=== PATIENT | female | born 1935 | race Asian ===

== ENCOUNTER 2017-02-23 11:24 | Emergency (ER) | payer OTHER ==
[2017-02-23 11:30] VITALS: BMI 27.1
--- NOTE | 2017-02-23 11:46 | PDOC ---
History of Present Illness - History of Present Illness Initial Comments: 02/23/17 12:09 The patient is a 81 year old female, with a significant past medical history of COPD/Asthma, Afib (on Xarelto), CHF, hypertension, and hypothyroidism, who presents to the emergency department with bruising to her head s/p mechanical fall yesterday. The patient states she lost her balance last night while putting on her pants and fell to the floor. She states she was able to get her knee down to the floor first, but reports hitting her head on the door. The patient presents with her daughter who states she was monitoring her mother s/p fall for any nausea, vomiting, mental status changes, which the patient currently denies. The patient reports posterior neck pain and frontal headache and dizziness this morning so was brought to the ED for evaluation. She denies chest pain and shortness of breath. She denies fever, chills, nausea , vomit, diarrhea and constipation. She denies dysuria, frequency, urgency and hematuria. Allergies: NKDA Past surgical history: appendectomy <Melissa Mo - Last Filed: 02/23/17 13:47> - General History Source: Patient Exam Limitations: No Limitations - History of Present Illness Initial Comments: 02/23/17 11:49 <Kevin Brady - Last Filed: 02/23/17 15:13> - General Chief Complaint: Injury Stated Complaint: FALL/ BRUISING TO HEAD Time Seen by Provider: 02/23/17 11:35 Past History <Melissa Mo - Last Filed: 02/23/17 13:47> - Past Medical History Anemia: No Asthma: Yes Cancer: No Cardiac Disorders: Yes (A.FIB) CVA: No COPD: Yes CHF: Yes Dementia: No Diabetes: No GI Disorders: No Disorders: No HTN: Yes Hypercholesterolemia: No Liver Disease: No Seizures: No Thyroid Disease: Yes (HYPO) Other medical history: HARD OF HEARING. - Surgical History Abdominal Surgery: Yes Appendectomy: Yes Cardiac Surgery: No Cholecystectomy: No Lung Surgery: No Neurologic Surgery: No Orthopedic Surgery: Yes (R ARTHROSCOPY) - Psycho/Social/Smoking Cessation Hx Anxiety: No Suicidal Ideation: No Smoking Status: No Smoking History: Never smoked Have you smoked in the past 12 months: No Number of Cigarettes Smoked Daily: 0 Hx Alcohol Use: No Drug/Substance Use Hx: No Substance Use Type: None Hx Substance Use Treatment: No <Kevin Brady - Last Filed: 02/23/17 15:13> - Past Medical History Allergies/Adverse Reactions: Allergies Allergy/AdvReac Type Severity Reaction Status Date / Time budesonide [From Symbicort] Allergy Severe Verified 02/23/17 11:27 formoterol fumarate Allergy Severe Verified 02/23/17 11:27 [From Symbicort] moxifloxacin HCl Allergy Intermediate Verified 02/23/17 11:27 [From Avelox] Penicillins Allergy Mild Hives Verified 02/23/17 11:27 Home Medications: Ambulatory Orders Acetaminophen [Tylenol] 650 mg PO PRN PRN 01/07/16 Atorvastatin Ca [Lipitor] 10 mg PO HS 01/07/16 Calcium 250Mg/Vit-D 125 Units [Oscal 250 mg+D -] 1 combo PO DAILY 01/07/16 Diltiazem Cd [Cardizem Cd -] 180 mg PO DAILY 01/07/16 Fluticasone/Salmeterol [Advair 250-50 Diskus] 2 each IH BID 01/07/16 Levothyroxine [Synthroid -] 25 mcg PO DAILY 01/07/16 Montelukast Na [Singulair -] 10 mg PO HS 01/07/16 Polyvinyl Alcohol [Liquitears] 15 ml OP DAILY 01/07/16 Rivaroxaban [Xarelto] 1 each PO HS 01/07/16 Travoprost (Benzalkonium) [Travatan 0.004% Eye Drop] 5 ml OP HS 01/07/16 Colchicine 0.6 mg PO PRN 07/11/16 Nitrofurantoin Monohyd/M-Cryst [Macrobid -] 100 mg PO BID #10 capsule 02/23/17 Review of Systems - Review of Systems Able to Perform ROS?: Yes Comments:: 02/23/17 12:09 CONSTITUTIONAL: No reported: Fever, Chills, Diaphoresis, Generalized Weakness, Malaise, Loss of Appetite HEENT: (+) Hematoma over left forehead and eye. No reported: Rhinorrhea, Nasal Congestion, Throat Pain, Throat Swelling, Difficulty Swallowing, Mouth Swelling, Ear Pain, Visual Changes CARDIOVASCULAR: No reported: Chest Pain, Syncope, Palpitations, Irregular Heart Rate, Lightheadedness, Peripheral Edema RESPIRATORY: No reported: Cough, Shortness of Breath, SOB with Exertion, Orthopnea, Wheezing , Stridor, Hemoptysis GASTROINTESTINAL: No reported: Abdominal pain, Abdominal Distension, Nausea, Vomiting, Diarrhea, Constipation, Melena, Hematochezia GENITOURINARY: No reported: Dysuria, Frequency, Urgency, Hesitancy, Flank Pain, Genital Pain MUSCULOSKELETAL: No reported: Myalgia, Arthralgia, Joint Swelling, Back pain, Neck Pain SKIN: No reported: Rash, Itching, Pallor HEMEATOLOGIC/IMMUNOLOGIC: No reported: Easy Bleeding, Easy Bruising, Lymphadenopathy, Frequent infections ENDOCRINE: No reported: Unexplained Weight Gain, Unexplained Weight Loss, Heat Intolerance , Cold Intolerance NEUROLOGIC: (+) Headache, Dizziness No reported: Focal Weakness, Paresthesias, Lightheadedness, Unsteady Gait, Seizure, Mental Status Changes, Incontinence PSYCHIATRIC: No reported: Anxiety, Depression <Melissa Mo - Last Filed: 02/23/17 13:47> *Physical Exam - Vital Signs Last Vital Signs Temp Pulse Resp BP Pulse Ox 98.2 F 85 18 147/65 98 02/23/17 11:26 02/23/17 11:26 02/23/17 11:26 02/23/17 11:26 02/23/17 11:26 - Physical Exam Comments: 02/23/17 12:10 GENERAL: The patient is awake, alert, and fully oriented, Nontoxic - in no acute distress. HEAD: (+) large hematoma L foreheadthat is mildly tender, no crepitus or stepffs mildly tender to palpation on L periorbital rim, ecchymosis on b/l forehead and under her L eye. EYES: pupils 3mm symmetrically reactive to light, extraocular movements intact, sclera anicteric, conjunctiva clear. ENT: Normal voice, Moist mucous membranes. NECK: Normal range of motion, +prrapsinal tenderness on L paracervical region no midline tenderness BACK: No bony midline tenderness in the cerivcal/throacic/lumbar region. LUNGS: Breath sounds equal, clear to auscultation bilaterally. No wheezes, no rhonchi, no rales. HEART: Regular rate and rhythm, without murmur, rub or gallop. ABDOMEN: Soft, nontender, normoactive bowel sounds. No guarding, no rebound.No CVA tenderness EXTREMITIES: Normal range of motion, no edema. No clubbing or cyanosis. No cords, erythema, or tenderness. NEUROLOGICAL: No facial assymetry, Normal speech, moving all 4 extremities spontaneously and symmetrically, sensation intact throughout, normal finger to nose and rapid alternating movements. PSYCH: Normal mood, normal affect. SKIN: Warm, Dry, normal turgor <Melissa Mo - Last Filed: 02/23/17 13:47> - Vital Signs Last Vital Signs Temp Pulse Resp BP Pulse Ox 98.2 F 85 18 147/65 98 02/23/17 11:26 02/23/17 11:26 02/23/17 11:26 02/23/17 11:26 02/23/17 11:26 <Kevin Brady - Last Filed: 02/23/17 15:13> Heart Score/ECG Review - ECG Impressions Comment:: 02/23/17 14:03 Twelve-lead EKG was performed and reviewed by me. Irregularly irregular rate of [address] changes suggestive of acute ischemia <Kevin Brady - Last Filed: 02/23/17 15:13> ED Treatment Course - LABORATORY CBC & Chemistry Diagram: 02/23/17 11:52 02/23/17 11:52 - RADIOLOGY Radiograph Interpretation: 02/23/17 13:[address] was read by Dr. Diaz at 13:20 Impression: No CT evidence of acute intracranial pathology Cervical spine CT was read by Dr. Diaz at 13:32 Impression: No fractures identified Facial Bones CT was read by Dr. Diaz at 13:32 Impression: No fractures identified <Melissa Mo - Last Filed: 02/23/17 13:47> - LABORATORY CBC & Chemistry Diagram: 02/23/17 11:52 02/23/17 11:52 <Kevin Brady - Last Filed: 02/23/17 15:13> Medical Decision Making - Medical Decision Making 02/23/17 11:54 81y F hx of copd/asthma, afib on xerolto, chf, htn, hypothyroidism presenst s/p fall - the pt was at home and changing her pants yetserday when she lost her balance and fell landing on knee and striking her head, pt complaining of headache with some dizziness and mild posterior neck pain (paraspinal tenderness ), no focal neuro logic exams non no cerebellar findings. will obtain ct head, facial bones, ct cervical spine will give pt some tylenol for headache A portion of this note was documented by scribe services under my direction. I have reviewed the details of the note, within reason, and agree with the documentation with the following case summary and management plan written by me 02/23/17 15:09 labs reivewed noted for mild leukocytosis UA c/w uti, urine culture sent will treate with macrobid cts and xrays are negative will dc with pmd fu return precautions were discussed I discussed the physical exam findings, ancillary test results and final diagnoses with the patient. I answered all of the patient's questions. The patient was satisfied with the care received and felt comfortable with the discharge plan and treatment plan. The patient will call their primary care physician within 24 hours to arrange follow-up and will return to the Emergency Department with any new, persistent or worsening symptoms. <Kevin Brady - Last Filed: 02/23/17 15:13> *DC/Admit/Observation/Transfer - Attestations Scribe Attestion: 02/23/17 12:10 Documentation prepared by Melissa Mo, acting as coroner/medical examiner for Kevin Brady MD, MD <Melissa Mo - Last Filed: 02/23/17 13:47> - Discharge Dispostion Admit: No <Kevin Brady - Last Filed: 02/23/17 15:13> Diagnosis at time of Disposition: Mechanical Fall UTI (urinary tract infection) Qualifiers: Urinary tract infection type: site unspecified Hematuria presence: with hematuria Qualified Code(s): N39.0 - Urinary tract infection, site not specified ; R31.9 - Hematuria, unspecified Traumatic hematoma of head Qualifiers: Encounter type: initial encounter Qualified Code(s): S00.93XA - Contusion of unspecified part of head, initial encounter Traumatic hematoma of left knee Qualifiers: Encounter type: initial encounter Qualified Code(s): S80.02XA - Contusion of left knee, initial encounter - Discharge Dispostion Disposition: HOME Condition at time of disposition: Improved - Referrals Referrals: Kleber Barragan MD [Primary Care Provider] - - Patient Instructions Printed Discharge Instructions: DI for Urinary Tract Infection (UTI), DI for Hematoma (Bruise) Additional Instructions: Return to the emergency department immediately with ANY new, persistent or worsening symptoms. Take the antibiotics as prescribed. You may take some Tylenol as needed for any pain or discomfort. If you have any fevers or chills or worsening back pain please return to the emergency department for further evaluation You MUST call and follow up with your doctor tomorrow for further evaluation of your symptoms. Results were discussed with you. Please make sure your doctor reviews the results of your emergency evaluation. Print Language: CZECH
[2017-02-23] MEDS ORDERED: ONDANSETRON 4 MG/2 ML VIAL IVPB ONE (12:02)
[2017-02-23] MEDS ORDERED: ACETAMINOPHEN 325 MG TABLET (FP) PO ONE ×2 (12:02→15:10)
[2017-02-23 12:04] LABS: BASOPHIL 0.3 % (0-2.0); EOSINOPHIL 0.9 % (0-4.5); MCH 32.9 pg (25.7-33.7); MCHC 31.9 g/dl (32.0-36.0); MEAN CELL VOLUME 103.4 fl (80-96); MEAN PLT VOLUME 7.4 fl (7.5-11.1); NEUTROPHILS 53.7 % (42.8-82.8); PLATELET COUNT 217 K/MM3 (134-434); RDW 14.7 % (11.6-15.6)
[2017-02-23] MEDS ORDERED: ONDANSETRON 4 MG/2 ML VIAL ONE (12:05)
[2017-02-23] MEDS ORDERED: ACETAMINOPHEN 325 MG TABLET (FP) ONE (12:05)
[2017-02-23 12:20] LABS: INR 1.82 (0.82-1.09); PROTHROMBIN TIME (PATIENT) 20.3 SEC (9.98-11.88)
[2017-02-23 12:29] LABS: ALBUMIN 3.7 g/dl (3.4-5.0); BILIRUBIN,TOTAL 0.5 mg/dL (0.2-1.0); CALCIUM 8.6 mg/dL (8.5-10.1); COCKROFT - GAULT 30.515; CREATININE 1.3 mg/dL (0.55-1.02); TOT PROT 7.4 g/dl (6.4-8.2)
[2017-02-23 14:07] LABS: URINE APPEARANCE CLOUDY; URINE BILIRUBIN NEGATIVE (NEGATIVE); URINE COLOR YELLOW; URINE GLUCOSE (UA) NEGATIVE (NEGATIVE); URINE KETONE NEGATIVE (NEGATIVE); URINE NITRITE POSITIVE (NEGATIVE); URINE PROTEIN NEGATIVE (NEGATIVE); URINE UROBILINOGEN NEGATIVE E.U./dl (0.2-1.0)
[2017-02-23 14:12] LABS: URINE BLOOD 2+ (NEGATIVE); URINE LEUK ESTERASE 3+ (NEGATIVE)
[2017-02-23 14:14] LABS: URINE BACTERIA MODERATE /hpf (NONE SEEN); URINE MUCUS RARE; URINE RBC 5 /hpf (0-3); URINE WBC 237 /hpf (3-5); YEAST FEW
[2017-02-23] MEDS ORDERED: NITROFURANTOIN MACROCRYSTAL 50 MG CAPSULE (FP) PO SCH (15:15)
[2017-02-23] MEDS ORDERED: NITROFURANTOIN MACROCRYSTAL 50 MG CAPSULE (FP) ONE (15:15)
[2017-02-23 15:36] VITALS: BP 122/63; PULSE 63; TEMP 98
--- NOTE | 2017-02-24 11:10 | EKG ---
Test Reason : Blood Pressure : / mmHG Vent. Rate : 089 BPM Atrial Rate : 122 BPM P-R Int : 000 ms QRS Dur : 082 ms QT Int : 376 ms P-R-T Axes : 000 055 057 degrees QTc Int : 457 ms ATRIAL FIBRILLATION WITH PREMATURE VENTRICULAR OR ABERRANTLY CONDUCTED COMPLEXES ABNORMAL ECG WHEN COMPARED WITH ECG OF 09-DEC-2015 18:37, NO SIGNIFICANT CHANGE WAS FOUND Confirmed by ANTONIO BARAHONA MD ([id number]) on 02/24/2017 11:09:52 AM Referred By: Confirmed By:ANTONIO BARAHONA MD
== END 2017-02-23 15:36 | disposition home or self-care (01) ==
LOC: SUPCPDRO 11:24 → JER 11:24
DX: S00.83XA Contusion of other part of head, initial encounter (principal); S80.02XA Contusion of left knee, initial encounter; N39.0 Urinary tract infection, site not specified; R31.9 Hematuria, unspecified; W01.198A Fall on same level from slipping, tripping and stumbling with subsequent striking against other object, initial encounter; Y93.89 Activity, other specified; Y92.018 Other place in single-family (private) house as the place of occurrence of the external cause; I48.91 Unspecified atrial fibrillation; Z79.01 Long term (current) use of anticoagulants; I50.9 Heart failure, unspecified; I10 Essential (primary) hypertension; E03.9 Hypothyroidism, unspecified; J44.9 Chronic obstructive pulmonary disease, unspecified; J45.909 Unspecified asthma, uncomplicated; B96.89 Other specified bacterial agents as the cause of diseases classified elsewhere
CPT/HCPCS: 36415; 70450-TC; 70486-TC; 72125-TC; 73560-TC-RT; 73562-TC-LT; 80053; 81003; 81015; 85025; 85610; 87086; 87186; 93005; 93010; 99284-25

== ENCOUNTER 2017-06-18 06:43 | Day surgery (SDC) | payer OTHER ==
[2017-06-17 11:54] VITALS: BMI 26.2
[2017-06-18] MEDS ORDERED: TROPICAMIDE 1% OPHTH SOLN 15 ML BOTTLE ONE (06:56)
[2017-06-18] MEDS ORDERED: PHENYLEPHRINE 2.5% OPHTH SOLN 15 ML BOTTLE ONE (06:56)
[2017-06-18] MEDS ORDERED: CYCLOPENTOLATE HCL 1% OPHTH SOLN 2 ML BOTTLE ONE (06:56)
[2017-06-18] MEDS ORDERED: CIPROFLOXACIN 0.3% EYE DROPS 5 ML BOTTLE ONE (06:56)
[2017-06-18] MEDS ORDERED: FLURBIPROFEN 0.03% OPHTH SOLN 2.5 ML BOTTLE ONE (06:56)
[2017-06-18] MEDS ORDERED: TROPICAMIDE 1% OPHTH SOLN 15 ML BOTTLE OS ONE ×3 (07:05→07:15)
[2017-06-18] MEDS ORDERED: CIPROFLOXACIN HCL 0.3% OPHTH 2.5ML BOTTLE OS ONE ×3 (07:05→07:15)
[2017-06-18] MEDS ORDERED: FLURBIPROFEN 0.03% OPHTH SOLN 2.5 ML BOTTLE OS ONE ×3 (07:05→07:15)
[2017-06-18] MEDS ORDERED: PHENYLEPHRINE 2.5% OPHTH SOLN 15 ML BOTTLE OS ONE ×3 (07:05→07:15)
[2017-06-18] MEDS ORDERED: CYCLOPENTOLATE HCL 1% OPHTH SOLN 2 ML BOTTLE OS ONE ×3 (07:05→07:15)
[2017-06-18 07:07] VITALS: TEMP 97.7
[2017-06-18] MEDS ORDERED: VANCOMYCIN 500 MG VIAL (RESTRICTED TO ID ONLY) ONE (07:28)
[2017-06-18] MEDS ORDERED: LIDOCAINE HCL/PF 2% SDV 5ML VIAL ONE ×2 (07:28→07:30)
[2017-06-18] MEDS ORDERED: LIDOCAINE HCL 2% JELLY (5 ML/TUBE) ONE (07:28)
[2017-06-18] MEDS ORDERED: LIDOCAINE HCL/PF 1% SDV 5ML VIAL ONE (07:28)
[2017-06-18] MEDS ORDERED: EPINEPHrine/PF 1 MG/1 ML (1:1,000) AMPULE ONE (07:28)
[2017-06-18] MEDS ORDERED: BSS (NA/CA/MG/K) BALANCED SALT SOLUTION OPHTH SOLN 15 ML BOTTLE ONE (07:29)
[2017-06-18] MEDS ORDERED: WATER FOR INJ,STERILE 10 ML ONE (07:29)
[2017-06-18] MEDS ORDERED: POVIDONE-IODINE 5% OPHTHALMIC PREP 30 ML SOLUTION ONE (07:29)
[2017-06-18] MEDS ORDERED: BUPIVACAINE HCL/PF 0.75% 10 ML VIAL ONE (07:29)
[2017-06-18] MEDS ORDERED: ACETAMINOPHEN 325 MG TABLET (FP) PO PRN (07:52)
[2017-06-18] MEDS ORDERED: MIDAZOLAM HCL 2 MG/2 ML SINGLE DOSE VIAL ONE (07:58)
[2017-06-18] MEDS ORDERED: PROPOFOL 20 ML ONE (07:58)
[2017-06-18] MEDS ORDERED: PHENYLEPHRINE 2.5% OPHTH SOLN 15 ML BOTTLE OP SCH (08:00)
[2017-06-18] MEDS ORDERED: TROPICAMIDE 1% OPHTH SOLN 15 ML BOTTLE OP SCH (08:00)
[2017-06-18] MEDS ORDERED: CYCLOPENTOLATE HCL 1% OPHTH SOLN 2 ML BOTTLE OP SCH (08:00)
[2017-06-18] MEDS ORDERED: CIPROFLOXACIN HCL 0.3% OPHTH 2.5ML BOTTLE OP SCH (08:00)
[2017-06-18] MEDS ORDERED: FLURBIPROFEN 0.03% OPHTH SOLN 2.5 ML BOTTLE OP SCH (08:00)
[2017-06-18] MEDS ORDERED: LIDOCAINE HCL/PF 2% SDV 5ML VIAL PNB ONE ×2 (08:18)
[2017-06-18] MEDS ORDERED: BUPIVACAINE HCL/PF 0.75% 10 ML VIAL RB ONE (08:18)
[2017-06-18] MEDS ORDERED: BUPIVACAINE HCL/PF 0.75% 10 ML VIAL PNB ONE (08:18)
[2017-06-18] MEDS ORDERED: LIDOCAINE HCL 0.5% EPINEPHRINE 1:200,000 50 ML VIAL IJ ONE ×2 (08:34→08:38)
[2017-06-18] MEDS ORDERED: LIDOCAINE HCL 1% PRESERVATIVE FREE - 30ML VIAL IO ONE (08:39)
[2017-06-18] MEDS ORDERED: TRYPAN BLUE 0.5 ML DISP.SYRIN IO ONE (08:39)
[2017-06-18] MEDS ORDERED: CHONDROITIN SU A/HYALUR SOD 1 KIT IO ONE (08:40)
--- NOTE | 2017-06-18 09:55 | OP ---
DATE OF OPERATION: DATE OF DICTATION: 06/18/2017 PREOPERATIVE DIAGNOSIS: Cataract, left eye. POSTOPERATIVE DIAGNOSIS: Cataract, left eye. PROCEDURE: Phacoemulsification of left cataract with capsular staining with trypan blue and posterior chamber intraocular lens implantation; lens used [id number], 22.0 diopter power, serial No. [id number]. ANESTHESIA: Peribulbar/modified Van Lint/MAC. COMPLICATIONS: None. PROCEDURE: The patient was brought to the operating room and correctly identified, along with the operative site and correct intraocular lens moore. She was then given a peribulbar block under sedation with 5 mL of a 1:1 mixture of 2% lidocaine and 0.75% bupivacaine. Next, 3 mL of the same mixture was given as a modified Van Lint. The eye was then prepped and draped in the usual sterile fashion, including 5% Betadine solution in the conjunctival sac and an eyelid drape. A lid speculum was then attempted to be placed in the eye and a tight eye socket was noted. There was no hemorrhage noted and time was taken to apply some pressure to the eye socket, as was done after the block. Despite this, there was still an inadequate amount of exposure. The eye was noted to be soft, however, and there was no evidence of any active orbital bleeding. The decision, at this point, was made to do a small lateral cantholysis. Lidocaine 1% with epinephrine was injected into the lateral canthus. A clamp was placed at the lateral canthus, and using Simpson scissors, a small cantholysis was performed. The eyelid speculum was then noted to be placed and adequate exposure achieved. A 5-mm pupil was noted, and given the poor exposure, the decision was made to expand the capsule with trypan blue. A paracentesis port was created, and intracameral lidocaine given, and an air bubble placed. The capsule was stained with trypan blue and removed with further preservative-free lidocaine 1%. Viscoelastic was then placed into the anterior chamber and a temporal clear corneal wound was created. A continuous circular capsulorrhexis was performed and the nucleus hydrodissected with BSS and removed with phacoemulsification via a [id number] approach. The remaining cortical material was irrigated and aspirated from the eye. Viscoelastic was injected to inflate the capsular bag. The lens was injected into the capsular bag. Viscoelastic irrigated and aspirated from the eye. The wounds were then stromal hydrated and checked. No leakage was noted and no suture was placed. Topical vancomycin given. The eye patched and shielded. The patient was discharged from the operating room in a stable condition. TIFF GIBBONS M.D. [id number]
[2017-06-18] MEDS ORDERED: TRYPAN BLUE 0.5 ML DISP.SYRIN ONE (10:12)
[2017-06-18 10:28] VITALS: BP 123/68; PULSE 67
== END 2017-06-18 10:32 | disposition home or self-care (01) ==
LOC: JASU-SURG 06:43
PROVIDERS: ATTEND Ophthalmology
PROC: 08RK3JZ Replacement of Left Lens with Synthetic Substitute, Percutaneous Approach (ICD-10-PCS; principal; 2017-06-18 08:00)
DX: H26.9 Unspecified cataract (principal)

== ENCOUNTER 2017-07-26 16:22 | Emergency (ER) | payer OTHER ==
[2017-07-26 16:39] VITALS: BMI 28.5
--- NOTE | 2017-07-26 17:36 | PDOC ---
History of Present Illness <Jerri Poole - Last Filed: 07/26/17 20:26> - General History Source: Patient, Old Records Exam Limitations: No Limitations - History of Present Illness Initial Comments: 07/26/17 18:35 The patient is an 81 year old female, accompanied by daughter, with a past medical history of hypertension, hyperlipidemia, atrial fibrillation on Xarelto, CHF, COPD, and osteoarthritis, who presents to the emergency department today s/ p fall. As per daughter the patient was found today on the floor and was unable to recall how she had fell. The patient notes that she hit her head and reports associated neck pain, but was unable to recall any other details regarding her fall. She denies fever, vomiting, and nausea. <Luis Enrique Ku - Last Filed: 07/27/17 00:34> - General Chief Complaint: Lightheaded Stated Complaint: FALL Time Seen by Provider: 07/26/17 16:52 Past History - Past Medical History Anemia: No Asthma: Yes Cancer: No Cardiac Disorders: Yes (A.FIB) CVA: Yes (no residual deficet) COPD: Yes CHF: No Dementia: No Diabetes: No GI Disorders: No Disorders: No HTN: Yes Hypercholesterolemia: Yes Liver Disease: No Seizures: No Thyroid Disease: Yes (HYPO) - Surgical History Abdominal Surgery: Yes Appendectomy: Yes Cardiac Surgery: No Cholecystectomy: No Lung Surgery: No Neurologic Surgery: Yes (right eye) Orthopedic Surgery: Yes (R ARTHROSCOPY knee) - Suicide/Smoking/Psychosocial Hx Smoking Status: No Smoking History: Never smoked Have you smoked in the past 12 months: No Number of Cigarettes Smoked Daily: 0 Hx Alcohol Use: No Drug/Substance Use Hx: No Substance Use Type: None Hx Substance Use Treatment: No <Jerri Poole - Last Filed: 07/26/17 20:26> <Luis Enrique Ku - Last Filed: 07/27/17 00:34> - Past Medical History Allergies/Adverse Reactions: Allergies Allergy/AdvReac Type Severity Reaction Status Date / Time budesonide [From Symbicort] Allergy Severe Verified 07/26/17 16:34 formoterol fumarate Allergy Severe Verified 07/26/17 16:34 [From Symbicort] moxifloxacin HCl Allergy Intermediate Verified 07/26/17 16:34 [From Avelox] Penicillins Allergy Mild Hives Verified 07/26/17 16:34 Home Medications: Ambulatory Orders Atorvastatin Ca [Lipitor] 10 mg PO HS 01/07/16 Diltiazem Cd [Cardizem Cd -] 180 mg PO DAILY 01/07/16 Montelukast Na [Singulair -] 10 mg PO HS 01/07/16 Rivaroxaban [Xarelto] 20 mg PO HS 01/07/16 Colchicine 0.6 mg PO PRN 07/11/16 Allopurinol [Zyloprim -] 100 mg PO DAILY 06/17/17 Alprazolam 0.5 mg PO PRN PRN 06/17/17 Fluticasone/Salmeterol [Advair Hfa 115-21 Mcg Inhaler] 2 inh PO DAILY 06/17/17 Levothyroxine [Synthroid -] 125 mcg PO DAILY 06/17/17 Acetaminophen [Tylenol] 650 mg PO Q4HWA PRN 07/26/17 Calcium 250Mg/Vit-D 125 Units [Oscal 250 mg+D -] 1 tab PO DAILY 07/26/17 Cephalexin Monohydrate [Keflex -] 500 mg PO BID #14 capsule 07/26/17 Dextran 70/Hypromellose/Pf [Tears Naturale Free Drops] 1 drop OD QID 07/26/17 Travoprost [Travatan Z] 1 drop OS HS 07/26/17 Review of Systems - Review of Systems Able to Perform ROS?: Yes Comments:: GENERAL/CONSTITUTIONAL: No fever or chills. No weakness. HEAD, EYES, EARS, NOSE AND THROAT: (+) Neck pain. No change in vision. No ear pain or discharge. No sore throat. GASTROINTESTINAL: No nausea, vomiting, diarrhea or constipation. GENITOURINARY: No dysuria, frequency, or change in urination. CARDIOVASCULAR: No chest pain or shortness of breath. RESPIRATORY: No cough, wheezing, or hemoptysis. MUSCULOSKELETAL: (+) Neck pain SKIN: No rash NEUROLOGIC: (+) Headache, vertigo, loss of consciousness, or change in strength/ sensation. ENDOCRINE: No increased thirst. No abnormal weight change. HEMATOLOGIC/LYMPHATIC: No anemia, easy bleeding, or history of blood clots. ALLERGIC/IMMUNOLOGIC: No hives or skin allergy. <Luis Enrique Ku - Last Filed: 07/27/17 00:34> *Physical Exam - Vital Signs Last Vital Signs Temp Pulse Resp BP Pulse Ox 98.2 F 74 19 144/92 98 07/26/17 16:35 07/26/17 16:35 07/26/17 16:35 07/26/17 16:35 07/26/17 16:35 <Jerri Poole - Last Filed: 07/26/17 20:26> - Vital Signs Last Vital Signs Temp Pulse Resp BP Pulse Ox 98.2 F 74 19 144/92 98 07/26/17 16:35 07/26/17 16:35 07/26/17 16:35 07/26/17 16:35 07/26/17 16:35 - Physical Exam Comments: 07/26/17 18:48 GENERAL: Awake, alert, and fully oriented, in no acute distress HEAD:Left occipital hematoma EYES: PERRLA, EOMI, sclera anicteric, conjunctiva clear ENT: Auricles normal inspection, hearing grossly normal, nares patent, oropharynx clear without exudates. Moist mucosa NECK/BACK: (+) Normal ROM, supple, no lymphadenopathy, JVD, or masses. C3 and C4 tenderness LUNGS: Breath sounds equal, clear to auscultation bilaterally. No wheezes, and no crackles HEART: (+) Irregularly, irregular, normal S1 and S2, no murmurs, rubs or gallops ABDOMEN: Soft, nontender, normoactive bowel sounds. No guarding, no rebound. No masses EXTREMITIES: Normal range of motion, no edema. No clubbing or cyanosis. No cords, erythema, or tenderness NEUROLOGICAL: Cranial nerves II through XII grossly intact. SKIN: Warm, Dry, normal turgor, no rashes or lesions noted. <Luis Enrique Ku - Last Filed: 07/27/17 00:34> Heart Score/ECG Review - ECG Impressions Comment:: 07/26/17 19:11 ECG. IMPRESSION: Atrial Fibrillation with occasional PVCs <Luis Enrique Ku - Last Filed: 07/27/17 00:34> ED Treatment Course - LABORATORY CBC & Chemistry Diagram: 07/26/17 17:40 07/26/17 17:40 <Jerri Poole - Last Filed: 07/26/17 20:26> - LABORATORY CBC & Chemistry Diagram: 07/26/17 17:40 07/26/17 17:40 - ADDITIONAL ORDERS Additional order review: Laboratory Results 07/26/17 07/26/17 17:40 17:40 Sodium 138 Potassium 3.1 L D Chloride 101 Carbon Dioxide 29 Anion Gap 8 BUN 28 H Creatinine 1.1 H Creat Clearance w eGFR 47.43 Random Glucose 205 H D Calcium 8.3 L Total Bilirubin 0.7 D AST 16 ALT 34 D Alkaline Phosphatase 82 D Creatine Kinase 99 Troponin I < 0.02 Total Protein 7.1 Albumin 3.3 L TSH 2.23 07/26/17 17:40 RBC 3.82 MCV 102.7 H MCHC 32.5 RDW 14.9 MPV 9.0 D Neutrophils % 60.6 Lymphocytes % 28.4 D Monocytes % 8.6 Eosinophils % 2.0 D Basophils % 0.4 - RADIOLOGY Radiograph Interpretation: 07/27/17 00:33 Exam: CT Head Impression: No acute skull fracture, intracranial hemorrhage or parenchymal edema demonstrated. There is no acute cortical infarction, intracranial mass, edema, hydrocephalus or abnormal extra axial collection. The visualized paranasal sinuses and mastoids clear. Read By: Alvina Randolph MD EXAM: CT CERVICAL SPINE DATE OF SERVICE: 2017-07-26 19:15:27 IMAGES: 226 INDICATION: Fall. COMPARISON: None FINDINGS: Mild leftward curvature of the cervical spine seen. No acute fracture or abnormal prevertebral soft tissue swelling noted. Facet joints intact and normally aligned. Spinous processes intact. Study Description: CT CERVICAL SPINE Modality: CT Location: [facility] Referring Physician: ISABELLA MOELLER Mild disc narrowing and minimal anterolisthesis noted at C4-5. No neck soft tissue hemorrhage or edema seen. No pneumothorax in the lung apices. THIS DOCUMENT HAS BEEN ELECTRONICALLY SIGNED Alvina Randolph MD 07/26/2017 20:13 EST <Luis Enrique Ku - Last Filed: 07/27/17 00:34> Medical Decision Making - Medical Decision Making 07/26/17 18:38 Will obtain CTH and CT c-spine. Will evaluate for any cardiac reasons for fall, as well as pna or UTI. <Jerri Poole - Last Filed: 07/26/17 20:26> - Medical Decision Making 07/26/17 21:30 Patient found to have UTI which is expected based on prior history Treat with Keflex Will discuss with family to administer medications at home Monitor Patient stable for discharge <Luis Enrique Ku - Last Filed: 07/27/17 00:34> *DC/Admit/Observation/Transfer - Discharge Dispostion Admit: No <Jerri Poole - Last Filed: 07/26/17 20:26> - Attestations Scribe Attestion: 07/26/17 18:49 Documentation prepared by Luis Enrique Ku, acting as curator medical museum for Jerri Poole MD. <Luis Enrique Ku - Last Filed: 07/27/17 00:34> Diagnosis at time of Disposition: UTI (urinary tract infection) Qualifiers: Urinary tract infection type: acute cystitis Hematuria presence: without hematuria Qualified Code(s): N30.00 - Acute cystitis without hematuria - Discharge Dispostion Disposition: HOME Condition at time of disposition: Stable - Prescriptions Prescriptions: Cephalexin Monohydrate [Keflex -] 500 mg PO BID #14 capsule - Referrals Referrals: Kleber Barragan MD [Primary Care Provider] - - Patient Instructions Printed Discharge Instructions: DI for Urinary Tract Infection (UTI)
[2017-07-26 17:55] LABS: BASOPHIL 0.4 % (0-2.0); MCH 33.4 pg (25.7-33.7); MCHC 32.5 g/dl (32.0-36.0); MEAN CELL VOLUME 102.7 fl (80-96); NEUTROPHILS 60.6 % (42.8-82.8); PLATELET COUNT 245 K/MM3 (134-434); RDW 14.9 % (11.6-15.6); WHITE BLOOD COUNT 13.8 K/mm3 (4.0-10.0)
[2017-07-26 18:20] LABS: ALBUMIN 3.3 g/dl (3.4-5.0); ANION GAP 8 (8-16); BILIRUBIN,TOTAL 0.7 mg/dL (0.2-1.0); CALCIUM 8.3 mg/dL (8.5-10.1); CO2 29 mmol/L (21-32); CREATININE 1.1 mg/dL (0.55-1.02); GLUCOSE,RANDOM 205 mg/dL (74-106); SGOT/AST 16 U/L (15-37); SGPT/ALT 34 U/L (12-78); TOT PROT 7.1 g/dl (6.4-8.2)
[2017-07-26 18:23] LABS: ALK PHOS 82 U/L (45-117); CPK 99 IU/L (26-192); TROPONIN I < 0.02 ng/ml (0.00-0.05)
[2017-07-26 18:33] LABS: URINE APPEARANCE SLCLOUDY; URINE BILIRUBIN NEGATIVE (NEGATIVE); URINE BLOOD 2+ (NEGATIVE); URINE COLOR YELLOW; URINE GLUCOSE (UA) NEGATIVE (NEGATIVE); URINE KETONE NEGATIVE (NEGATIVE); URINE NITRITE NEGATIVE (NEGATIVE); URINE UROBILINOGEN NEGATIVE mg/dL (0.2-1.0)
[2017-07-26] MEDS ORDERED: POTASSIUM CHLORIDE ORAL LIQUID 20 MEQ/15 ML PO ONE (18:36)
[2017-07-26] MEDS ORDERED: POTASSIUM CHLORIDE ORAL LIQUID 20 MEQ/15 ML ONE (18:39)
[2017-07-26 18:43] LABS: URINE LEUK ESTERASE 1+ (NEGATIVE); URINE PROTEIN 1+ (NEGATIVE)
[2017-07-26 18:48] LABS: CALCIUM OXALATE CRYSTALS RARE /hpf (NONE SEEN); URINE BACTERIA FEW /hpf (NONE SEEN); URINE HYALINE CAST 5 /lpf; URINE MUCUS RARE; URINE RBC 13 /hpf (0-3); URINE WBC 15 /hpf (3-5)
[2017-07-26] MEDS ORDERED: CEFTRIAXONE 1 GM in DEXTROSE 5%-WATER - 50 ML IVPB ONE (19:22)
[2017-07-26] MEDS ORDERED: PIPERACILLIN/TAZOB 3.375 GM 50 ML IVPB ONE (19:42)
[2017-07-26 20:32] VITALS: BP 162/84; PULSE 90; TEMP 98
[2017-07-26] MEDS ORDERED: CEFTRIAXONE 50 ML ONE (20:45)
--- NOTE | 2017-07-27 08:38 | EKG ---
Test Reason : Blood Pressure : / mmHG Vent. Rate : 089 BPM Atrial Rate : 093 BPM P-R Int : 000 ms QRS Dur : 094 ms QT Int : 378 ms P-R-T Axes : 000 054 040 degrees QTc Int : 459 ms ATRIAL FIBRILLATION WITH PREMATURE VENTRICULAR OR ABERRANTLY CONDUCTED COMPLEXES ABNORMAL ECG WHEN COMPARED WITH ECG OF 23-FEB-2017 11:57, NO SIGNIFICANT CHANGE WAS FOUND Confirmed by MD KENYATTA, AMITA ([id number]) on 07/27/2017 8:37:50 AM Referred By: Confirmed By:AMITA YOU MD
== END 2017-07-26 21:21 | disposition home or self-care (01) ==
LOC: JER 16:22
DX: N30.00 Acute cystitis without hematuria (principal); S09.90XA Unspecified injury of head, initial encounter; W18.39XA Other fall on same level, initial encounter; Y93.89 Activity, other specified; Y92.018 Other place in single-family (private) house as the place of occurrence of the external cause; I48.91 Unspecified atrial fibrillation; Z79.01 Long term (current) use of anticoagulants; I25.10 Atherosclerotic heart disease of native coronary artery without angina pectoris; J44.9 Chronic obstructive pulmonary disease, unspecified; E03.9 Hypothyroidism, unspecified; M19.90 Unspecified osteoarthritis, unspecified site; Z86.73 Personal history of transient ischemic attack (TIA), and cerebral infarction without residual deficits; I10 Essential (primary) hypertension
CPT/HCPCS: 36415; 70450-TC; 71010-TC; 72125-TC; 80053; 81003; 81015; 84443; 84484; 85025; 87077; 87086; 93005; 93010; 96365; 99283-25

== ENCOUNTER 2017-11-28 01:20 | Emergency (ER) | payer OTHER ==
[2017-11-28 01:56] VITALS: TEMP 97.6; BMI 27.3
--- NOTE | 2017-11-28 02:30 | PDOC ---
History of Present Illness - General History Source: Patient Exam Limitations: No Limitations - History of Present Illness Initial Comments: 11/28/17 02:58 The patient is an 82 year old female with a significant PMH of COPD, HTN, hyperlipidemia, AFIB (on Xarelto), CVA, hypothyroidism, and osteoarthritis who presents with her daughter to the emergency department with cold-like symptoms and generalized weakness beginning approximately 1 week ago. The patient reports having a productive cough with associated shortness of breath and body aches including a headache and left sided back pain for the past week. She reports receiving Promethazine from her PCP to no relief. 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 However, she reports upon waking this morning that her shortness of breath is at its worst, prompting her visit. She endorses sick contacts at home. The patient denies chest pain and dizziness. Denies fever, chills, nausea, vomit, diarrhea and constipation. Denies dysuria, frequency, urgency and hematuria. Allergies: Budesonide, Formoterol fumarate, Moxifloxacin HCl, Penicillins Past surgical history: Abdominal surgery. Appendectomy. Right eye surgery. Right knee arthroscopy. Social history: No reported cigarette, alcohol, or drug use. PCP: None reported. <Luigi Arnett - Last Filed: 11/28/17 02:58> - General History Source: Patient <Allen Guzman - Last Filed: 11/28/17 06:31> - General Chief Complaint: Weakness Stated Complaint: WEAKNESS Time Seen by Provider: 11/28/17 01:49 Past History <Luigi Arnett - Last Filed: 11/28/17 02:58> - Past Medical History Anemia: No Asthma: Yes Cancer: No Cardiac Disorders: Yes (A.FIB) CVA: Yes (no residual deficet) COPD: Yes CHF: No Dementia: No Diabetes: No GI Disorders: No Disorders: No HTN: Yes Hypercholesterolemia: Yes Liver Disease: No Seizures: No Thyroid Disease: Yes (HYPO) - Surgical History Abdominal Surgery: Yes Appendectomy: Yes Cardiac Surgery: No Cholecystectomy: No Lung Surgery: No Neurologic Surgery: Yes (right eye) Orthopedic Surgery: Yes (R ARTHROSCOPY knee) - Suicide/Smoking/Psychosocial Hx Smoking Status: No Smoking History: Never smoked Have you smoked in the past 12 months: No Number of Cigarettes Smoked Daily: 0 Information on smoking cessation initiated: No Hx Alcohol Use: No Drug/Substance Use Hx: No Substance Use Type: None Hx Substance Use Treatment: No <CarlosAllen - Last Filed: 11/28/17 06:31> - Past Medical History Allergies/Adverse Reactions: Allergies Allergy/AdvReac Type Severity Reaction Status Date / Time budesonide [From Symbicort] Allergy Severe Verified 11/28/17 01:42 formoterol fumarate Allergy Severe Verified 11/28/17 01:42 [From Symbicort] moxifloxacin HCl Allergy Intermediate Verified 11/28/17 01:42 [From Avelox] Penicillins Allergy Mild Hives Verified 11/28/17 01:42 Home Medications: Ambulatory Orders Atorvastatin Ca [Lipitor] 10 mg PO HS 01/07/16 Diltiazem Cd [Cardizem Cd -] 180 mg PO DAILY 01/07/16 Montelukast Na [Singulair -] 10 mg PO HS 01/07/16 Rivaroxaban [Xarelto] 20 mg PO HS 01/07/16 Colchicine 0.6 mg PO PRN 07/11/16 Fluticasone/Salmeterol [Advair Hfa 115-21 Mcg Inhaler] 2 inh PO DAILY 06/17/17 Levothyroxine [Synthroid -] 125 mcg PO DAILY 06/17/17 Acetaminophen [Tylenol] 650 mg PO Q4HWA PRN 07/26/17 Calcium 250Mg/Vit-D 125 Units [Oscal 250 mg+D -] 1 tab PO DAILY 07/26/17 Dextran 70/Hypromellose/Pf [Tears Naturale Free Drops] 1 drop OD QID 07/26/17 Review of Systems - Review of Systems Able to Perform ROS?: Yes Comments:: 11/28/17 02:59 CONSTITUTIONAL: (+) Generalized weakness. (+) Body aches. Absent: fever, chills, diaphoresis, malaise, loss of appetite HEENT: Absent: rhinorrhea, nasal congestion, throat pain, throat swelling, difficulty swallowing, mouth swelling, ear pain, eye pain, visual Changes CARDIOVASCULAR: Absent: chest pain, syncope, palpitations, irregular heart rate, lightheadedness , peripheral edema RESPIRATORY: (+) Shortness of breath. (+) Productive cough. Absent: cough, shortness of breath, dyspnea with exertion, orthopnea, wheezing, stridor, hemoptysis GASTROINTESTINAL: Absent: abdominal pain, abdominal distension, nausea, vomiting, diarrhea, constipation, melena, hematochezia GENITOURINARY: Absent: dysuria, frequency, urgency, hesitancy, hematuria, flank pain, genital pain MUSCULOSKELETAL: (+) Left sided back pain. Absent: arthralgia, joint swelling SKIN: Absent: rash, itching, pallor HEMATOLOGIC/IMMUNOLOGIC: Absent: easy bleeding, easy bruising, lymphadenopathy, frequent infections ENDOCRINE: Absent: unexplained weight gain, unexplained weight loss, heat intolerance, cold intolerance NEUROLOGIC: (+) Headache. Absent: focal weakness or paresthesias, dizziness, unsteady gait, seizure, mental status changes, bladder or bowel incontinence PSYCHIATRIC: Absent: anxiety, depression, suicidal or homicidal ideation, hallucinations. <Luigi Arnett - Last Filed: 11/28/17 02:58> *Physical Exam - Vital Signs Last Vital Signs Temp Pulse Resp BP Pulse Ox 97.6 F 87 20 179/109 98 11/28/17 01:42 11/28/17 01:42 11/28/17 01:42 11/28/17 01:42 11/28/17 01:42 - Physical Exam Comments: 11/28/17 02:59 GENERAL: Well developed, well nourished. Awake and alert. No acute distress. HEENT: Normocephalic, atraumatic. PERRLA, EOMI. No conjunctival pallor. Sclera are non- icteric. Moist mucous membranes. Oropharynx is clear. NECK: Supple. Full ROM. No JVD. Carotid pulses 2+ and symmetric, without bruits. No thyromegaly. No lymphadenopathy. CARDIOVASCULAR: Regular rate and rhythm. No murmurs, rubs, or gallops. Distal pulses are 2+ and symmetric. PULMONARY: No evidence of respiratory distress. Lungs clear to auscultation bilaterally. No wheezing, rales or rhonchi. ABDOMINAL: Soft. Non-tender. Non-distended. No rebound or guarding. No organomegaly. Normoactive bowel sounds. MUSCULOSKELETAL Normal range of motion at all joints. No bony deformities or tenderness. No CVA tenderness. EXTREMITIES: No cyanosis. No clubbing. No edema. No calf tenderness. SKIN: Warm and dry. Normal capillary refill. No rashes. No jaundice. NEUROLOGICAL: Alert, awake, appropriate. Cranial nerves 2-12 intact. No deficits to light touch and temperature in face, upper extremities and lower extremities. No motor deficits in the in face, upper extremities and lower extremities. Normoreflexic in the upper and lower extremities. Normal speech. Toes are downgoing bilaterally. PSYCHIATRIC: Cooperative. Good eye contact. Appropriate mood and affect. <Luigi Arnett - Last Filed: 11/28/17 02:58> - Vital Signs Last Vital Signs Temp Pulse Resp BP Pulse Ox 97.6 F 87 20 179/109 98 11/28/17 01:42 11/28/17 01:42 11/28/17 01:42 11/28/17 01:42 11/28/17 01:42 <Allen Guzman - Last Filed: 11/28/17 06:31> ED Treatment Course - LABORATORY CBC & Chemistry Diagram: 11/28/17 05:19 11/28/17 05:19 <Allen Guzman - Last Filed: 11/28/17 06:31> Medical Decision Making - Medical Decision Making 11/28/17 06:31 Dr. Guzman: The scribe's documentation has been prepared under my direction and personally reviewed by me in its entirery. I confirm that the note above accurately reflects all work, treatment, procedures, and medical decision making performed by me. <Allen Guzman - Last Filed: 11/28/17 06:31> *DC/Admit/Observation/Transfer - Attestations Scribe Attestion: 11/28/17 02:59 Documentation prepared by Luigi Arnett, acting as medical record librarian for Allen Guzman DO. <Luigi Arnett - Last Filed: 11/28/17 02:58> - Discharge Dispostion Admit: No <Allen Guzman - Last Filed: 11/28/17 06:31> Diagnosis at time of Disposition: Cough, CHF (congestive heart failure) - Discharge Dispostion Disposition: HOME Condition at time of disposition: Stable - Patient Instructions Printed Discharge Instructions: DI for Cough -- Adult, Lifestyle Habits May Lower Lifetime Risk of Heart Failure in Men Additional Instructions: Please follow up with your doctor and attend appointment for Echo later on today. Return if any problems.
[2017-11-28 03:33] LABS: URINE APPEARANCE CLEAR; URINE BILIRUBIN NEGATIVE (NEGATIVE); URINE BLOOD 1+ (NEGATIVE); URINE COLOR COLORLESS; URINE GLUCOSE (UA) NEGATIVE (NEGATIVE); URINE KETONE NEGATIVE (NEGATIVE); URINE LEUK ESTERASE NEGATIVE (NEGATIVE); URINE NITRITE NEGATIVE (NEGATIVE); URINE UROBILINOGEN NEGATIVE mg/dL (0.2-1.0)
[2017-11-28 03:41] LABS: URINE PROTEIN 1+ (NEGATIVE)
[2017-11-28 03:49] LABS: EPI CELLS RARE /HPF (FEW)
[2017-11-28 05:23] VITALS: BP 146/88; PULSE 98
[2017-11-28 05:50] LABS: HEMATOCRIT 40.7 % (32.4-45.2); HEMOGLOBIN 13.5 GM/dL (10.7-15.3); LYMPH % 29.6 % (8-40); MCH 33.9 pg (25.7-33.7); MCHC 33.1 g/dl (32.0-36.0); MEAN CELL VOLUME 102.7 fl (80-96); MEAN PLT VOLUME 8.1 fl (7.5-11.1); MONO % 1.1 % (3.8-10.2); NEUT % 69.3 % (42.8-82.8); PLATELET COUNT 242 K/MM3 (134-434); RBC 3.97 M/mm3 (3.60-5.2); RDW 13.8 % (11.6-15.6); WHITE BLOOD COUNT 9.4 K/mm3 (4.0-10.0)
[2017-11-28 06:06] LABS: INR 3.27 (0.82-1.09); PROTHROMBIN TIME (PATIENT) 36.9 SEC (9.98-11.88)
[2017-11-28 06:17] LABS: ANION GAP 13 (8-16); BILIRUBIN,TOTAL 0.5 mg/dL (0.2-1.0); BLOOD UREA NITROGEN 28 mg/dL (7-18); CALCIUM 9.1 mg/dL (8.5-10.1); CHLORIDE 103 mmol/L (98-107); CO2 23 mmol/L (21-32); CREATININE 1.1 mg/dL (0.55-1.02); GLUCOSE,RANDOM 142 mg/dL (74-106); POTASSIUM 3.6 mmol/L (3.5-5.1); SGOT/AST 15 U/L (15-37); SGPT/ALT 22 U/L (12-78); SODIUM 139 mmol/L (136-145); TOT PROT 8.1 g/dl (6.4-8.2)
[2017-11-28 06:21] LABS: ALK PHOS 86 U/L (45-117); N-TERMINAL BNP 2994.68 pg/ml (5-450)
[2017-11-28] MEDS ORDERED: FUROSEMIDE 20 MG TABLET (FP) PO ONE (06:25)
[2017-11-28] MEDS ORDERED: FUROSEMIDE 40 MG TABLET (FP) ONE (06:41)
--- NOTE | 2017-11-28 09:22 | EKG ---
Test Reason : Blood Pressure : / mmHG Vent. Rate : 087 BPM Atrial Rate : 087 BPM P-R Int : 000 ms QRS Dur : 086 ms QT Int : 346 ms P-R-T Axes : 000 074 029 degrees QTc Int : 416 ms POOR DATA QUALITY, INTERPRETATION MAY BE ADVERSELY AFFECTED ATRIAL FIBRILLATION WITH PREMATURE VENTRICULAR OR ABERRANTLY CONDUCTED COMPLEXES NONSPECIFIC ST ABNORMALITY ABNORMAL ECG WHEN COMPARED WITH ECG OF 26-JUL-2017 17:05, NO SIGNIFICANT CHANGE WAS FOUND Confirmed by BAYRON DIAZ MD ([id number]) on 11/28/2017 9:21:43 AM Referred By: Confirmed By:BAYRON DIAZ MD
== END 2017-11-28 07:13 | disposition home or self-care (01) ==
LOC: JER 01:20
DX: I50.9 Heart failure, unspecified (principal); R05 Cough; I48.91 Unspecified atrial fibrillation; Z86.73 Personal history of transient ischemic attack (TIA), and cerebral infarction without residual deficits; I10 Essential (primary) hypertension; E78.00 Pure hypercholesterolemia, unspecified; E03.9 Hypothyroidism, unspecified
CPT/HCPCS: 36415; 71045-TC; 80053; 81003; 81015; 82550; 83880; 84484; 85025; 85610; 87086; 93005; 93010; 99281-25

== ENCOUNTER 2018-02-22 14:15 | Inpatient (IN) | payer OTHER ==
--- NOTE | 2018-02-22 15:33 | EKG ---
Test Reason : Blood Pressure : / mmHG Vent. Rate : 076 BPM Atrial Rate : 092 BPM P-R Int : 000 ms QRS Dur : 082 ms QT Int : 412 ms P-R-T Axes : 000 058 055 degrees QTc Int : 463 ms ATRIAL FIBRILLATION ABNORMAL ECG WHEN COMPARED WITH ECG OF 28-NOV-2017 05:17, ST NO LONGER DEPRESSED IN LATERAL LEADS QT HAS LENGTHENED Confirmed by NADEEM RODARTE, CATHY ([id number]) on 02/22/2018 3:33:14 PM Referred By: Confirmed By:CATHY SILVER MD
[2018-02-22 15:56] LABS: BASO % 0.6 % (0-2.0); HEMATOCRIT 29.2 % (32.4-45.2); HEMOGLOBIN 9.8 GM/dL (10.7-15.3); LYMPH % 29.6 % (8-40); MCH 32.7 pg (25.7-33.7); MCHC 33.6 g/dl (32.0-36.0); MEAN CELL VOLUME 97.2 fl (80-96); MEAN PLT VOLUME 7.8 fl (7.5-11.1); MONO % 8.4 % (3.8-10.2); NEUT % 59.4 % (42.8-82.8); PLATELET COUNT 275 K/MM3 (134-434); RBC 3.01 M/mm3 (3.60-5.2); RDW 17.2 % (11.6-15.6); WHITE BLOOD COUNT 10.6 K/mm3 (4.0-10.0)
--- NOTE | 2018-02-22 16:02 | PDOC ---
History of Present Illness - General History Source: Patient, Family (Daughter ) Exam Limitations: No Limitations - History of Present Illness Initial Comments: 02/22/18 16:29 The patient is a 82 year old female with past medical history of COPD, HTN, AFIB (on Xarelto), CVA hyperlipidemia, hypothyroidism, aortic stenosis, GI bleeding (Dec 2017) and osteoarthritis presents to the emergency department accompanied by her daughter complaining of left leg/facial swelling and pain after 2 falls this past week. The daughter states that 6 days ago, the patient bent over to pick something up and fell and hit her left knee. +HS, no LOC. The daughter reports going to Dr. Lewis who reportedly did X-rays that were negative and suggested ice packs for the knee and eye. The patient sustained another fall in the shower yesterday at which point she hit her L knee again and also hit the left side of her head. No LOC. Daughter brought her in today as the swelling in her leg is worse. The daughter reports previous cases of episodes where the patient would become hypotensive and imbalanced and fall. Pt does not remember any prodrome to the falls, nor can she give a good history to how she fell both times. Denies headache, dizziness, no loss of vision, or blurred vision. Denies any cough SOB, chest pain, nausea and vomiting. Denies fever, chills, nausea, vomit, diarrhea and constipation. Denies dysuria, frequency, urgency and hematuria. Allergies: Budesonide, Formoterol fumarate, Moxifloxacin HCl, Penicillins Past surgical history: Abdominal surgery. Appendectomy. Right eye surgery. Right knee arthroscopy. Social history: No reported cigarette, alcohol, or drug use. PCP: Dr. Kleber Barragan <Allyn Barton - Last Filed: 02/22/18 16:29> <Sapna Vasquez - Last Filed: 02/22/18 18:01> <Haley Walker - Last Filed: 02/23/18 00:51> - General Chief Complaint: Edema Stated Complaint: FALL Time Seen by Provider: 02/22/18 14:49 Past History <Allyn Barton - Last Filed: 02/22/18 16:29> - Past Medical History Anemia: No Asthma: Yes Cancer: No Cardiac Disorders: Yes (A.FIB) CVA: Yes (no residual deficet) COPD: Yes CHF: No Dementia: No Diabetes: No GI Disorders: No Disorders: No HTN: Yes Hypercholesterolemia: Yes Liver Disease: No Seizures: No Thyroid Disease: Yes (HYPO) - Surgical History Abdominal Surgery: Yes Appendectomy: Yes Cardiac Surgery: No Cholecystectomy: No Lung Surgery: No Neurologic Surgery: Yes (right eye) Orthopedic Surgery: Yes (R ARTHROSCOPY knee) - Suicide/Smoking/Psychosocial Hx Smoking Status: No Smoking History: Never smoked Have you smoked in the past 12 months: No Number of Cigarettes Smoked Daily: 0 Information on smoking cessation initiated: No Hx Alcohol Use: No Drug/Substance Use Hx: No Substance Use Type: None Hx Substance Use Treatment: No <Sapna Vasquez - Last Filed: 02/22/18 18:01> <Haley Walker - Last Filed: 02/23/18 00:51> - Past Medical History Allergies/Adverse Reactions: Allergies Allergy/AdvReac Type Severity Reaction Status Date / Time budesonide [From Symbicort] Allergy Severe Verified 11/28/17 01:42 formoterol fumarate Allergy Severe Verified 11/28/17 01:42 [From Symbicort] moxifloxacin HCl Allergy Intermediate Verified 11/28/17 01:42 [From Avelox] Penicillins Allergy Mild Hives Verified 11/28/17 01:42 Home Medications: Ambulatory Orders Atorvastatin Ca [Lipitor] 10 mg PO HS 01/07/16 Diltiazem Cd [Cardizem Cd -] 180 mg PO DAILY 01/07/16 Montelukast Na [Singulair -] 10 mg PO HS 01/07/16 Rivaroxaban [Xarelto] 20 mg PO HS 01/07/16 Colchicine 0.6 mg PO PRN 07/11/16 Levothyroxine [Synthroid -] 125 mcg PO DAILY 06/17/17 Acetaminophen [Tylenol] 650 mg PO Q4HWA PRN 07/26/17 Calcium 250Mg/Vit-D 125 Units [Oscal 250 mg+D -] 1 tab PO DAILY 07/26/17 Dextran 70/Hypromellose/Pf [Tears Naturale Free Drops] 1 drop OD QID 07/26/17 Pantoprazole Sodium [Protonix] 40 mg PO DAILY 02/22/18 Review of Systems - Review of Systems Able to Perform ROS?: Yes Comments:: 02/22/18 16:29 GENERAL/CONSTITUTIONAL: No fever or chills. No weakness. HEAD, EYES, EARS, NOSE AND THROAT: (+) L Eye swelling and bruising. No change in vision. No ear pain or discharge. No sore throat. GASTROINTESTINAL: No nausea, vomiting, diarrhea or constipation. GENITOURINARY: No dysuria, frequency, or change in urination. CARDIOVASCULAR: No chest pain and shortness of breath. RESPIRATORY: No cough, wheezing, or hemoptysis. MUSCULOSKELETAL: +LLE and L facial pain. No neck or back pain. SKIN: No rash NEUROLOGIC: No headache, vertigo, loss of consciousness, or change in strength/ sensation. ENDOCRINE: No increased thirst. No abnormal weight change. HEMATOLOGIC/LYMPHATIC: No anemia, easy bleeding, or history of blood clots. ALLERGIC/IMMUNOLOGIC: No hives or skin allergy. <Allyn Barton - Last Filed: 02/22/18 16:29> *Physical Exam - Vital Signs Last Vital Signs Temp Pulse Resp BP Pulse Ox 97.7 F 68 18 157/69 99 02/22/18 14:29 02/22/18 15:59 02/22/18 15:59 02/22/18 15:59 02/22/18 15:59 - Physical Exam Comments: 02/22/18 16:30 GENERAL: Awake, alert, and fully oriented, in no acute distress HEAD: L facial edema and periorbital ecchymosis. +L zygoma ttp, no deformities EYES: PERRLA, EOMI, no proptosis or lid lag. Sclera anicteric, conjunctiva clear ENT: Auricles normal inspection, no hemotympanum, nares patent, oropharynx clear without exudates. Moist mucosa NECK: Normal ROM, supple, no lymphadenopathy, JVD, or masses LUNGS: Breath sounds equal, clear to auscultation bilaterally. No wheezes, and no crackles HEART: irregularly irregular, rate 80, 3/6 MINA loudest at R upper sternal border. ABDOMEN: Soft, nontender, normoactive bowel sounds. No guarding, no rebound. No masses EXTREMITIES: L knee edematous with large ecchymosis from distal posterior thigh tracking down to calf. Mild ttp to anterior knee. Negative lachmans tests. FROM passively and actively in LLE. 2+ DP pulse. Otherwise, normal range of motion in all extremities, no edema. No clubbing or cyanosis. No cords, erythema, or tenderness BACK: No midline spinal tenderness in cervical/thoracic/lumbar region NEUROLOGICAL: Normal speech, cranial nerves intact, negative pronator drift, 5/ 5 strength in all 4 extremities, normal sensation to light touch in all 4 extremities, normal cerebellar exam, antalgic but steady gait, normal reflexes and tone SKIN: superificial abrasion to anterior L knee. Otherwise, warm, dry, normal turgor, no rashes or lesions noted. <Allyn Barton - Last Filed: 02/22/18 16:29> - Vital Signs Last Vital Signs Temp Pulse Resp BP Pulse Ox 97.7 F 68 18 157/69 99 02/22/18 14:29 02/22/18 15:59 02/22/18 15:59 02/22/18 15:59 02/22/18 15:59 <Sapna Vasquez - Last Filed: 02/22/18 18:01> - Vital Signs Last Vital Signs Temp Pulse Resp BP Pulse Ox 97.7 F 68 18 157/69 99 02/22/18 14:29 02/22/18 15:59 02/22/18 15:59 02/22/18 15:59 02/22/18 15:59 <Haley Walker - Last Filed: 02/23/18 00:51> ED Treatment Course - LABORATORY CBC & Chemistry Diagram: 02/22/18 15:50 02/22/18 15:50 - ADDITIONAL ORDERS Additional order review: Laboratory Results 02/22/18 02/22/18 15:50 15:50 PT with INR Cancelled 13.00 H INR Cancelled 1.15 H D PTT (Actin FS) 29.4 02/22/18 15:50 RBC 3.01 L D MCV 97.2 H MCHC 33.6 RDW 17.2 H D MPV 7.8 Neutrophils % 59.4 Lymphocytes % 29.6 Monocytes % 8.4 D Eosinophils % 2.0 D Basophils % 0.6 D <Allyn Barton - Last Filed: 02/22/18 16:29> - LABORATORY CBC & Chemistry Diagram: 02/22/18 15:50 02/22/18 15:50 - ADDITIONAL ORDERS Additional order review: Laboratory Results 02/22/18 15:50 PT with INR Cancelled INR Cancelled 02/22/18 15:50 RBC 3.01 L D MCV 97.2 H MCHC 33.6 RDW 17.2 H D MPV 7.8 Neutrophils % 59.4 Lymphocytes % 29.6 Monocytes % 8.4 D Eosinophils % 2.0 D Basophils % 0.6 D - RADIOLOGY Radiology Studies Ordered: Category Date Time Status CERVICAL SPINE CT W/O CONTR [CT] Stat CT Scan 02/22/18 15:[address] W/O CONTRAST [CT] Stat CT Scan 02/22/18 15:[address] WITHOUT CONTRAST [CT] Stat CT Scan 02/22/18 15:04 Ordered CHEST X-RAY PORTABLE* [RAD] Stat Radiology 02/22/18 15:04 Ordered FEMUR-LEFT [RAD] Stat Radiology 02/22/18 15:07 Ordered KNEE 3 POS-LEFT [RAD] Stat Radiology 02/22/18 15:07 Ordered PELVIS [RAD] Stat Radiology 02/22/18 15:04 Ordered DUPLEX VASCUL US-1 LEG [US] Stat Ultrasound 02/22/18 15:05 Ordered <Sapna Vasquez - Last Filed: 02/22/18 18:01> - LABORATORY CBC & Chemistry Diagram: 02/22/18 15:50 02/22/18 15:50 - ADDITIONAL ORDERS Additional order review: Laboratory Results 02/22/18 02/22/18 02/22/18 17:52 15:50 15:50 PT with INR Cancelled INR Cancelled PTT (Actin FS) Sodium 128 L Potassium 4.9 Chloride 94 L Carbon Dioxide 23 Anion Gap 11 BUN 41 H Creatinine 1.4 H Creat Clearance w eGFR 35.82 Random Glucose 112 H Calcium 8.3 L Magnesium 1.9 Total Bilirubin 0.8 D AST 32 ALT 23 Alkaline Phosphatase 76 Troponin I B-Natriuretic Peptide Total Protein 7.3 Albumin 3.6 Urine Color Straw Urine Appearance Clear Urine pH 7.0 Ur Specific [place] 1.005 Urine Protein Negative Urine Glucose (UA) Negative Urine Ketones Negative Urine Blood Negative Urine Nitrite Negative Urine Bilirubin Negative Urine Urobilinogen Negative Ur Leukocyte Esterase 2+ H Urine WBC (Auto) 35 Urine RBC (Auto) <1 Ur Epithelial Cells Rare 02/22/18 02/22/18 15:50 15:50 PT with INR 13.00 H INR 1.15 H D PTT (Actin FS) 29.4 Sodium Potassium Chloride Carbon Dioxide Anion Gap BUN Creatinine Creat Clearance w eGFR Random Glucose Calcium Magnesium Total Bilirubin AST ALT Alkaline Phosphatase Troponin I < 0.02 B-Natriuretic Peptide 968.95 H Total Protein Albumin Urine Color Urine Appearance Urine pH Ur Specific [place] Urine Protein Urine Glucose (UA) Urine Ketones Urine Blood Urine Nitrite Urine Bilirubin Urine Urobilinogen Ur Leukocyte Esterase Urine WBC (Auto) Urine RBC (Auto) Ur Epithelial Cells 02/22/18 15:50 RBC 3.01 L D MCV 97.2 H MCHC 33.6 RDW 17.2 H D MPV 7.8 Neutrophils % 59.4 Lymphocytes % 29.6 Monocytes % 8.4 D Eosinophils % 2.0 D Basophils % 0.6 D <Haley Walker - Last Filed: 02/23/18 00:51> Medical Decision Making - Medical Decision Making 02/22/18 18:01 82yo F with MMP including AF on xarelto presents to the ED with L facial and LLE injury after 2 falls this week. Vitals unremarkable. Unclear why the patient has fallen twice in the last week but she denies LOC. She can not recall having prodromal syndrome but states she simply just "fell over" <Sapna Vasquez - Last Filed: 02/22/18 18:01> - Medical Decision Making 02/22/18 20:08 Patient Name: URBANO MÉNDEZ THIS IS A PRELIMINARY REPORT FROM [facility] DATE OF SERVICE: 2018-02-22 16:12:19 IMAGES: 20 EXAM: VENOUS DUPLEX UNILATERAL Left lower extremity venous Doppler study REASON FOR EXAM: Swelling Pain COMPARISON:None FINDINGS: Transverse and longitudinal chin scale views obtained. There is no echogenic thrombus. There is normal color flow filling the vessels with compressibility . Doppler demonstrates phasic and spontaneous flow of the common femoral, superficial femoral, popliteal and proximal calf veins. There is no suspicious solid or cystic mass. IMPRESSION: No sonographic evidence of deep vein thrombosis, left leg 02/22/18 21:56 Patient Name: URBANO MÉNDEZ THIS IS A PRELIMINARY REPORT FROM [facility] EXAM: CTA bilateral lower extremity runoff IMAGES:[id number] DATE OF EXAM: 2018-02-22 19:17:21 REASON FOR EXAM: Fall with bleeding into the lower extremity COMPARISON: None Findings: Left lower extremity: Common femoral artery, superficial femoral artery, profunda femoral artery, popliteal artery, anterior tibial artery, and coronal arteries appear patent without severe stenosis extending into the vessels of the foot. Posterior tibial artery is occluded at its mid portion. Approximately 5.5 cm x 4 cm collection at the medial aspect of the distal thigh likely representing a hematoma given the patient's history. There is adjacent generalized subcutaneous edema. There is no active contrast extravasation. Small knee effusion. Right lower extremity: Common femoral artery, profunda femoral artery, superficial femoral artery, popliteal artery, posterior tibial artery, and peroneal arteries appear patent without severe stenosis with contrast extending into the arteries of the foot. Anterior tibial artery is occluded at its proximal portion. No contrast extravasation. Small knee effusion. Degenerative changes noted. No acute fracture or dislocation. THIS DOCUMENT HAS BEEN ELECTRONICALLY SIGNED 02/23/18 00:50 Dr Gonzalez aware of the patient. Dr. Barragan also called back about the patient and he is aware of the case. Pt will be admitted to telemetry unit for further workup. <Haley Walker - Last Filed: 02/23/18 00:51> *DC/Admit/Observation/Transfer - Attestations Scribe Attestion: 02/22/18 16:31 Documentation prepared by Allyn Barton, acting as medical practice manager for Sapna Vasquez MD. <Allyn Barton - Last Filed: 02/22/18 16:29> <Sapna Vasquez - Last Filed: 02/22/18 18:01> - Discharge Dispostion Admit: Yes <Haley Walker - Last Filed: 02/23/18 00:51> Diagnosis at time of Disposition: Frequent falls, Hyponatremia, Blood thinned due to long-term anticoagulant use , Head trauma - Discharge Dispostion Condition at time of disposition: Guarded
[2018-02-22 16:09] LABS: INR 1.15 (0.82-1.09)
[2018-02-22 16:12] LABS: ACTIVATED PTT 29.4 SECONDS (26.9-34.4)
[2018-02-22 16:29] LABS: ALBUMIN 3.6 g/dl (3.4-5.0); ALK PHOS 76 U/L (45-117); ANION GAP 11 (8-16); BILIRUBIN,TOTAL 0.8 mg/dL (0.2-1.0); BLOOD UREA NITROGEN 41 mg/dL (7-18); CALCIUM 8.3 mg/dL (8.5-10.1); CHLORIDE 94 mmol/L (98-107); CO2 23 mmol/L (21-32); CREATININE 1.4 mg/dL (0.55-1.02); GLUCOSE,RANDOM 112 mg/dL (74-106); SGPT/ALT 23 U/L (12-78); SODIUM 128 mmol/L (136-145); TOT PROT 7.3 g/dl (6.4-8.2)
[2018-02-22 16:35] LABS: MAGNESIUM 1.9 mg/dL (1.8-2.4); POTASSIUM 4.9 mmol/L (3.5-5.1); SGOT/AST 32 U/L (15-37)
[2018-02-22 17:13] LABS: N-TERMINAL BNP 968.95 pg/ml (5-450)
[2018-02-22 17:59] LABS: URINE APPEARANCE CLEAR; URINE BILIRUBIN NEGATIVE (<2.0 mg/dL); URINE COLOR STRAW; URINE GLUCOSE (UA) NEGATIVE (NEGATIVE); URINE KETONE NEGATIVE (NEGATIVE); URINE NITRITE NEGATIVE (NEGATIVE); URINE PROTEIN NEGATIVE (NEGATIVE); URINE UROBILINOGEN NEGATIVE mg/dL (0.2-1.0)
[2018-02-22 18:05] LABS: URINE LEUK ESTERASE 2+ (NEGATIVE)
[2018-02-22 18:07] LABS: EPI CELLS RARE /HPF (FEW)
[2018-02-22] MEDS ORDERED: SODIUM CHLORIDE 1,000 ML IV STA (19:11)
--- NOTE | 2018-02-22 20:18 | PN ---
Teaching Attending Note Name of Resident: Piter Billingsley ATTENDING PHYSICIAN STATEMENT I saw and evaluated the patient. I reviewed the resident's note and discussed the case with the resident. I agree with the resident's findings and plan as documented. SUBJECTIVE: 80 yo F with pmhx. of HTN, COPD, Ashtma, OA, Gout, hypothyriodism, CVA (13' no residual defecits), A-Fib on Angel, MR/TR, who presents with cough and shortness of breath. States that her mucous has been green. States also she has pain in the left knee. States she fell over a week ago and saw Ortho Dr. Lewis at that time, notes knee was much better at that time. No fracture/ Injury was found at that time according too patient. No urinary urgency or frequency. States she always has urinary tract infections. OBJECTIVE: Physical: VS: Vital Signs Period Temp Pulse Resp BP Sys/Peck Pulse Ox Last 24 Hr 97.7 F 18- 18-20 122-157/67-69 98-99 GEN: NAD, Resting in bed, AA0X3 HEENT:NCAT, PERRL, L. Eye Periorbital bruise, Throat without erythema or exudates CARD: RRR S1, S2 RESP: CTAB, L. Ribs TTP ABD: BSx4, NTD to palpation EXT: Pulses intact, L. Knee warm, edematous and TTP, with surrounding erythema and echhymosis extending to L. Thigh/Groin. Thigh non- TTP. R. LE - C/C/E, Bilateral UE - C/C/E CBCD WBC 10.6 K/mm3 (4.0-10.0) H 02/22/18 15:50 RBC 3.01 M/mm3 (3.60-5.2) L D 02/22/18 15:50 Hgb 9.8 GM/dL (10.7-15.3) L D 02/22/18 15:50 Hct 29.2 % (32.4-45.2) L D 02/22/18 15:50 MCV 97.2 fl (80-96) H 02/22/18 15:50 MCHC 33.6 g/dl (32.0-36.0) 02/22/18 15:50 RDW 17.2 % (11.6-15.6) H D 02/22/18 15:50 Plt Count 275 K/MM3 (134-434) 02/22/18 15:50 MPV 7.8 fl (7.5-11.1) 02/22/18 15:50 CMP Sodium 128 mmol/L (136-145) L 02/22/18 15:50 Potassium 4.9 mmol/L (3.5-5.1) 02/22/18 15:50 Chloride 94 mmol/L (98-107) L 02/22/18 15:50 Carbon Dioxide 23 mmol/L (21-32) 02/22/18 15:50 Anion Gap 11 (8-16) 02/22/18 15:50 BUN 41 mg/dL (7-18) H 02/22/18 15:50 Creatinine 1.4 mg/dL (0.55-1.02) H 02/22/18 15:50 Creat Clearance w eGFR 35.82 (>60) 02/22/18 15:50 Random Glucose 112 mg/dL (74-106) H 02/22/18 15:50 Calcium 8.3 mg/dL (8.5-10.1) L 02/22/18 15:50 Total Bilirubin 0.8 mg/dL (0.2-1.0) D 02/22/18 15:50 AST 32 U/L (15-37) 02/22/18 15:50 ALT 23 U/L (12-78) 02/22/18 15:50 Alkaline Phosphatase 76 U/L (45-117) 02/22/18 15:50 Total Protein 7.3 g/dl (6.4-8.2) 02/22/18 15:50 Albumin 3.6 g/dl (3.4-5.0) 02/22/18 15:50 CARDIAC ENZYMES Troponin I < 0.02 ng/ml (0.00-0.05) 02/22/18 15:50 CXR: Cardiomegaly CT HEAD- Negative CT C-SPINE: Negative Femur Xray: EKG: A-Fib 76, QtC 463 ] Duplex LE: Negative Ambulatory Orders Atorvastatin Ca [Lipitor] 10 mg PO HS 01/07/16 Diltiazem Cd [Cardizem Cd -] 180 mg PO DAILY 03/06/16 Montelukast Na [Singulair -] 10 mg PO HS 01/07/16 Rivaroxaban [Xarelto] 20 mg PO HS 01/07/16 Colchicine 0.6 mg PO PRN 07/11/16 Levothyroxine [Synthroid -] 125 mcg PO DAILY 06/17/17 Acetaminophen [Tylenol] 650 mg PO Q4HWA PRN 07/26/17 Calcium 250Mg/Vit-D 125 Units [Oscal 250 mg+D -] 1 tab PO DAILY 07/26/17 Dextran 70/Hypromellose/Pf [Tears Naturale Free Drops] 1 drop OD QID 07/26/17 Pantoprazole Sodium [Protonix] 40 mg PO DAILY 02/22/18 ASSESSMENT AND PLAN: 80 yo F with pmhx. of HTN, COPD, Ashtma, OA, Gout, hypothyriodism, CVA (13' no residual defecits), A-Fib on Xarelto, MR/TR, who presents with cough, shortness of breath and knee pain, being admitted for inability to bear weight. 1.) L. Knee Pain/Cellulitis - Unbale to bear weight - FU Knee Xray - CTA with runoff- Pre-JUAREZ READ No extravasation, mild knee effusion - ESR/CRP - CBC Q 8- Transfuse <8, Type & Screen - Ortho consult - Pt. is Up to date on Tetanus - Hold Xarelto 2.) Frequent Falls/Rib Pain - Rib Series - Orthostatic VS - CT HEAD/C-Spine negative - TSH - Neuro Consult - B12/Folate - UA +., chronic and asyx. 3.) SHARON/Hyponatremia - Uosm/Sosm - Ulytes - Repeat Na, Not to increase >8 MEQ in 24 hrs - Hold HcTz ( as per pt. recently started on) 4.) COPD - Not in Exacerbation - Nebs prn - C/W Home meds 5.) Hx. Of Gout - Colchicine 0.3mg QD 6.) A-Fib - Rate Controlled - In light of possible bleed - Hold Xarelto 7.) UTI - Asymptomatic Currently - Treat only if Sx, chronic 8.) Dvt Ppx - Ambulate when Possible - No A/C due to risk of bleed Place in Med-Sx
--- NOTE | 2018-02-22 21:59 | HP ---
CHIEF COMPLAINT: Fall PCP: Dr. Kleber Barragan HISTORY OF PRESENT ILLNESS: The patient is a 82 year old f with pmh of COPD, HTN, AFIB (on Xarelto), CVA hyperlipidemia, hypothyroidism, aortic stenosis, GI bleeding (Dec 2017), OA, recurrent UTI's, presented to the ED w/ daughter because of left face and knee swelling and bruising after 2 episodes of falling this week. Patients daughter says the first fall occurred 6 days ago after patient tried bending down to pick something up. She hit her left knee which caused some swelling and bruising. She says the knee became worse after falling the second time on her knee. She noticed it became more swollen and bruised. Patient complains of pain on her left knee with pain on the left side of face. Patent denies losing consciousness both times. Patient saw Dr. Lewis after first fall and says no fracture or injury was found during that time. The daughter says she held her Xarelto yesterday after the fall. Patients daughter also states that patient has history of postural hypotension and tends to have a history of falling. She also mentions have chronic and recurrent UTI's w/ burning w/ urination. Denies headache, dizziness, vision loss, sob, chest pain, n/v, chills, fevers, and diarrhea. ER course was notable for: (1) Hyponatremia 128 Na (2) Knee/femur/hip/chest xray unemarkable for acute changes (3) LE venous duplex neg Recent Travel: n/a PAST MEDICAL HISTORY: per HPI PAST SURGICAL HISTORY: n/a Social History: Smoking: denies Alcohol: denies Drugs: denies Family History: Allergies budesonide [From Symbicort] Allergy (Severe, Verified 11/28/17 01:42) formoterol fumarate [From Symbicort] Allergy (Severe, Verified 11/28/17 01:42) moxifloxacin HCl [From Avelox] Allergy (Intermediate, Verified 11/28/17 01:42) Penicillins Allergy (Mild, Verified 11/28/17 01:42) Hives HOME MEDICATIONS: Home Medications Medication Instructions Recorded Atorvastatin Ca [Lipitor] 10 mg PO HS 01/07/16 Diltiazem Cd [Cardizem Cd -] 180 mg PO DAILY 01/07/16 Montelukast Na [Singulair -] 10 mg PO HS 01/07/16 Rivaroxaban [Xarelto] 20 mg PO HS 01/07/16 Colchicine 0.6 mg PO PRN 07/11/16 Levothyroxine [Synthroid -] 125 mcg PO DAILY 06/17/17 Acetaminophen [Tylenol] 650 mg PO Q4HWA PRN 07/26/17 Calcium 250Mg/Vit-D 125 Units 1 tab PO DAILY 07/26/17 [Oscal 250 mg+D -] Dextran 70/Hypromellose/Pf [Tears 1 drop OD QID 07/26/17 Naturale Free Drops] Pantoprazole Sodium [Protonix] 40 mg PO DAILY 02/22/18 REVIEW OF SYSTEMS CONSTITUTIONAL: Absent: fever, chills, diaphoresis, generalized weakness, malaise, loss of appetite, weight change HEENT: Absent: rhinorrhea, nasal congestion, throat pain, throat swelling, difficulty swallowing, mouth swelling, ear pain, eye pain, visual changes CARDIOVASCULAR: Absent: chest pain, syncope, palpitations, irregular heart rate, lightheadedness , peripheral edema RESPIRATORY: Absent: cough, shortness of breath, dyspnea with exertion, orthopnea, wheezing, stridor, hemoptysis GASTROINTESTINAL: Absent: abdominal pain, abdominal distension, nausea, vomiting, diarrhea, constipation, melena, hematochezia GENITOURINARY: dysuria Absent: frequency, urgency, hesitancy, hematuria, flank pain, genital pain MUSCULOSKELETAL: Absent: myalgia, arthralgia, joint swelling, back pain, neck pain SKIN: Absent: rash, itching, pallor HEMATOLOGIC/IMMUNOLOGIC: Absent: easy bleeding, easy bruising, lymphadenopathy, frequent infections NEUROLOGIC: Absent: headache, focal weakness or paresthesias, dizziness, unsteady gait, seizure, mental status changes, bladder or bowel incontinence PHYSICAL EXAMINATION Vital Signs - 24 hr 02/22/18 02/22/18 02/22/18 14:16 14:29 15:59 Temperature 97.7 F Pulse Rate 18 L Pulse Rate [ 68 Apical] Respiratory 20 18 Rate Blood Pressure 122/67 Blood Pressure 157/69 [Left Arm] O2 Sat by Pulse 98 98 99 Oximetry (%) 02/22/18 20:35 Temperature 98.0 F Pulse Rate Pulse Rate [ 71 Apical] Respiratory 18 Rate Blood Pressure Blood Pressure 137/64 [Left Arm] O2 Sat by Pulse 99 Oximetry (%) GENERAL: Awake, alert, and fully oriented, in no acute distress. HEAD: Left sided facial edema, and periorbital ecchymosis. tender to palpation around left eye. EYES: EOMI, scleral anicteric EARS, NOSE, THROAT: oropharynx clear without exudates. Moist mucous membranes. NECK: Normal range of motion, supple without lymphadenopathy, JVD, or masses. LUNGS: Breath sounds equal, clear to auscultation bilaterally. No wheezes, and no crackles. HEART: irregularly irregular, 3/6 systolic murmur MONIQUE ABDOMEN: Soft, nontender, not distended, normoactive bowel sounds, no guarding, no rebound, no masses. UPPER EXTREMITIES: 2+ pulses, warm, well-perfused. No cyanosis. No clubbing. No peripheral edema. LOWER EXTREMITIES: Ant. L Knee tender to palpation, warm, and edematous, w/ large ecchymosis ant and post thigh down to calf. 2+ pulses througout NEUROLOGICAL: Cranial nerves II-XII intact. Normal speech. PSYCHIATRIC: Cooperative. Good eye contact. Appropriate mood and affect. Laboratory Results - last 24 hr 02/22/18 02/22/18 02/22/18 15:50 15:50 15:50 WBC 10.6 H RBC 3.01 L D Hgb 9.8 L D Hct 29.2 L D MCV 97.2 H MCH 32.7 MCHC 33.6 RDW 17.2 H D Plt Count 275 MPV 7.8 Neutrophils % 59.4 Lymphocytes % 29.6 Monocytes % 8.4 D Eosinophils % 2.0 D Basophils % 0.6 D PT with INR 13.00 H INR 1.15 H D PTT (Actin FS) 29.4 Sodium Potassium Chloride Carbon Dioxide Anion Gap BUN Creatinine Creat Clearance w eGFR Random Glucose Calcium Magnesium Total Bilirubin AST ALT Alkaline Phosphatase Troponin I < 0.02 B-Natriuretic Peptide 968.95 H Total Protein Albumin Urine Color Urine Appearance Urine pH Ur Specific [place] Urine Protein Urine Glucose (UA) Urine Ketones Urine Blood Urine Nitrite Urine Bilirubin Urine Urobilinogen Ur Leukocyte Esterase Urine WBC (Auto) Urine RBC (Auto) Ur Epithelial Cells Blood Type Antibody Screen 02/22/18 02/22/18 02/22/18 15:50 15:50 17:52 WBC RBC Hgb Hct MCV MCH MCHC RDW Plt Count MPV Neutrophils % Lymphocytes % Monocytes % Eosinophils % Basophils % PT with INR Cancelled INR Cancelled PTT (Actin FS) Sodium 128 L Potassium 4.9 Chloride 94 L Carbon Dioxide 23 Anion Gap 11 BUN 41 H Creatinine 1.4 H Creat Clearance w eGFR 35.82 Random Glucose 112 H Calcium 8.3 L Magnesium 1.9 Total Bilirubin 0.8 D AST 32 ALT 23 Alkaline Phosphatase 76 Troponin I B-Natriuretic Peptide Total Protein 7.3 Albumin 3.6 Urine Color Straw Urine Appearance Clear Urine pH 7.0 Ur Specific [place] 1.005 Urine Protein Negative Urine Glucose (UA) Negative Urine Ketones Negative Urine Blood Negative Urine Nitrite Negative Urine Bilirubin Negative Urine Urobilinogen Negative Ur Leukocyte Esterase 2+ H Urine WBC (Auto) 35 Urine RBC (Auto) <1 Ur Epithelial Cells Rare Blood Type Antibody Screen 02/22/18 18:37 WBC RBC Hgb Hct MCV MCH MCHC RDW Plt Count MPV Neutrophils % Lymphocytes % Monocytes % Eosinophils % Basophils % PT with INR INR PTT (Actin FS) Sodium Potassium Chloride Carbon Dioxide Anion Gap BUN Creatinine Creat Clearance w eGFR Random Glucose Calcium Magnesium Total Bilirubin AST ALT Alkaline Phosphatase Troponin I B-Natriuretic Peptide Total Protein Albumin Urine Color Urine Appearance Urine pH Ur Specific [place] Urine Protein Urine Glucose (UA) Urine Ketones Urine Blood Urine Nitrite Urine Bilirubin Urine Urobilinogen Ur Leukocyte Esterase Urine WBC (Auto) Urine RBC (Auto) Ur Epithelial Cells Blood Type A POSITIVE Antibody Screen Negative ASSESSMENT/PLAN: The patient is a 82 year old f with pmh of COPD, HTN, AFIB (on Xarelto), CVA hyperlipidemia, hypothyroidism, aortic stenosis, GI bleeding (Dec 2017), OA, recurrent UTI's, presented with multiple falls and found to be hyponatremic w/ SHARON. #Left Knee Pain w/ poss Cellulitis -s/p falling x 2 -FU Xray's official read, prelim reading neg -LE CTA prelim reading: mild knee effusion, no extravasation. -Hgb 9.8. Monitor CBC -Hold Xarelto -Orhto consulted -Clindamycin IV abx -ID consulted #Frequent Falls -orthostatic vital signs (pt currently unable to bear weight) -CT head/C spine neg -TSH, b12, folate -hold HCTZ/Spironolactone -Positive U/A w/ 2+ LE, currently asymptomatic -FU Xray L Rib #Hyponatremia/SHARON -Urine and serum osm -FU repeat BMP -urine lytes -monitor -Do not increase Na > 6 meq in 24 hours -held HCTZ -renal consulted #UTI -currently asymptomatic #A-fib -Rate controlled w/ Cardizem -hold xarelto #Dvt Ppx -AC held at this time Med-surge Visit type - Emergency Visit Emergency Visit: Yes ED Registration Date: 02/22/18 Care time: The patient presented to the Emergency Department on the above date and was hospitalized for further evaluation of their emergent condition. - New Patient This patient is new to me today: Yes Date on this admission: 02/23/18 - Critical Care Critical Care patient: No Hospitalist Screening - Colonoscopy Questionnaire Colonoscopy Questionnaire: Colonoscopy Questionnaire - Patient: 50 - 75 years old and never had a screening colonoscopy: Unknown History of colon or rectal polyps, or CA: Unknown History of IBD, Crohn's disease or UC: Unknown History of abdominal radiation therapy as a child: Unknown - Relative: 1 with colon or rectal CA, or polyps at age 60 or younger: Unknown Colon or rectal CA diagnosed at age 45 or younger: Unknown Multiple relatives with colon or rectal CA: Unknown - Outcome: Screening Result: Negative Screen
[2018-02-22] MEDS ORDERED: PATIENT'S OWN MEDICATION (NON-FORMULARY) (Colchicine [Colchicine] 0.6 MG) PO SCH (22:45)
[2018-02-22 23:02] LABS: URINE CREATININE < 13.0 mg/dL (20-320)
[2018-02-23] MEDS: CLINDAMYCIN 300 MG PREMIX IVPB 300 MG/50 ML BAG IVPB SCH ×4 (00:57→17:11)
[2018-02-23 01:37] VITALS: BMI 26.3
[2018-02-23 02:44] LABS: ALBUMIN 3.5 g/dl (3.4-5.0); ANION GAP 12 (8-16); BILIRUBIN,TOTAL 0.8 mg/dL (0.2-1.0); BLOOD UREA NITROGEN 36 mg/dL (7-18); CALCIUM 8.3 mg/dL (8.5-10.1); CHLORIDE 99 mmol/L (98-107); CO2 20 mmol/L (21-32); CREATININE 1.4 mg/dL (0.55-1.02); GLUCOSE,RANDOM 133 mg/dL (74-106); POTASSIUM 4.5 mmol/L (3.5-5.1); SGOT/AST 20 U/L (15-37); SGPT/ALT 21 U/L (12-78); SODIUM 131 mmol/L (136-145)
[2018-02-23 02:47] LABS: ALK PHOS 75 U/L (45-117)
[2018-02-23] MEDS: LEVOTHYROXINE NA 125 MCG TABLET (FP) PO SCH (06:16)
[2018-02-23 07:26] LABS: BASO % 0.4 % (0-2.0); EOS % 2.6 % (0-4.5); HEMATOCRIT 30.4 % (32.4-45.2); HEMOGLOBIN 10.1 GM/dL (10.7-15.3); LYMPH % 29.9 % (8-40); MCH 32.5 pg (25.7-33.7); MCHC 33.1 g/dl (32.0-36.0); MEAN PLT VOLUME 7.3 fl (7.5-11.1); MONO % 9.2 % (3.8-10.2); NEUT % 57.9 % (42.8-82.8); PLATELET COUNT 289 K/MM3 (134-434); RDW 17.2 % (11.6-15.6); WHITE BLOOD COUNT 10.7 K/mm3 (4.0-10.0)
[2018-02-23 07:47] LABS: INR 1.13 (0.82-1.09); PROTHROMBIN TIME (PATIENT) 12.8 SEC (9.98-11.88)
[2018-02-23 08:01] LABS: ALBUMIN 3.7 g/dl (3.4-5.0); ANION GAP 8 (8-16); BLOOD UREA NITROGEN 32 mg/dL (7-18); CALCIUM 8.9 mg/dL (8.5-10.1); CHLORIDE 103 mmol/L (98-107); CO2 23 mmol/L (21-32); GLUCOSE,RANDOM 95 mg/dL (74-106); POTASSIUM 4.5 mmol/L (3.5-5.1); SODIUM 134 mmol/L (136-145)
[2018-02-23 08:04] LABS: ALK PHOS 83 U/L (45-117); CREATININE 1.1 mg/dL (0.55-1.02); SGOT/AST 21 U/L (15-37); SGPT/ALT 20 U/L (12-78); TOT PROT 7.3 g/dl (6.4-8.2)
[2018-02-23] MEDS ORDERED: PT OWN MED DRAWER 7, Y5N ONE ×3 (09:16→20:36)
--- NOTE | 2018-02-23 09:34 | CON.ORTH ---
Consult Reason for Consultation:: left knee pain - Past Medical History Cardio/Vascular: Yes: AFIB, HTN, Mitral Insufficiency (Mitral/Tricupsid Regurgitation), Other (Afib) Pulmonary: Yes: Asthma, COPD Musculoskeletal: Yes: Osteoarthritis Endocrine: Yes: Hypothyroidism (previously on synthroid, but this has now been stopped.). 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 [employer] History of Recent Travel: No Home Medications - Allergies Allergies/Adverse Reactions: Allergies Allergy/AdvReac Type Severity Reaction Status Date / Time budesonide [From Symbicort] Allergy Severe Verified 11/28/17 01:42 formoterol fumarate Allergy Severe Verified 11/28/17 01:42 [From Symbicort] moxifloxacin HCl Allergy Intermediate Verified 11/28/17 01:42 [From Avelox] Penicillins Allergy Mild Hives Verified 11/28/17 01:42 - Home Medications Home Medications: Ambulatory Orders Atorvastatin Ca [Lipitor] 10 mg PO HS 01/07/16 Diltiazem Cd [Cardizem Cd -] 180 mg PO DAILY 01/07/16 Montelukast Na [Singulair -] 10 mg PO HS 01/07/16 Rivaroxaban [Xarelto] 20 mg PO HS 01/07/16 Colchicine 0.6 mg PO PRN 07/11/16 Levothyroxine [Synthroid -] 125 mcg PO DAILY 06/17/17 Acetaminophen [Tylenol] 650 mg PO Q4HWA PRN 07/26/17 Calcium 250Mg/Vit-D 125 Units [Oscal 250 mg+D -] 1 tab PO DAILY 07/26/17 Dextran 70/Hypromellose/Pf [Tears Naturale Free Drops] 1 drop OD QID 07/26/17 Pantoprazole Sodium [Protonix] 40 mg PO DAILY 02/22/18 Family Disease History - Family Disease History Family Disease History: Diabetes: Brother (asthma), Heart Disease: Father ( unspecified heart disease but reportedly of a 'heart attack'), Mother ( of an NV), Respiratory: Brother, Sister (lung cancer, asthma/COPD), Other: Sister Physical Exam for Ortho Vital Signs: Vital Signs Temperature 98.3 F 02/23/18 06:00 Pulse Rate 73 02/23/18 06:00 Respiratory Rate 18 02/23/18 06:00 Blood Pressure 121/56 02/23/18 06:00 O2 Sat by Pulse Oximetry (%) 98 02/23/18 00:15 Labs: CBC, BMP 02/23/18 06:30 02/23/18 06:30 INR, PTT INR 1.13 (0.82-1.09) 02/23/18 06:30 - Lower Extremity Knee: Yes: Left, Ecchymosis, Hematoma, Pain, Swelling, Tenderness, Other (+ hematoma, + ttp, rom 0-90, calf soft, nt,nvi) Imaging - Results X-ray: Report Reviewed, Image Reviewed Assessment/Plan 82 year old f with pmh of COPD, HTN, AFIB (on Xarelto), CVA hyperlipidemia, hypothyroidism, aortic stenosis, GI bleeding (Dec 2017), OA, recurrent UTI's, presented to the ED w/ daughter because of left face and knee swelling and bruising after 2 episodes of falling this week. Patients daughter says the first fall occurred 6 days ago after patient tried bending down to pick something up. She hit her left knee which caused some swelling and bruising. She says the knee became worse after falling the second time on her knee. She noticed it became more swollen and bruised. Patient complains of pain on her left knee with pain on the left side of face. Patent denies losing consciousness both times. Patient saw Dr. Lewis after first fall and says no fracture or injury was found during that time. The daughter says she held her Xarelto yesterday after the fall. Patients daughter also states that patient has history of postural hypotension and tends to have a history of falling. a/p- left knee contusion, djd (on Xarelto) PT eval wbat ice to left knee 15 min q 2h elevation ok to d/c from ortho pov d/w Dr. Lewis
[2018-02-23] MEDS: PANTOPRAZOLE 40 MG TABLET (FP) PO SCH (09:42)
[2018-02-23] MEDS: CALCIUM 250MG/VIT-D 125 UNITS 1 COMBO TABLET PO SCH (09:42)
[2018-02-23] MEDS: ARTIFICIAL TEARS (POLYVINYL ALCOHOL 1.4%) OPTH DROPS OD SCH ×4 (12:44→21:16)
--- NOTE | 2018-02-23 13:14 | CONSULT ---
Consult Consult Specialty:: Nephrology Reason for Consultation:: hyponatremia and SHARON - History of Present Illness Chief Complaint: s/p fall History of Present Illness: Pt is an 82 year old female with pmhx of COPD, HTN, a-fib on xarelto, CVA, chol , hypothyroid and arthritis who presents to the ER after a fall. She has had 2 falls over the last week. She complains of left leg and of left facial swelling. She was found to have elevated creatinine and was found to be hyponatremic. She denies excess water intake. She denies nsaid use. She denies dysuria or hematuria. She denies history of CKD. - History Source History Provided By: Patient, Family Member - Past Medical History Cardio/Vascular: Yes: AFIB, HTN, Mitral Insufficiency (Mitral/Tricupsid Regurgitation), Other (Afib) Pulmonary: Yes: Asthma, COPD Musculoskeletal: Yes: Osteoarthritis Endocrine: Yes: Hypothyroidism (previously on synthroid, but this has now been stopped.) - Past Surgical History Past Surgical History: Yes: Appendectomy ('Many years ago') - Alcohol/Substance Use Hx Alcohol Use: No History of Substance Use: reports: None - Smoking History Smoking history: Never smoked Have you smoked in the past 12 months: No Aproximately how many cigarettes per day: 0 - Social History Usual Living Arrangement: Other (lives with sister) ADL: Independent 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 [employer] History of Recent Travel: No Home Medications - Allergies Allergies/Adverse Reactions: Allergies Allergy/AdvReac Type Severity Reaction Status Date / Time budesonide [From Symbicort] Allergy Severe Verified 11/28/17 01:42 formoterol fumarate Allergy Severe Verified 11/28/17 01:42 [From Symbicort] moxifloxacin HCl Allergy Intermediate Verified 11/28/17 01:42 [From Avelox] Penicillins Allergy Mild Hives Verified 11/28/17 01:42 - Home Medications Home Medications: Ambulatory Orders Atorvastatin Ca [Lipitor] 10 mg PO HS 01/07/16 Diltiazem Cd [Cardizem Cd -] 180 mg PO DAILY 01/07/16 Montelukast Na [Singulair -] 10 mg PO HS 01/07/16 Rivaroxaban [Xarelto] 20 mg PO HS 01/07/16 Colchicine 0.6 mg PO PRN 07/11/16 Levothyroxine [Synthroid -] 125 mcg PO DAILY 06/17/17 Acetaminophen [Tylenol] 650 mg PO Q4HWA PRN 07/26/17 Calcium 250Mg/Vit-D 125 Units [Oscal 250 mg+D -] 1 tab PO DAILY 07/26/17 Dextran 70/Hypromellose/Pf [Tears Naturale Free Drops] 1 drop OD QID 07/26/17 Pantoprazole Sodium [Protonix] 40 mg PO DAILY 02/22/18 Family Disease History - Family Disease History Family Disease History: Diabetes: Brother (asthma), Heart Disease: Father ( unspecified heart disease but reportedly of a 'heart attack'), Mother ( of an [place]), Respiratory: Brother, Sister (lung cancer, asthma/COPD), Other: Sister Review of Systems - Review of Systems Constitutional: reports: Malaise Eyes: reports: No Symptoms HENT: reports: No Symptoms Neck: reports: No Symptoms Cardiovascular: reports: No Symptoms Respiratory: reports: No Symptoms Gastrointestinal: reports: No Symptoms Genitourinary: reports: No Symptoms Musculoskeletal: reports: Joint Pain, Joint Swelling Neurological: reports: No Symptoms Hematology/Lymphatic: reports: No Symptoms Psychiatric: reports: No Symptoms Physical Exam Vital Signs: Vital Signs Temperature 98.8 F 02/23/18 10:00 Pulse Rate 88 02/23/18 10:00 Respiratory Rate 18 02/23/18 10:00 Blood Pressure 108/50 02/23/18 10:00 O2 Sat by Pulse Oximetry (%) 97 02/23/18 09:00 Constitutional: Yes: Calm Eyes: Yes: Conjunctiva Clear HENT: Yes: Other Cardiovascular: Yes: S1, S2 Respiratory: Yes: CTA Bilaterally Gastrointestinal: Yes: Soft Renal/: Yes: WNL Musculoskeletal: Yes: Other (knee pain and swelling) Edema: No Neurological: Yes: Oriented Psychiatric: Yes: Oriented Labs: CBC, BMP 02/23/18 06:30 02/23/18 06:30 Laboratory Tests 12/11/15 12/13/15 07/11/16 06:00 07:40 20:23 WBC Hgb Plt Count PT with INR INR Sodium Potassium BUN Creatinine 0.8 0.9 1.1 H D Urine Protein Urine Blood Urine Osmolality Ur Random Sodium 02/23/17 07/26/17 11/28/17 11:52 17:40 05:19 WBC Hgb Plt Count PT with INR INR Sodium Potassium BUN Creatinine 1.3 H 1.1 H 1.1 H Urine Protein Urine Blood Urine Osmolality Ur Random Sodium 02/22/18 02/22/18 02/22/18 15:50 15:50 17:52 WBC 10.6 H Hgb 9.8 L D Plt Count 275 PT with INR INR Sodium Potassium BUN Creatinine 1.4 H Urine Protein Negative Urine Blood Negative Urine Osmolality Ur Random Sodium 02/22/18 02/22/18 02/22/18 22:45 22:45 22:45 WBC Hgb Plt Count PT with INR INR Sodium 131 L Potassium BUN Creatinine 1.4 H Urine Protein Urine Blood Urine Osmolality 234 L Ur Random Sodium 58 02/23/18 02/23/18 02/23/18 06:30 06:30 06:30 WBC 10.7 H Hgb 10.1 L Plt Count 289 PT with INR 12.80 H INR 1.13 Sodium 134 L Potassium 4.5 BUN 32 H Creatinine 1.1 H Urine Protein Urine Blood Urine Osmolality Ur Random Sodium Imaging - Results Chest X-ray: Report Reviewed Problem List - Problems (1) Frequent falls Code(s): R29.6 - REPEATED FALLS (2) Hyponatremia Code(s): E87.1 - HYPO-OSMOLALITY AND HYPONATREMIA (3) SHARON (acute kidney injury) Code(s): N17.9 - ACUTE KIDNEY FAILURE, UNSPECIFIED (4) Asthma Code(s): J45.909 - UNSPECIFIED ASTHMA, UNCOMPLICATED (5) Atrial fibrillation Code(s): I48.91 - UNSPECIFIED ATRIAL FIBRILLATION (6) CHF (congestive heart failure) Code(s): I50.9 - HEART FAILURE, UNSPECIFIED (7) COPD (chronic obstructive pulmonary disease) Code(s): J44.9 - CHRONIC OBSTRUCTIVE PULMONARY DISEASE, UNSPECIFIED (8) Gout Code(s): M10.9 - GOUT, UNSPECIFIED (9) Hypothyroidism Code(s): E03.9 - HYPOTHYROIDISM, UNSPECIFIED Assessment/Plan Current Medications Generic Name Dose Route Start Last Admin Trade Name Freq PRN Reason Stop Dose Admin Artificial Tears 1 drop 02/23/18 10:00 02/23/18 12:44 Artificial Tears OD 1 drop QID JULIO CESAR Administration Atorvastatin Calcium 10 mg 02/23/18 22:00 Lipitor - PO HS JULIO CESAR Calcium/Vitamin D 1 tab 02/23/18 10:00 02/23/18 09:42 Oscal 250 Mg+D - PO 1 tab DAILY JULIO CESAR Administration Diltiazem HCl 180 mg 02/23/18 10:00 02/23/18 09:42 Cardizem Cd - PO 180 mg DAILY JULIO CESAR Administration Clindamycin Phosphate 300 mg in 50 mls @ 100 mls/hr 02/22/18 22:30 02/23/18 09:43 Cleocin 300 Mg Premix Ivpb IVPB 100 mls/hr Q8H-IV JULIO CESAR Administration Protocol Levothyroxine Sodium 125 mcg 02/23/18 07:00 02/23/18 06:16 Synthroid - PO 125 mcg 0700 JULIO CESAR Administration Pantoprazole Sodium 40 mg 02/23/18 10:00 02/23/18 09:42 Protonix - PO 40 mg DAILY JULIO CESAR Administration Laboratory Tests 02/22/18 02/22/18 22:45 22:45 Serum Osmolality 283 Urine Osmolality 234 L Impression 1. SHARON 2. hyponatremia 3. s/p fall 4. a-fib 5. hx CVA 6. HTN 7. hypothyroidism 8. asthma 9. HLD Plan - renal function is improving - repeat labs in am - plasma sodium is improving - urine osm is lower than plasma - repeat labs in am - sodium is near normal - encourage PO intake - will follow Dr Sandoval
[2018-02-23] MEDS: ACETAMINOPHEN 325 MG TABLET (FP) PO PRN ×2 (14:43→18:45)
--- NOTE | 2018-02-23 15:27 | PN ---
Progress Note (short form) - Note Progress Note: Chart reviewed case discussed with daughter who is RN Patient able to provide some hx from admission : The patient is a 82 year old female with past medical history of COPD, HTN, AFIB (on Xarelto), CVA hyperlipidemia, hypothyroidism, aortic stenosis, GI bleeding (Dec 2017) and osteoarthritis presents to the emergency department accompanied by her daughter complaining of left leg/facial swelling and pain after 2 falls this past week. The daughter states that 6 days ago, the patient bent over to pick something up and fell and hit her left knee. +HS, no LOC. The daughter reports going to Dr. Lewis who reportedly did X-rays that were negative and suggested ice packs for the knee and eye. The patient sustained another fall in the shower yesterday at which point she hit her L knee again and also hit the left side of her head. No LOC. Daughter brought her in today as the swelling in her leg is worse. The daughter reports previous cases of episodes where the patient would become hypotensive and imbalanced and fall. Pt does not remember any prodrome to the falls, nor can she give a good history to how she fell both times. Denies headache, dizziness, no loss of vision, or blurred vision. Denies any cough SOB, chest pain, nausea and vomiting. Denies fever, chills, nausea, vomit, diarrhea and constipation. Denies dysuria, frequency, urgency and hematuria. PCP: Dr. Kleber Barragan Patient seen and examined in bed large racoon left eye and swollen tender and large hematoma left knee Vital Signs Period Temp Pulse Resp BP Sys/Peck Pulse Ox Last 24 Hr 98.0 F-98.8 F 68-88 -18 108-157/50-80 97-99 neck supple heart S1/S2reg lungs clear bilat abd soft nontender ext - as above Laboratory Last Values WBC 10.7 K/mm3 (4.0-10.0) H 02/23/18 06:30 RBC 3.10 M/mm3 (3.60-5.2) L 02/23/18 06:30 Hgb 10.1 GM/dL (10.7-15.3) L 02/23/18 06:30 Hct 30.4 % (32.4-45.2) L 02/23/18 06:30 MCV 98.0 fl (80-96) H 02/23/18 06:30 MCH 32.5 pg (25.7-33.7) 02/23/18 06:30 MCHC 33.1 g/dl (32.0-36.0) 02/23/18 06:30 RDW 17.2 % (11.6-15.6) H 02/23/18 06:30 Plt Count 289 K/MM3 (134-434) 02/23/18 06:30 MPV 7.3 fl (7.5-11.1) L 02/23/18 06:30 Neutrophils % 57.9 % (42.8-82.8) 02/23/18 06:30 Lymphocytes % 29.9 % (8-40) 02/23/18 06:30 Monocytes % 9.2 % (3.8-10.2) 02/23/18 06:30 Eosinophils % 2.6 % (0-4.5) 02/23/18 06:30 Basophils % 0.4 % (0-2.0) 02/23/18 06:30 ESR 53 mm/hr (0-30) H 02/23/18 06:30 PT with INR 12.80 SEC (9.98-11.88) H 02/23/18 06:30 INR 1.13 (0.82-1.09) 02/23/18 06:30 PTT (Actin FS) 29.4 SECONDS (26.9-34.4) 02/22/18 15:50 Sodium 134 mmol/L (136-145) L 02/23/18 06:30 Potassium 4.5 mmol/L (3.5-5.1) 02/23/18 06:30 Chloride 103 mmol/L (98-107) 02/23/18 06:30 Carbon Dioxide 23 mmol/L (21-32) 02/23/18 06:30 Anion Gap 8 (8-16) 02/23/18 06:30 BUN 32 mg/dL (7-18) H 02/23/18 06:30 Creatinine 1.1 mg/dL (0.55-1.02) H 02/23/18 06:30 Creat Clearance w eGFR 47.32 (>60) 02/23/18 06:30 Random Glucose 95 mg/dL (74-106) 02/23/18 06:30 Serum Osmolality 283 mosm/kg (278-305) 02/22/18 22:45 Calcium 8.9 mg/dL (8.5-10.1) 02/23/18 06:30 Magnesium 1.9 mg/dL (1.8-2.4) 02/22/18 15:50 Total Bilirubin 1.0 mg/dL (0.2-1.0) D 02/23/18 06:30 AST 21 U/L (15-37) 02/23/18 06:30 ALT 20 U/L (12-78) 02/23/18 06:30 Alkaline Phosphatase 83 U/L (45-117) 02/23/18 06:30 Troponin I < 0.02 ng/ml (0.00-0.05) 02/22/18 22:45 C-Reactive Protein 3.6 MG/DL (0.00-0.3) H 02/23/18 06:30 B-Natriuretic Peptide 956.86 pg/ml (5-450) H 02/22/18 22:45 Total Protein 7.3 g/dl (6.4-8.2) 02/23/18 06:30 Albumin 3.7 g/dl (3.4-5.0) 02/23/18 06:30 Vitamin B12 440 pg/ml (180-914) 02/23/18 06:30 Serum Folate 24 ng/ml (3.1-17.5) H 02/23/18 06:30 TSH 2.72 uIU/ml (0.358-3.74) 02/23/18 06:30 Urine Color Straw 02/22/18 17:52 Urine Appearance Clear 02/22/18 17:52 Urine pH 7.0 (5.0-8.0) 02/22/18 17:52 Ur Specific [place] 1.005 (1.001-1.035) 02/22/18 17:52 Urine Protein Negative (NEGATIVE) 02/22/18 17:52 Urine Glucose (UA) Negative (NEGATIVE) 02/22/18 17:52 Urine Ketones Negative (NEGATIVE) 02/22/18 17:52 Urine Blood Negative (NEGATIVE) 02/22/18 17:52 Urine Nitrite Negative (NEGATIVE) 02/22/18 17:52 Urine Bilirubin Negative (<2.0 mg/dL) 02/22/18 17:52 Urine Urobilinogen Negative mg/dL (0.2-1.0) 02/22/18 17:52 Ur Leukocyte Esterase 2+ (NEGATIVE) H 02/22/18 17:52 Urine WBC (Auto) 35 /hpf (3-5) 02/22/18 17:52 Urine RBC (Auto) <1 /hpf (0-3) 02/22/18 17:52 Ur Epithelial Cells Rare /HPF (FEW) 02/22/18 17:52 Urine Osmolality 234 mosm/kg (300-900) L 02/22/18 22:45 Ur Random Sodium 58 MMOL/L 02/22/18 22:45 Ur Random Potassium 9.2 MMOL/L 02/22/18 22:45 Ur Random Chloride 50 MMOL/L 02/22/18 22:45 Urine Creatinine < 13.0 mg/dL (20-320) L 02/22/18 22:45 Blood Type A POSITIVE 02/22/18 18:37 Antibody Screen Negative 02/22/18 18:37 Active Medications Acetaminophen (Tylenol -) 650 mg PO Q4H PRN PRN Reason: PAIN LEVEL 1-5 Last Admin: 02/23/18 14:43 Dose: 650 mg Artificial Tears (Artificial Tears) 1 drop OD QID [facility] Last Admin: 02/23/18 14:07 Dose: 1 drop Atorvastatin Calcium (Lipitor -) 10 mg PO [facility] Calcium/Vitamin D (Oscal 250 Mg+D -) 1 tab PO DAILY [facility] Last Admin: 02/23/18 09:42 Dose: 1 tab Diltiazem HCl (Cardizem Cd -) 180 mg PO DAILY [facility] Last Admin: 02/23/18 09:42 Dose: 180 mg Clindamycin Phosphate (Cleocin 300 Mg Premix Ivpb) 300 mg in 50 mls @ 100 mls/ hr IVPB Q8H-IV JULIO CESAR PRN Reason: Protocol Last Admin: 02/23/18 09:43 Dose: 100 mls/hr Levothyroxine Sodium (Synthroid -) 125 mcg PO 0700 [facility] Last Admin: 02/23/18 06:16 Dose: 125 mcg Pantoprazole Sodium (Protonix -) 40 mg PO DAILY [facility] Last Admin: 02/23/18 09:42 Dose: 40 mg Assmt /plan # mechanical fall large hematoma to left periorbital and left knee ortho consult one fall unwitnessed - she is unable to provide good hx Neurology consult Pt evaluation needs evaluation for safe ambulation # hyponatremia with SHARON Na increased since admission - she denies excess water intake will trend Na and Cr. Nephrology consult # HTN meds resume # A fib on Xarelto # hx of CVA HLD COPD Hypothyroid home meds resumed / TSH cked
--- NOTE | 2018-02-23 19:37 | CON.ID ---
Consult Consult Specialty:: Infectious Disease Referred by:: Dr. Gonzalez Reason for Consultation:: UTI - History of Present Illness Chief Complaint: Fall History of Present Illness: Pt is an 82 yr old female with Hx ILD, AFib on Xarelto was brought to the ED for increasing (L) knee swelling. She had a fall about 6-7 days ago, where she hit (L) knee. She was seen by , whose w/up was negative for Fx. She had again fallen a few days ago and hit her head. Condition worsened yesterday and she was admitted. Asked to evaluate pyuria. - History Source History Provided By: Patient, Family Member Limitations to Obtaining History: No Limitations - Past Medical History Cardio/Vascular: Yes: AFIB, HTN, Mitral Insufficiency (Mitral/Tricupsid Regurgitation), Other (Afib) Pulmonary: Yes: Asthma, COPD Musculoskeletal: Yes: Osteoarthritis Endocrine: Yes: Hypothyroidism (previously on synthroid, but this has now been stopped.) - Past Surgical History Past Surgical History: Yes: Appendectomy ('Many years ago') - Alcohol/Substance Use Hx Alcohol Use: No History of Substance Use: reports: None - Smoking History Smoking history: Never smoked Have you smoked in the past 12 months: No Aproximately how many cigarettes per day: 0 - Social History Usual Living Arrangement: Other (lives with sister) ADL: Independent 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 [employer] History of Recent Travel: No Home Medications - Allergies Allergies/Adverse Reactions: Allergies Allergy/AdvReac Type Severity Reaction Status Date / Time budesonide [From Symbicort] Allergy Severe Verified 11/28/17 01:42 formoterol fumarate Allergy Severe Verified 11/28/17 01:42 [From Symbicort] moxifloxacin HCl Allergy Intermediate Verified 11/28/17 01:42 [From Avelox] Penicillins Allergy Mild Hives Verified 11/28/17 01:42 - Home Medications Home Medications: Ambulatory Orders Atorvastatin Ca [Lipitor] 10 mg PO HS 01/07/16 Diltiazem Cd [Cardizem Cd -] 180 mg PO DAILY 01/07/16 Montelukast Na [Singulair -] 10 mg PO HS 01/07/16 Rivaroxaban [Xarelto] 20 mg PO HS 01/07/16 Colchicine 0.6 mg PO PRN 07/11/16 Levothyroxine [Synthroid -] 125 mcg PO DAILY 06/17/17 Acetaminophen [Tylenol] 650 mg PO Q4HWA PRN 07/26/17 Calcium 250Mg/Vit-D 125 Units [Oscal 250 mg+D -] 1 tab PO DAILY 07/26/17 Dextran 70/Hypromellose/Pf [Tears Naturale Free Drops] 1 drop OD QID 07/26/17 Pantoprazole Sodium [Protonix] 40 mg PO DAILY 02/22/18 Family Disease History - Family Disease History Family Disease History: Diabetes: Brother (asthma), Heart Disease: Father ( unspecified heart disease but reportedly of a 'heart attack'), Mother ( of an [place]), Respiratory: Brother, Sister (lung cancer, asthma/COPD), Other: Sister Review of Systems - Review of Systems Constitutional: denies: Chills, Fever Eyes: denies: No Symptoms HENT: denies: No Symptoms Musculoskeletal: reports: Extremity Pain, Joint Pain Integumentary: reports: Other (hematoma) Physical Exam Vital Signs: Vital Signs Temperature 98.2 F 02/23/18 18:15 Pulse Rate 73 02/23/18 18:15 Respiratory Rate 18 02/23/18 18:15 Blood Pressure 118/63 02/23/18 18:15 O2 Sat by Pulse Oximetry (%) 97 02/23/18 09:00 Constitutional: Yes: No Distress, Calm Eyes: Yes: Conjunctiva Clear HENT: Yes: Other (Swollen (L) periorbital area with hematoma) Neck: Yes: Supple Cardiovascular: Yes: Regular Rate and Rhythm Respiratory: Yes: Regular Gastrointestinal: Yes: Normal Bowel Sounds, Soft ...Rectal Exam: Yes: Deferred Musculoskeletal: Yes: Joint Swelling ((+) Hematoma (L) knee extending to thigh and calf) Labs: CBC, BMP 02/23/18 06:30 02/23/18 06:30 Assessment/Plan Pt is s/p fall with (L) orbital, (L) knee hematoma UTI Can DC Abx Await c/s.
[2018-02-23] MEDS ORDERED: ATORVASTATIN CA 10 MG TABLET (FP) PO SCH (22:00)
[2018-02-24] MEDS ORDERED: PT OWN MED DRAWER 7, Y5N ONE ×2 (06:18→08:35)
[2018-02-24] MEDS: LEVOTHYROXINE NA 125 MCG TABLET (FP) PO SCH (06:19)
[2018-02-24 07:10] LABS: ANION GAP 8 (8-16); BLOOD UREA NITROGEN 43 mg/dL (7-18); CALCIUM 8.7 mg/dL (8.5-10.1); CHLORIDE 106 mmol/L (98-107); CO2 22 mmol/L (21-32); CREATININE 1.1 mg/dL (0.55-1.02); GLUCOSE,RANDOM 96 mg/dL (74-106); POTASSIUM 4.4 mmol/L (3.5-5.1); SODIUM 136 mmol/L (136-145)
[2018-02-24] MEDS: PANTOPRAZOLE 40 MG TABLET (FP) PO SCH (09:02)
[2018-02-24] MEDS: CALCIUM 250MG/VIT-D 125 UNITS 1 COMBO TABLET PO SCH (09:02)
[2018-02-24] MEDS: ACETAMINOPHEN 325 MG TABLET (FP) PO PRN (09:03)
[2018-02-24] MEDS: ARTIFICIAL TEARS (POLYVINYL ALCOHOL 1.4%) OPTH DROPS OD SCH (09:04)
--- NOTE | 2018-02-24 11:31 | DS ---
Physical Examination Vital Signs: Vital Signs Temperature 97.5 F L 02/24/18 06:00 Pulse Rate 82 02/24/18 06:00 Respiratory Rate 20 02/24/18 06:00 Blood Pressure 150/84 02/24/18 06:00 O2 Sat by Pulse Oximetry (%) 97 02/23/18 09:00 Findings/Remarks: The patient is a 82 year old f with pmh of COPD, HTN, AFIB (on Xarelto), CVA, HLD, hypothyroidism, , GI bleeding (Dec 2017), OA, recurrent UTI's, presented to the ED w/ daughter because of left face and knee swelling and bruising after 2 episodes of falling this week. Patients daughter says the first fall occurred 6 days ago after patient tried bending down to pick something up. She hit her left knee which caused some swelling and bruising. She says the knee became worse after falling the second time on her knee. She noticed it became more swollen and bruised. Patient complains of pain on her left knee with pain on the left side of face. Patent denies losing consciousness both times. Patient saw Dr. Lewis after first fall and says no fracture or injury was found during that time. The daughter says she held her Xarelto yesterday after the fall. Patients daughter also states that patient has history of postural hypotension and tends to have a history of falling. She also mentions have chronic and recurrent UTI's w/ burning w/ urination. Denies headache, dizziness , vision loss, sob, chest pain, n/v, chills, fevers, and diarrhea. ER course was notable for: (1) Hyponatremia 128 Na (2) Knee/femur/hip/chest xray unemarkable for acute changes (3) LE venous duplex neg During hospital stay assessed by Ortho - and cleared for D/C. She was evaluated by PT, she was able to stand and ambulate "a few feet" as per family. She has assistance at home / and family support. Low Na she was evaluated by Nephrology, at time of D/C Na -136 and improved renal function Cr: 1.1 Case discussed with daughter - safety issues at home, fall prevention . She will be discharged home and services re instated. Constitutional: Yes: Well Nourished, No Distress, Calm Eyes: Yes: WNL, Conjunctiva Clear, EOM Intact, Other (racoon left eye) HENT: Yes: Normocephalic. No: Atraumatic Neck: Yes: Supple Cardiovascular: Yes: Regular Rate and Rhythm Respiratory: Yes: Regular, CTA Bilaterally Gastrointestinal: Yes: Normal Bowel Sounds ...Rectal Exam: Yes: Deferred Renal/: Yes: WNL Breast(s): Yes: WNL, Other (resolving hematome on left breast) Musculoskeletal: Yes: Joint Swelling (left knee / large hematoma / skin less tense than on admission) Extremities: Yes: Other (as above) Edema: No Peripheral Pulses WNL: Yes Integumentary: Yes: Bruising (left periorbital / left knee :proximal to upper thigh -- distal to ankle) Wound/Incision: Yes: Clean/Dry Neurological: Yes: Alert, Oriented, Pre-Existing Deficit Psychiatric: Yes: Alert, Oriented Labs: CBC, BMP 02/23/18 06:30 02/24/18 05:35 Discharge Summary Reason For Visit: 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 CURRENT USE OF Current Active Problems Blood thinned due to long-term anticoagulant use (Acute) Frequent falls (Acute) Head trauma (Acute) Hyponatremia (Acute) Condition: Fair - Instructions Referrals: Kleber Barragan MD [Primary Care Provider] - Disposition: HOME - Home Medications Comprehensive Discharge Medication List: Ambulatory Orders Atorvastatin Ca [Lipitor] 10 mg PO HS 01/07/16 Diltiazem Cd [Cardizem Cd -] 180 mg PO DAILY 01/07/16 Montelukast Na [Singulair -] 10 mg PO HS 01/07/16 Rivaroxaban [Xarelto] 20 mg PO HS 01/07/16 Colchicine 0.6 mg PO PRN 07/11/16 Levothyroxine [Synthroid -] 125 mcg PO DAILY 06/17/17 Acetaminophen [Tylenol] 650 mg PO Q4HWA PRN 07/26/17 Calcium 250Mg/Vit-D 125 Units [Oscal 250 mg+D -] 1 tab PO DAILY 07/26/17 Dextran 70/Hypromellose/Pf [Tears Naturale Free Drops] 1 drop OD QID 07/26/17 Pantoprazole Sodium [Protonix] 40 mg PO DAILY 02/22/18
[2018-02-24 11:47] VITALS: BP 112/52; PULSE 72; TEMP 97.8
== END 2018-02-24 14:14 | disposition home or self-care (01) | DRG 683 ==
LOC: JER 14:15 → JERBED 20:04 → J4S 02-23 00:07
PROVIDERS: ADMIT Family Medicine; ATTEND Family Medicine
DX: N17.9 Acute kidney failure, unspecified (principal); E87.1 Hypo-osmolality and hyponatremia; L03.116 Cellulitis of left lower limb; N39.0 Urinary tract infection, site not specified; S80.02XA Contusion of left knee, initial encounter; J44.9 Chronic obstructive pulmonary disease, unspecified; I48.91 Unspecified atrial fibrillation; Z79.01 Long term (current) use of anticoagulants; E78.5 Hyperlipidemia, unspecified; E03.9 Hypothyroidism, unspecified; Z86.73 Personal history of transient ischemic attack (TIA), and cerebral infarction without residual deficits; I35.0 Nonrheumatic aortic (valve) stenosis; M19.90 Unspecified osteoarthritis, unspecified site; Z88.0 Allergy status to penicillin; M10.9 Gout, unspecified; I34.0 Nonrheumatic mitral (valve) insufficiency; I36.1 Nonrheumatic tricuspid (valve) insufficiency; R29.6 Repeated falls; R07.81 Pleurodynia; Z87.440 Personal history of urinary (tract) infections; Y99.8 Other external cause status; I11.0 Hypertensive heart disease with heart failure; I50.9 Heart failure, unspecified; W18.09XA Striking against other object with subsequent fall, initial encounter; Y93.E1 Activity, personal bathing and showering; Y92.091 Bathroom in other non-institutional residence as the place of occurrence of the external cause
CPT/HCPCS: 36415; 70450-TC; 70486-TC; 71045-TC-FY; 71101-TC-FY; 72125-TC; 72170-TC-FY; 73552-TC-LT-FY; 73562-TC-LT-FY; 73706-TC-RT; 76775-TC; 76856-TC; 80048; 80053; 81003; 81015; 82436; 82550; 82570; 82607; 82746; 83735; 83880; 83930; 83935; 84133; 84300; 84443; 84484; 85025; 85610; 85651; 85730; 86140; 86850; 86900; 86901; 87086; 87186; 93005; 93010; 93971-TC; 97116-GP; 97161-GP; 99285-25; J7030

== ENCOUNTER 2018-10-13 05:12 | Inpatient (IN) | payer OTHER ==
[2018-10-13] MEDS ORDERED: SODIUM CHLORIDE 2,177 ML IV ONE (05:23)
--- NOTE | 2018-10-13 05:23 | PDOC ---
History of Present Illness - General Chief Complaint: SIRS, Suspected/Possible Stated Complaint: FEVER Time Seen by Provider: 10/13/18 05:23 History Source: Patient, Care Provider (daughter is the historian) - History of Present Illness Initial Comments: 10/13/18 05:29 83 year old female With past medical history of hypertension, pneumonia, CHF, COPD, asthma, cataract surgery, gout, appendectomy, hypothyroidism, stroke, hyperlipidemia, arthritis, A. fib, MVR, glaucoma, GI bleed brought in by ambulance from home complaining of difficulty breathing, wheezing and low-grade temps at home times one day. Patient also has been complaining of left flank pain and suprapubic pain. Patient is noted to be tachycardic and febrile in the emergency room. Denies headache, chest pain, dizziness, diaphoresis, altered mental status. Dr. moore Past History - Past Medical History Allergies/Adverse Reactions: Allergies Allergy/AdvReac Type Severity Reaction Status Date / Time budesonide [From Symbicort] Allergy Severe Verified 10/13/18 05:16 formoterol fumarate Allergy Severe Verified 10/13/18 05:16 [From Symbicort] moxifloxacin HCl Allergy Intermediate Verified 10/13/18 05:16 [From Avelox] Penicillins Allergy Mild Hives Verified 10/13/18 05:16 Home Medications: Ambulatory Orders Atorvastatin Ca [Lipitor] 10 mg PO HS 01/07/16 Diltiazem Cd [Cardizem Cd -] 120 mg PO DAILY 01/07/16 Colchicine 0.6 mg PO PRN 07/11/16 Levothyroxine [Synthroid -] 125 mcg PO DAILY 06/17/17 Acetaminophen [Tylenol] 650 mg PO Q4HWA PRN 07/26/17 Calcium 250Mg/Vit-D 125 Units [Oscal 250 mg+D -] 1 tab PO DAILY 07/26/17 Dextran 70/Hypromellose/Pf [Tears Naturale Free Drops] 1 drop OD QID 07/26/17 Acetaminophen [Tylenol .Regular Strength -] 650 mg PO Q4H PRN tablet 02/24/18 Allopurinol [Zyloprim -] 100 mg PO DAILY 10/13/18 Apixaban [Eliquis] 2.5 mg PO BID 10/13/18 Baclofen 10 mg PO DAILY PRN 10/13/18 Calcium 250Mg/Vit-D 125 Units [Oscal 250 mg+D -] 1 tab PO DAILY 10/13/18 Colchicine 0.6 mg PO DAILY PRN 10/13/18 Fluticasone/Salmeterol [Advair Hfa 115-21 Mcg Inhaler] 2 puff IN QID PRN Meclizine HCl 12.5 mg PO DAILY PRN 10/13/18 Montelukast Sodium [Singulair] 10 mg PO DAILY 10/13/18 Spironolact/Hydrochlorothiazid [Spironolactone-Hctz 25-25 Tab] 1 each PO DAILY 10/13/18 Anemia: No Asthma: Yes Cancer: No Cardiac Disorders: Yes (A.FIB) CVA: Yes (no residual deficet) COPD: Yes CHF: No Dementia: No Diabetes: No GI Disorders: No Disorders: No HTN: Yes Hypercholesterolemia: Yes Liver Disease: No Seizures: No Thyroid Disease: Yes (HYPO) - Surgical History Abdominal Surgery: Yes Appendectomy: Yes Cardiac Surgery: No Cholecystectomy: No Lung Surgery: No Neurologic Surgery: Yes (right eye) Orthopedic Surgery: Yes (R ARTHROSCOPY knee) - Suicide/Smoking/Psychosocial Hx Smoking Status: No Smoking History: Never smoked Have you smoked in the past 12 months: No Number of Cigarettes Smoked Daily: 0 Information on smoking cessation initiated: No Hx Alcohol Use: No Drug/Substance Use Hx: No Substance Use Type: None Hx Substance Use Treatment: No Review of Systems - Review of Systems Able to Perform ROS?: Yes Is the patient limited Tajik proficient: No Constitutional: Yes: Chills, Fever Respiratory: Yes: Cough, SOB at Rest, Wheezing Cardiac (ROS): No: Symptoms Reported, See HPI, Chest Pain, Edema, Irregular Heart Rate, Lightheadedness, Palpitations, Syncope, Chest Tightness, Other ABD/GI: Yes: Abdominal cramping : Yes: Flank Pain *Physical Exam - Vital Signs Last Vital Signs Temp Pulse Resp BP Pulse Ox 102.6 F H 125 H 16 135/58 L 92 L 10/13/18 05:16 10/13/18 05:16 10/13/18 05:16 10/13/18 05:16 10/13/18 05:16 - Physical Exam General Appearance: Yes: Appropriately Dressed Respiratory/Chest: positive: Accessory Muscle Use, Rapid RR, Rales Cardiovascular: positive: Tachycardia Gastrointestinal/Abdominal: positive: Normal Bowel Sounds, Tender (suprapubic), Soft Musculoskeletal: positive: Normal Inspection Extremity: positive: Normal Capillary Refill, Normal Inspection, Normal Range of Motion Integumentary: positive: Dry, Warm Neurologic: positive: Alert Moderate Sedation - Procedure Monitoring Vital Signs: Procedure Monitoring Vital Signs Temperature 102.6 F H 10/13/18 05:16 Pulse Rate 125 H 10/13/18 05:16 Respiratory Rate 16 10/13/18 05:16 Blood Pressure 135/58 L 10/13/18 05:16 O2 Sat by Pulse Oximetry (%) 92 L 10/13/18 05:16 ED Treatment Course - LABORATORY CBC & Chemistry Diagram: 10/19/18 06:45 10/19/18 06:45 Progress Note - Progress Note Progress Note: A: sepsis workup P: labs EKG chest xray Medical Decision Making - Medical Decision Making 10/13/18 06:45 patient to be admitted. pending labs. patient signed out antonette PUENTE *DC/Admit/Observation/Transfer Diagnosis at time of Disposition: Complicated UTI (urinary tract infection), Left flank pain Sepsis Qualifiers: Sepsis type: sepsis due to unspecified organism Qualified Code(s): A41.9 - Sepsis, unspecified organism - Referrals - Patient Instructions - Post Discharge Activity
[2018-10-13] MEDS ORDERED: ACETAMINOPHEN 325 MG TABLET (FP) PO ONE (05:25)
[2018-10-13] MEDS ORDERED: ALBUTEROL SO4 2.5/IPRATROPIUM 0.5 INH SOL 3 ML VIAL.NEB. NEB ONE ×3 (05:27→10:35)
[2018-10-13] MEDS ORDERED: ACETAMINOPHEN 325 MG TABLET (FP) ONE (05:30)
[2018-10-13 06:32] LABS: VENOUS PC02 33.7 mmHg (38-52); VENOUS PH 7.41 (7.32-7.42); VENOUS PO2 41.7 mmHg (28-48)
[2018-10-13 06:33] LABS: BASO % 0.2 % (0-2.0); EOS % 0.1 % (0-4.5); HEMATOCRIT 37.1 % (32.4-45.2); HEMOGLOBIN 11.8 GM/dL (10.7-15.3); LYMPH % 6.6 % (8-40); MCH 33.8 pg (25.7-33.7); MCHC 31.8 g/dl (32.0-36.0); MEAN CELL VOLUME 106.3 fl (80-96); MEAN PLT VOLUME 7.7 fl (7.5-11.1); MONO % 4.9 % (3.8-10.2); NEUT % 88.2 % (42.8-82.8); PLATELET COUNT 204 K/MM3 (134-434); RBC 3.49 M/mm3 (3.60-5.2); RDW 14.1 % (11.6-15.6); WHITE BLOOD COUNT 16.3 K/mm3 (4.0-10.0)
[2018-10-13 06:43] LABS: INR 1.65 (0.83-1.09); PROTHROMBIN TIME (PATIENT) 19.6 SEC (9.7-13.0)
[2018-10-13 06:46] LABS: ACTIVATED PTT 32.9 SECONDS (25.2-36.5)
[2018-10-13 06:55] LABS: ALBUMIN 3.5 g/dl (3.4-5.0); ALK PHOS 82 U/L (45-117); ANION GAP 12 MMOL/L (8-16); BILIRUBIN,TOTAL 1.4 mg/dL (0.2-1); BLOOD UREA NITROGEN 32 mg/dL (7-18); CALCIUM 8.8 mg/dL (8.5-10.1); CHLORIDE 101 mmol/L (98-107); CO2 22 mmol/L (21-32); CREATININE 1.6 mg/dL (0.55-1.3); GLUCOSE,RANDOM 128 mg/dL (74-106); SGOT/AST 18 U/L (15-37); SGPT/ALT 22 U/L (13-61); SODIUM 135 mmol/L (136-145); TOT PROT 7.3 g/dl (6.4-8.2)
[2018-10-13 07:16] LABS: URINE APPEARANCE CLOUDY; URINE BILIRUBIN NEGATIVE (<2.0 mg/dL); URINE COLOR YELLOW; URINE GLUCOSE (UA) NEGATIVE (NEGATIVE); URINE KETONE NEGATIVE (NEGATIVE); URINE LEUK ESTERASE 3+ (NEGATIVE); URINE NITRITE POSITIVE (NEGATIVE); URINE PROTEIN 2+ (NEGATIVE); URINE UROBILINOGEN NEGATIVE mg/dL (0.2-1.0)
[2018-10-13] MEDS ORDERED: CEFTRIAXONE 1 GM in DEXTROSE 5%-WATER - 50 ML IVPB ONE (07:21)
[2018-10-13 07:33] LABS: EPI CELLS RARE /HPF (FEW); URINE BACTERIA FEW /hpf (NONE SEEN); URINE MUCUS RARE
--- NOTE | 2018-10-13 07:56 | PDOC ---
*Physical Exam - Vital Signs Last Vital Signs Temp Pulse Resp BP Pulse Ox 102.6 F H 125 H 16 135/58 L 92 L 10/13/18 05:16 10/13/18 05:16 10/13/18 05:16 10/13/18 05:16 10/13/18 05:16 ED Treatment Course - LABORATORY CBC & Chemistry Diagram: 10/13/18 06:05 10/13/18 06:05 - ADDITIONAL ORDERS Additional order review: Laboratory Results 10/13/18 10/13/18 10/13/18 06:05 06:05 06:05 WBC RBC Hgb Hct MCV MCH MCHC RDW Plt Count MPV Absolute Neuts (auto) Neutrophils % Lymphocytes % Monocytes % Eosinophils % Basophils % Nucleated RBC % PT with INR INR PTT (Actin FS) VBG pH POC VBG pCO2 POC VBG pO2 Mixed VBG HCO3 Sodium Potassium Chloride Carbon Dioxide Anion Gap BUN Creatinine Creat Clearance w eGFR Random Glucose Lactic Acid 3.9 H* Calcium Total Bilirubin AST ALT Alkaline Phosphatase Troponin I < 0.02 Total Protein Albumin Urine Color Urine Appearance Urine pH Ur Specific [place] Urine Protein Urine Glucose (UA) Urine Ketones Urine Blood Urine Nitrite Urine Bilirubin Urine Urobilinogen Ur Leukocyte Esterase Urine WBC (Auto) Urine RBC (Auto) Ur Epithelial Cells Urine Bacteria Urine Mucus Influenza A (Rapid) Negative Influenza B (Rapid) Negative 10/13/18 10/13/18 10/13/18 06:05 06:05 06:05 WBC 16.3 H RBC 3.49 L Hgb 11.8 Hct 37.1 D MCV 106.3 H MCH 33.8 H MCHC 31.8 L RDW 14.1 D Plt Count 204 D MPV 7.7 Absolute Neuts (auto) 14.4 H Neutrophils % 88.2 H D Lymphocytes % 6.6 L D Monocytes % 4.9 Eosinophils % 0.1 D Basophils % 0.2 Nucleated RBC % 0 PT with INR 19.60 H INR 1.65 H PTT (Actin FS) 32.9 VBG pH POC VBG pCO2 POC VBG pO2 Mixed VBG HCO3 Sodium 135 L Potassium 4.0 Chloride 101 Carbon Dioxide 22 Anion Gap 12 BUN 32 H Creatinine 1.6 H Creat Clearance w eGFR 30.63 Random Glucose 128 H Lactic Acid Calcium 8.8 Total Bilirubin 1.4 H AST 18 ALT 22 Alkaline Phosphatase 82 Troponin I Total Protein 7.3 Albumin 3.5 Urine Color Urine Appearance Urine pH Ur Specific [place] Urine Protein Urine Glucose (UA) Urine Ketones Urine Blood Urine Nitrite Urine Bilirubin Urine Urobilinogen Ur Leukocyte Esterase Urine WBC (Auto) Urine RBC (Auto) Ur Epithelial Cells Urine Bacteria Urine Mucus Influenza A (Rapid) Influenza B (Rapid) 10/13/18 10/13/18 05:24 05:24 WBC RBC Hgb Hct MCV MCH MCHC RDW Plt Count MPV Absolute Neuts (auto) Neutrophils % Lymphocytes % Monocytes % Eosinophils % Basophils % Nucleated RBC % PT with INR INR PTT (Actin FS) VBG pH 7.41 POC VBG pCO2 33.7 L POC VBG pO2 41.7 Mixed VBG HCO3 20.8 Sodium Potassium Chloride Carbon Dioxide Anion Gap BUN Creatinine Creat Clearance w eGFR Random Glucose Lactic Acid Calcium Total Bilirubin AST ALT Alkaline Phosphatase Troponin I Total Protein Albumin Urine Color Yellow Urine Appearance Cloudy Urine pH 6.0 Ur Specific [place] 1.012 Urine Protein 2+ H Urine Glucose (UA) Negative Urine Ketones Negative Urine Blood 2+ H Urine Nitrite Positive Urine Bilirubin Negative Urine Urobilinogen Negative Ur Leukocyte Esterase 3+ H Urine WBC (Auto) 304 Urine RBC (Auto) 4 Ur Epithelial Cells Rare Urine Bacteria Few Urine Mucus Rare Influenza A (Rapid) Influenza B (Rapid) 10/13/18 06:05 RBC 3.49 L MCV 106.3 H MCHC 31.8 L RDW 14.1 D MPV 7.7 Neutrophils % 88.2 H D Lymphocytes % 6.6 L D Monocytes % 4.9 Eosinophils % 0.1 D Basophils % 0.2 - Medications Given in the ED: ED Medications Discontinued Medications Generic Name Dose Route Start Last Admin Trade Name Trinh PRN Reason Stop Dose Admin Acetaminophen 650 mg 10/13/18 05:25 10/13/18 06:20 Tylenol - PO 10/13/18 05:26 650 mg ONCE ONE Administration Albuterol/Ipratropium 1 amp 10/13/18 05:27 10/13/18 06:20 Duoneb - NEB 10/13/18 05:28 1 amp ONCE ONE Administration Sodium Chloride 2,177 mls @ 1,088.5 mls/hr 10/13/18 05:23 10/13/18 06:42 Normal Saline - 30 ml/kg infuse over 2 hr (2177 ml) 10/13/18 07:22 1,088.5 mls/hr IV Administration ONCE ONE Medical Decision Making - Medical Decision Making 10/13/18 07:56 Patient received in signout from an Moriah Woody. Patient here with fever, chills, and left flank pain. Patient's urine positive for UTI. Patient's lactic acid 3.9. Elevated white count of 16. Patient added for BNP secondary history of CHF. Chest x-ray shows large heart unfolded aorta with new atelectasis the right base. Case discussed with Dr. Gonzalez and will admit to [facility]. Patient ordered for levaquin based on previous positive micro-showing enterococcus Faecialis and tx for pyelo. Allergy to penicillin was numerous years ago which consisted of itching. Patient has received Zosyn and ceftriaxone in the past 2 years 10/13/18 08:03 Laboratory Tests 02/22/18 10/13/18 10/13/18 22:45 05:24 05:24 WBC Hgb Hct Neutrophils % PT with INR INR POC VBG pCO2 33.7 L Sodium BUN 36 H Creatinine 1.4 H Lactic Acid Total Bilirubin Troponin I B-Natriuretic Peptide Urine Protein 2+ H Urine Blood 2+ H Urine Nitrite Positive Urine Urobilinogen Negative Urine WBC (Auto) 304 Urine RBC (Auto) 4 Influenza A (Rapid) Influenza B (Rapid) 10/13/18 10/13/18 10/13/18 06:05 06:05 06:05 WBC 16.3 H Hgb 11.8 Hct 37.1 D Neutrophils % 88.2 H D PT with INR 19.60 H INR 1.65 H POC VBG pCO2 Sodium 135 L BUN 32 H Creatinine 1.6 H Lactic Acid Total Bilirubin 1.4 H Troponin I B-Natriuretic Peptide Urine Protein Urine Blood Urine Nitrite Urine Urobilinogen Urine WBC (Auto) Urine RBC (Auto) Influenza A (Rapid) Influenza B (Rapid) 10/13/18 10/13/18 10/13/18 06:05 06:05 06:05 WBC Hgb Hct Neutrophils % PT with INR INR POC VBG pCO2 Sodium BUN Creatinine Lactic Acid 3.9 H* Total Bilirubin Troponin I < 0.02 B-Natriuretic Peptide Pending Urine Protein Urine Blood Urine Nitrite Urine Urobilinogen Urine WBC (Auto) Urine RBC (Auto) Influenza A (Rapid) Negative Influenza B (Rapid) Negative Spiral CT ordered to r/o infected stone( lt flank pain and + blood in urine) 10/13/18 08:52 Laboratory Tests 10/13/18 06:05 B-Natriuretic Peptide 3193.1 H 10/13/18 10:32 CT shows small nonobstructing left renal stones and moderate right renal hydronephrosis and mild to moderate right brazer repair and salvage which stranding around the right renal lower pole as well as the proximal right ureter without gross evidence of an obstructing stone. Small nontracking left renal stones measuring up to 5 mm with moderate dilatation of the left renal pelvis likely an extrarenal pelvis. Cannot rule out left ureteropelvic junction narrowing/ stenosis. 10/13/18 12:09 Laboratory Tests 10/13/18 09:40 Lactic Acid 3.7 H* Pt ordered for an additional 250 mL of normal saline. Secondary to the morphine. Will ordered Zofran *DC/Admit/Observation/Transfer Diagnosis at time of Disposition: Complicated UTI (urinary tract infection), Left flank pain Sepsis Qualifiers: Sepsis type: sepsis due to unspecified organism Qualified Code(s): A41.9 - Sepsis, unspecified organism - Discharge Dispostion Decision to Admit order: Yes - Referrals - Patient Instructions - Post Discharge Activity
[2018-10-13 08:08] LABS: N-TERMINAL BNP 3193.1 pg/ml (5-450)
[2018-10-13 10:06] LABS: N-TERMINAL BNP 3171.5 pg/ml (5-450)
[2018-10-13] MEDS ORDERED: ACETAMINOPHEN 325 MG TABLET (FP) PO PRN (10:25)
--- NOTE | 2018-10-13 10:25 | HP ---
Admitting History and Physical - Admission History of Present Illness: 83 year old female With past medical history of hypertension, pneumonia, CHF, COPD, asthma, cataract surgery, gout, appendectomy, hypothyroidism, stroke, hyperlipidemia, arthritis, A. fib, MVR, glaucoma, GI bleed brought in by ambulance from home complaining of difficulty breathing, wheezing and low-grade temps at home times one day. Patient also has been complaining of left flank pain and suprapubic pain. Patient is noted to be tachycardic and febrile in the emergency room. Denies headache, chest pain, dizziness, diaphoresis, altered mental status. History Source: Family Member, Medical Record - Past Medical History Cardiovascular: Yes: AFIB, HTN, Mitral Insufficiency (Mitral/Tricupsid Regurgitation), Other (Afib) Pulmonary: Yes: Asthma, COPD Reproductive: Yes: Postmenopausal Musculoskeletal: Yes: Osteoarthritis Endocrine: Yes: Hypothyroidism (previously on synthroid, but this has now been stopped.) - Past Surgical History Past Surgical History: Yes: Appendectomy ('Many years ago') - Smoking History Smoking history: Never smoked Have you smoked in the past 12 months: No Aproximately how many cigarettes per day: 0 - Alcohol/Substance Use Hx Alcohol Use: No History of Substance Use: reports: None - Social History Usual Living Arrangement: Yes: With Child ADL: Independent 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 [employer] History of Recent Travel: No Home Medications - Allergies Allergies/Adverse Reactions: Allergies Allergy/AdvReac Type Severity Reaction Status Date / Time budesonide [From Symbicort] Allergy Severe Verified 10/13/18 05:16 formoterol fumarate Allergy Severe Verified 10/13/18 05:16 [From Symbicort] moxifloxacin HCl Allergy Intermediate Verified 10/13/18 05:16 [From Avelox] Penicillins Allergy Mild Hives Verified 10/13/18 05:16 - Home Medications Home Medications: Ambulatory Orders Atorvastatin Ca [Lipitor] 10 mg PO HS 01/07/16 Diltiazem Cd [Cardizem Cd -] 120 mg PO DAILY 01/07/16 Colchicine 0.6 mg PO PRN 07/11/16 Levothyroxine [Synthroid -] 125 mcg PO DAILY 06/17/17 Acetaminophen [Tylenol] 650 mg PO Q4HWA PRN 07/26/17 Calcium 250Mg/Vit-D 125 Units [Oscal 250 mg+D -] 1 tab PO DAILY 07/26/17 Dextran 70/Hypromellose/Pf [Tears Naturale Free Drops] 1 drop OD QID 07/26/17 Acetaminophen [Tylenol .Regular Strength -] 650 mg PO Q4H PRN tablet 02/24/18 Allopurinol [Zyloprim -] 100 mg PO DAILY 10/13/18 Apixaban [Eliquis] 2.5 mg PO BID 10/13/18 Baclofen 10 mg PO DAILY PRN 10/13/18 Calcium 250Mg/Vit-D 125 Units [Oscal 250 mg+D -] 1 tab PO DAILY 10/13/18 Colchicine 0.6 mg PO DAILY PRN 10/13/18 Fluticasone/Salmeterol [Advair Hfa 115-21 Mcg Inhaler] 2 puff IN QID PRN Meclizine HCl 12.5 mg PO DAILY PRN 10/13/18 Montelukast Sodium [Singulair] 10 mg PO DAILY 10/13/18 Spironolact/Hydrochlorothiazid [Spironolactone-Hctz 25-25 Tab] 1 each PO DAILY 10/13/18 Family Disease History - Family Disease History Family Disease History: Diabetes: Brother (asthma), Heart Disease: Father ( unspecified heart disease but reportedly of a 'heart attack'), Mother ( of an [place]), Respiratory: Brother, Sister (lung cancer, asthma/COPD), Other: Sister Review of Systems - Review of Systems Constitutional: reports: Chills, Fever, Malaise, Weakness Eyes: reports: No Symptoms HENT: reports: No Symptoms Neck: reports: No Symptoms Cardiovascular: reports: Shortness of Breath. denies: Chest Pain, Edema, Palpitations Respiratory: reports: SOB, Wheezing Genitourinary: reports: Flank Pain Breasts: reports: No Symptoms Reported Musculoskeletal: reports: Back Pain Integumentary: reports: No Symptoms Neurological: reports: No Symptoms Endocrine: reports: No Symptoms Hematology/Lymphatic: reports: No Symptoms Psychiatric: reports: No Symptoms Physical Examination Vital Signs: Vital Signs Temperature 102.6 F H 10/13/18 05:16 Pulse Rate 115 H 10/13/18 07:15 Respiratory Rate 22 H 10/13/18 07:15 Blood Pressure 121/98 10/13/18 07:15 O2 Sat by Pulse Oximetry (%) 98 10/13/18 07:15 Constitutional: Yes: Well Nourished, Calm Eyes: Yes: Conjunctiva Clear, EOM Intact HENT: Yes: Atraumatic, Normocephalic Neck: Yes: Supple, Trachea Midline Cardiovascular: Yes: Pulse Irregular Respiratory: Yes: Diminished, Rales (right base). No: Cough, SOB Gastrointestinal: Yes: Soft, Tenderness Renal/: Yes: WNL, CVA Tenderness - Left Breast(s): Yes: WNL Musculoskeletal: Yes: Back Pain Extremities: Yes: WNL Edema: No Peripheral Pulses WNL: Yes Integumentary: Yes: WNL Neurological: Yes: Alert, Oriented Psychiatric: Yes: Alert, Oriented Labs: CBC, BMP 10/13/18 06:05 10/13/18 06:05 Problem List - Problems (1) Sepsis Code(s): A41.9 - SEPSIS, UNSPECIFIED ORGANISM Qualifiers: Sepsis type: sepsis due to unspecified organism Qualified Code(s): A41.9 - Sepsis, unspecified organism (2) Complicated UTI (urinary tract infection) Code(s): N39.0 - URINARY TRACT INFECTION, SITE NOT SPECIFIED (3) Left flank pain Code(s): R10.9 - UNSPECIFIED ABDOMINAL PAIN (4) SHARON (acute kidney injury) Code(s): N17.9 - ACUTE KIDNEY FAILURE, UNSPECIFIED (5) Arthralgia Code(s): M25.50 - PAIN IN UNSPECIFIED JOINT Qualifiers: Joint pain location: unspecified Qualified Code(s): M25.50 - Pain in unspecified joint (6) Atrial fibrillation Code(s): I48.91 - UNSPECIFIED ATRIAL FIBRILLATION (7) CHF (congestive heart failure) Code(s): I50.9 - HEART FAILURE, UNSPECIFIED (8) COPD (chronic obstructive pulmonary disease) Code(s): J44.9 - CHRONIC OBSTRUCTIVE PULMONARY DISEASE, UNSPECIFIED (9) Fever Code(s): R50.9 - FEVER, UNSPECIFIED (10) Leukocytosis Code(s): D72.829 - ELEVATED WHITE BLOOD CELL COUNT, UNSPECIFIED (11) Osteoarthritis Code(s): M19.90 - UNSPECIFIED OSTEOARTHRITIS, UNSPECIFIED SITE Qualifiers: Osteoarthritis location: knee Osteoarthritis type: primary Laterality: left Qualified Code(s): M17.12 - Unilateral primary osteoarthritis, left knee (12) UTI (urinary tract infection) Code(s): N39.0 - URINARY TRACT INFECTION, SITE NOT SPECIFIED Qualifiers: Urinary tract infection type: acute cystitis Hematuria presence: without hematuria Qualified Code(s): N30.00 - Acute cystitis without hematuria
[2018-10-13] MEDS ORDERED: morphine CARPU-JECT 2 MG/1 ML DISP.SYRIN IVPUSH ONE (10:35)
[2018-10-13 10:40] LABS: ANISOCYTOSIS 1+; MACROCYTOSIS 1+; OVALOCYTE 1+; PLATELET ESTIMATE NORMAL
[2018-10-13] MEDS ORDERED: MORPHINE SULFATE 2 MG/ML VIAL ONE (10:51)
[2018-10-13] MEDS ORDERED: PANTOPRAZOLE SODIUM 40 MG/100 ML BAG IVPB ONE (10:52)
[2018-10-13] MEDS: DOCUSATE SODIUM 100 MG CAPSULE (FP) PO SCH ×3 (11:00→22:07)
[2018-10-13] MEDS ORDERED: SODIUM CHLORIDE 250 ML IV STA (12:09)
[2018-10-13] MEDS ORDERED: ONDANSETRON 4 MG/2 ML VIAL IVPUSH ONE (12:11)
--- NOTE | 2018-10-13 12:56 | EKG ---
Test Reason : Blood Pressure : / mmHG Vent. Rate : 118 BPM Atrial Rate : 133 BPM P-R Int : 000 ms QRS Dur : 080 ms QT Int : 340 ms P-R-T Axes : 000 071 018 degrees QTc Int : 476 ms ATRIAL FIBRILLATION WITH RAPID VENTRICULAR RESPONSE ABNORMAL ECG WHEN COMPARED WITH ECG OF 22-FEB-2018 15:16, VENT. RATE HAS INCREASED BY 42 BPM Confirmed by Tristan Weston ([id number]) on 10/13/2018 12:56:28 PM Referred By: Confirmed By:Tristan Weston
[2018-10-13] MEDS ORDERED: ONDANSETRON 4 MG/2 ML VIAL ONE (13:26)
[2018-10-13] MEDS ORDERED: ACETAMINOPHEN 1000 MG/100 ML VIAL (NON FORMULARY) IVPB ONE (14:22)
[2018-10-13] MEDS ORDERED: ACETAMINOPHEN INJECTION 100 ML IVPB ONE (14:28)
[2018-10-13] MEDS ORDERED: PATIENT'S OWN MEDICATION (NON-FORMULARY) (Fluticasone/Salmeterol [Advair Hfa 115-21 Mcg In IN PRN (19:05)
[2018-10-13] MEDS ORDERED: MECLIZINE HCL 12.5 MG TABLET PO PRN (19:05)
[2018-10-13] MEDS ORDERED: BACLOFEN 10 MG TABLET (FP) PO PRN (19:05)
--- NOTE | 2018-10-13 19:54 | CON.ID ---
Consult Consult Specialty:: Infectious Diseases Referred by:: Dr. Gonzalez Reason for Consultation:: Fever - History of Present Illness Chief Complaint: Weakness and Flank Pains History of Present Illness: Pt is an 83 yr old female admitted with flank pain and weakness. She was well until a day ago, noted increasing flank pains. This persisted and she developed nausea and was brought to the ED where she was found to be febrile. W/Up showed leukocytosis, pyuria and was given Levaquin. - History Source History Provided By: Family Member Limitations to Obtaining History: No Limitations - Past Medical History Cardio/Vascular: Yes: AFIB, HTN, Mitral Insufficiency (Mitral/Tricupsid Regurgitation), Other (Afib) Pulmonary: Yes: Asthma, COPD Musculoskeletal: Yes: Osteoarthritis Endocrine: Yes: Hypothyroidism (previously on synthroid, but this has now been stopped.) - Past Surgical History Past Surgical History: Yes: Appendectomy ('Many years ago') - Alcohol/Substance Use Hx Alcohol Use: No History of Substance Use: reports: None - Smoking History Smoking history: Never smoked Have you smoked in the past 12 months: No Aproximately how many cigarettes per day: 0 - Social History Usual Living Arrangement: Other (lives with sister) ADL: Independent 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 [employer] History of Recent Travel: No Home Medications - Allergies Allergies/Adverse Reactions: Allergies Allergy/AdvReac Type Severity Reaction Status Date / Time budesonide [From Symbicort] Allergy Severe Verified 10/13/18 05:16 formoterol fumarate Allergy Severe Verified 10/13/18 05:16 [From Symbicort] moxifloxacin HCl Allergy Intermediate Verified 10/13/18 05:16 [From Avelox] Penicillins Allergy Mild Hives Verified 10/13/18 05:16 - Home Medications Home Medications: Ambulatory Orders Atorvastatin Ca [Lipitor] 10 mg PO HS 01/07/16 Diltiazem Cd [Cardizem Cd -] 120 mg PO DAILY 01/07/16 Colchicine 0.6 mg PO PRN 07/11/16 Levothyroxine [Synthroid -] 125 mcg PO DAILY 06/17/17 Acetaminophen [Tylenol] 650 mg PO Q4HWA PRN 07/26/17 Calcium 250Mg/Vit-D 125 Units [Oscal 250 mg+D -] 1 tab PO DAILY 07/26/17 Dextran 70/Hypromellose/Pf [Tears Naturale Free Drops] 1 drop OD QID 07/26/17 Acetaminophen [Tylenol .Regular Strength -] 650 mg PO Q4H PRN tablet 02/24/18 Allopurinol [Zyloprim -] 100 mg PO DAILY 10/13/18 Apixaban [Eliquis] 2.5 mg PO DAILY 10/13/18 Baclofen 10 mg PO DAILY PRN 10/13/18 Calcium 250Mg/Vit-D 125 Units [Oscal 250 mg+D -] 1 tab PO DAILY 10/13/18 Colchicine 0.6 mg PO DAILY PRN 10/13/18 Fluticasone/Salmeterol [Advair Hfa 115-21 Mcg Inhaler] 2 puff IN QID PRN Meclizine HCl 12.5 mg PO DAILY PRN 10/13/18 Montelukast Sodium [Singulair] 10 mg PO DAILY 10/13/18 Spironolact/Hydrochlorothiazid [Spironolactone-Hctz 25-25 Tab] 1 each PO DAILY 10/13/18 Family Disease History - Family Disease History Family Disease History: Diabetes: Brother (asthma), Heart Disease: Father ( unspecified heart disease but reportedly of a 'heart attack'), Mother ( of an [place]), Respiratory: Brother, Sister (lung cancer, asthma/COPD), Other: Sister Review of Systems - Review of Systems Constitutional: reports: Chills, Fever HENT: reports: No Symptoms Cardiovascular: reports: No Symptoms Respiratory: reports: SOB Musculoskeletal: reports: Joint Pain Physical Exam Vital Signs: Vital Signs Temperature 99.2 F 10/13/18 10:50 Pulse Rate 139 H 10/13/18 10:50 Respiratory Rate 32 H 10/13/18 10:50 Blood Pressure 125/89 10/13/18 10:50 O2 Sat by Pulse Oximetry (%) 98 10/13/18 18:33 Constitutional: Yes: Calm Eyes: Yes: PERRL Neck: Yes: Supple Cardiovascular: Yes: Tachycardia, Pulse Irregular Respiratory: Yes: CTA Bilaterally Gastrointestinal: Yes: Normal Bowel Sounds, Soft Labs: CBC, BMP 10/13/18 06:05 10/13/18 06:05 Imaging - Results Chest X-ray: Report Reviewed Cat Scan: Report Reviewed Problem List - Problems (1) Atrial fibrillation Code(s): I48.91 - UNSPECIFIED ATRIAL FIBRILLATION (2) Complicated UTI (urinary tract infection) Code(s): N39.0 - URINARY TRACT INFECTION, SITE NOT SPECIFIED (3) SHARON (acute kidney injury) Code(s): N17.9 - ACUTE KIDNEY FAILURE, UNSPECIFIED Assessment/Plan Pt withAF, HTN admitted with Fever, Leukocytosis, UTI Moxifloxacin and PCN allergy Ribera c/s Micro reports (+) GPCocci in 1 bottle (?) contaminant vs real infection. Give 1 dose Vanco 1 gr Rx CTX 2 gr q 24. DC [facility] Cardiology consult - Dr Patterson.
[2018-10-13] MEDS ORDERED: VANCOMYCIN 1 GRAM (PRE-DOCKED) 1,000 MG/250 ML BAG IVPB ONE (21:15)
[2018-10-13] MEDS: ALLOPURINOL 100 MG TABLET (FP) PO SCH (22:06)
[2018-10-13] MEDS: LEVOTHYROXINE NA 125 MCG TABLET (FP) PO SCH (22:06)
[2018-10-13] MEDS: PATIENT'S OWN MEDICATION (NON-FORMULARY) (Spironolact/Hydrochlorothiazid [Spironolactone-H PO SCH (22:07)
[2018-10-13] MEDS: APIXABAN 2.5 MG TABLET PO SCH (22:08)
[2018-10-13] MEDS: MONTELUKAST NA 10 MG TABLET PO SCH (22:08)
[2018-10-13] MEDS: ATORVASTATIN CA 10 MG TABLET (FP) PO SCH (22:08)
[2018-10-13] MEDS: ACETAMINOPHEN 325 MG TABLET (FP) PO PRN (22:09)
[2018-10-13] MEDS: ARTIFICIAL TEARS (POLYVINYL ALCOHOL) OPTH DROPS OD SCH (22:28)
[2018-10-14] MEDS: LEVOTHYROXINE NA 125 MCG TABLET (FP) PO SCH (06:13)
[2018-10-14 07:28] LABS: HEMATOCRIT 32.1 % (32.4-45.2); HEMOGLOBIN 10.8 GM/dL (10.7-15.3); MCH 35.8 pg (25.7-33.7); MCHC 33.7 g/dl (32.0-36.0); MEAN CELL VOLUME 106.3 fl (80-96); MEAN PLT VOLUME 8.1 fl (7.5-11.1); PLATELET COUNT 174 K/MM3 (134-434); RBC 3.02 M/mm3 (3.60-5.2); RDW 14.2 % (11.6-15.6); WHITE BLOOD COUNT 24.3 K/mm3 (4.0-10.0)
[2018-10-14] MEDS: ALBUTEROL SO4 2.5/IPRATROPIUM 0.5 INH SOL 3 ML VIAL.NEB. NEB SCH ×4 (07:56→20:28)
[2018-10-14 08:08] LABS: ALK PHOS 65 U/L (45-117); ANION GAP 9 MMOL/L (8-16); BILIRUBIN,TOTAL 0.6 mg/dL (0.2-1); BLOOD UREA NITROGEN 42 mg/dL (7-18); CALCIUM 8.1 mg/dL (8.5-10.1); CHLORIDE 105 mmol/L (98-107); CO2 23 mmol/L (21-32); CREATININE 1.7 mg/dL (0.55-1.3); GLUCOSE,RANDOM 76 mg/dL (74-106); MAGNESIUM 1.8 mg/dL (1.8-2.4); POTASSIUM 4.6 mmol/L (3.5-5.1); SGOT/AST 37 U/L (15-37); SGPT/ALT 22 U/L (13-61); SODIUM 137 mmol/L (136-145); TOT PROT 6.3 g/dl (6.4-8.2)
--- NOTE | 2018-10-14 09:44 | CON.CARD ---
Consult Consult Specialty:: Cardiology Referred by:: Carlos Reason for Consultation:: atrial fibrillation - History of Present Illness Chief Complaint: shortness of breath History of Present Illness: 83F h/o HTN, CHF, COPD, asthma, hypothyroidism, HLD, afib, GI bleed p/w shortness of breath, wheezing, L flank pain, suprapubic pain for one day. In the ER EKG showed Afib with RVR, patient was febrile. Trop neg x 1, BNP 3193. This morning still has flank pain, no chest pain, palps, dizziness, lightheadedness. - Past Medical History Cardio/Vascular: Yes: AFIB, HTN, Mitral Insufficiency (Mitral/Tricupsid Regurgitation), Other (Afib) Pulmonary: Yes: Asthma, COPD ...: No Musculoskeletal: Yes: Osteoarthritis Endocrine: Yes: Hypothyroidism (previously on synthroid, but this has now been stopped.) - Past Surgical History Past Surgical History: Yes: Appendectomy ('Many years ago') - Alcohol/Substance Use Hx Alcohol Use: No History of Substance Use: reports: None - Smoking History Smoking history: Never smoked Have you smoked in the past 12 months: No Aproximately how many cigarettes per day: 0 - Social History Usual Living Arrangement: Other (lives with sister) ADL: Independent 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 [employer] History of Recent Travel: No Home Medications - Allergies Allergies/Adverse Reactions: Allergies Allergy/AdvReac Type Severity Reaction Status Date / Time budesonide [From Symbicort] Allergy Severe Verified 10/13/18 05:16 formoterol fumarate Allergy Severe Verified 10/13/18 05:16 [From Symbicort] moxifloxacin HCl Allergy Intermediate Verified 10/13/18 05:16 [From Avelox] Penicillins Allergy Mild Hives Verified 10/13/18 05:16 - Home Medications Home Medications: Ambulatory Orders Atorvastatin Ca [Lipitor] 10 mg PO HS 01/07/16 Diltiazem Cd [Cardizem Cd -] 120 mg PO DAILY 01/07/16 Colchicine 0.6 mg PO PRN 07/11/16 Levothyroxine [Synthroid -] 125 mcg PO DAILY 06/17/17 Acetaminophen [Tylenol] 650 mg PO Q4HWA PRN 07/26/17 Calcium 250Mg/Vit-D 125 Units [Oscal 250 mg+D -] 1 tab PO DAILY 07/26/17 Dextran 70/Hypromellose/Pf [Tears Naturale Free Drops] 1 drop OD QID 07/26/17 Acetaminophen [Tylenol .Regular Strength -] 650 mg PO Q4H PRN tablet 02/24/18 Allopurinol [Zyloprim -] 100 mg PO DAILY 10/13/18 Apixaban [Eliquis] 2.5 mg PO BID 10/13/18 Baclofen 10 mg PO DAILY PRN 10/13/18 Calcium 250Mg/Vit-D 125 Units [Oscal 250 mg+D -] 1 tab PO DAILY 10/13/18 Colchicine 0.6 mg PO DAILY PRN 10/13/18 Fluticasone/Salmeterol [Advair Hfa 115-21 Mcg Inhaler] 2 puff IN QID PRN Meclizine HCl 12.5 mg PO DAILY PRN 10/13/18 Montelukast Sodium [Singulair] 10 mg PO DAILY 10/13/18 Spironolact/Hydrochlorothiazid [Spironolactone-Hctz 25-25 Tab] 1 each PO DAILY 10/13/18 Family Disease History - Family Disease History Family Disease History: Diabetes: Brother (asthma), Heart Disease: Father ( unspecified heart disease but reportedly of a 'heart attack'), Mother ( of an [place]), Respiratory: Brother, Sister (lung cancer, asthma/COPD), Other: Sister Review of Systems - Review of Systems Constitutional: reports: No Symptoms Eyes: reports: No Symptoms HENT: reports: No Symptoms Neck: reports: No Symptoms Cardiovascular: reports: No Symptoms Respiratory: reports: No Symptoms Gastrointestinal: reports: No Symptoms Genitourinary: reports: No Symptoms Musculoskeletal: reports: No Symptoms Integumentary: reports: No Symptoms Neurological: reports: No Symptoms Endocrine: reports: No Symptoms Hematology/Lymphatic: reports: No Symptoms Psychiatric: reports: No Symptoms Vital Signs: Vital Signs Temperature 97.7 F 10/14/18 09:12 Pulse Rate 92 H 10/14/18 09:12 Respiratory Rate 20 10/14/18 09:12 Blood Pressure 116/51 L 10/14/18 09:12 O2 Sat by Pulse Oximetry (%) 99 10/13/18 21:00 Constitutional: Yes: No Distress, Calm Eyes: Yes: Conjunctiva Clear, EOM Intact HENT: Yes: Atraumatic, Normocephalic Neck: Yes: Supple, Trachea Midline Respiratory: Yes: Regular, CTA Bilaterally Gastrointestinal: Yes: Normal Bowel Sounds, Soft Cardiovascular: Yes: Pulse Irregular JVD: No Carotid Bruit: No Heart Sounds: Yes: S1, S2 Musculoskeletal: No: Back Pain Extremities: No: Cold Edema: No Peripheral Pulses WNL: Yes Peripheral Pulses: 2+ Left Doralis Pedis, 2+ Right Dorsalis Pedis Neurological: Yes: Alert, Oriented Psychiatric: Yes: Alert, Oriented - Other Data Labs, Other Data: CBC, BMP 10/14/18 07:00 10/14/18 07:00 INR, PTT INR 1.65 (0.83-1.09) H 10/13/18 06:05 Troponin, BNP 10/13/18 06:05 B-Natriuretic Peptide 3171.5 H Troponin, BNP 10/13/18 06:05 B-Natriuretic Peptide 3171.5 H Assessment/Plan EKG: afib with RVR, no ischemic changes tele: afib 90s-110s, occ 120s-130s
[2018-10-14] MEDS ORDERED: DEXTROSE 5%-WATER 100 ML IVPB ONE (09:47)
[2018-10-14] MEDS: CEFTRIAXONE 2 GM in DEXTROSE 5%-WATER 100 ML IVPB SCH (09:51)
[2018-10-14] MEDS: DOCUSATE SODIUM 100 MG CAPSULE (FP) PO SCH ×2 (09:51→21:40)
[2018-10-14] MEDS: ALLOPURINOL 100 MG TABLET (FP) PO SCH (09:51)
[2018-10-14] MEDS: ARTIFICIAL TEARS (POLYVINYL ALCOHOL) OPTH DROPS OD SCH ×4 (09:51→21:45)
[2018-10-14] MEDS: APIXABAN 2.5 MG TABLET PO SCH ×2 (09:51→21:40)
[2018-10-14] MEDS: PANTOPRAZOLE 40 MG TABLET (FP) PO SCH (09:51)
[2018-10-14] MEDS: ACETAMINOPHEN 325 MG TABLET (FP) PO PRN (09:52)
[2018-10-14] MEDS: PATIENT'S OWN MEDICATION (NON-FORMULARY) (Spironolact/Hydrochlorothiazid [Spironolactone-H PO SCH (09:52)
--- NOTE | 2018-10-14 11:49 | PN ---
Progress Note, Physician Chief Complaint: Fever History of Present Illness: Pt is an 83 yr old female admitted with flank pain and weakness. She was well until a day ago, noted increasing flank pains. This persisted and she developed nausea and was brought to the ED where she was found to be febrile. W/Up showed leukocytosis, pyuria and was given Levaquin. - Current Medication List Current Medications: Active Medications Acetaminophen (Tylenol -) 650 mg PO Q4H PRN PRN Reason: PAIN LEVEL 1-5 Last Admin: 10/14/18 09:52 Dose: 650 mg Albuterol/Ipratropium (Duoneb -) 1 amp NEB RQID [facility] Last Admin: 10/14/18 11:22 Dose: 1 amp Allopurinol (Zyloprim -) 100 mg PO DAILY [facility] Last Admin: 10/14/18 09:51 Dose: 100 mg Apixaban (Eliquis -) 2.5 mg PO BID [facility] Last Admin: 10/14/18 09:51 Dose: 2.5 mg Artificial Tears (Artificial Tears) 1 drop OD QID [facility] Last Admin: 10/14/18 09:51 Dose: 1 drop Atorvastatin Calcium (Lipitor -) 10 mg PO HS [facility] Last Admin: 10/13/18 22:08 Dose: 10 mg Baclofen (Lioresal -) 10 mg PO DAILY PRN PRN Reason: SPASMS Diltiazem HCl (Cardizem Cd -) 120 mg PO DAILY [facility] Last Admin: 10/14/18 09:51 Dose: 120 mg Docusate Sodium (Colace -) 100 mg PO BID [facility] Last Admin: 10/14/18 09:51 Dose: 100 mg Ceftriaxone Sodium 2 gm/ (Dextrose) 100 mls @ 200 mls/hr IVPB DAILY [facility] Last Admin: 10/14/18 09:51 Dose: 200 mls/hr Levothyroxine Sodium (Synthroid -) 125 mcg PO DAILY@0700 [facility] Last Admin: 10/14/18 06:13 Dose: 125 mcg Meclizine HCl (Antivert -) 12.5 mg PO DAILY PRN PRN Reason: ANXIETY Montelukast Sodium (Singulair -) 10 mg PO HS [facility] Last Admin: 10/13/18 22:08 Dose: 10 mg Non-Formulary Medication (Fluticasone/Salmeterol [Advair Hfa 115-21 Mcg Inhaler] ) 2 puff IN QID PRN PRN Reason: ASTHMA Non-Formulary Medication (Spironolact/Hydrochlorothiazid [Spironolactone-Hctz 25 -25 Tab]) 1 each PO DAILY [facility] Last Admin: 10/14/18 09:52 Dose: 1 each Pantoprazole Sodium (Protonix -) 40 mg PO DAILY [facility] Last Admin: 10/14/18 09:51 Dose: 40 mg - Objective Vital Signs: Vital Signs Temperature 97.7 F 10/14/18 09:12 Pulse Rate 92 H 10/14/18 09:12 Respiratory Rate 20 10/14/18 09:12 Blood Pressure 116/51 L 10/14/18 09:12 O2 Sat by Pulse Oximetry (%) 99 10/14/18 09:00 Constitutional: Yes: No Distress Eyes: Yes: PERRL HENT: Yes: Atraumatic Neck: Yes: Supple Cardiovascular: Yes: Regular Rate and Rhythm Respiratory: Yes: CTA Bilaterally Gastrointestinal: Yes: Normal Bowel Sounds, Soft Labs: CBC, BMP 10/14/18 07:00 10/14/18 07:00 INR, PTT INR 1.65 (0.83-1.09) H 10/13/18 06:05 Problem List - Problems (1) Atrial fibrillation Code(s): I48.91 - UNSPECIFIED ATRIAL FIBRILLATION (2) Complicated UTI (urinary tract infection) Code(s): N39.0 - URINARY TRACT INFECTION, SITE NOT SPECIFIED (3) SHARON (acute kidney injury) Code(s): N17.9 - ACUTE KIDNEY FAILURE, UNSPECIFIED Assessment/Plan Pt with AF, HTN admitted with Fever, Leukocytosis, UTI Moxifloxacin and PCN allergy Gram Negative Bacteremia Micro amended c/s - GNR Cardio consult (P). PAin control Tramadol 50 mg q 8 prn
[2018-10-14] MEDS: SODIUM CHLORIDE 0.45% 1,000 ML IV SCH (12:16)
[2018-10-14] MEDS: traMADol HCL 50 MG TABLET PO PRN (12:16)
[2018-10-14] MEDS ORDERED: PT OWN MED DRAWER 7, Y5N ONE ×2 (14:06→21:43)
[2018-10-14] MEDS ORDERED: FUROSEMIDE 40 MG/4 ML INJECTABLE VIAL IVPUSH ONE (14:34)
--- NOTE | 2018-10-14 16:10 | CON.CARD ---
Consult Consult Specialty:: Cardiology Referred by:: Dr. Gonzalez/Dr. Barragan Reason for Consultation:: Afib with RVR, sob - History of Present Illness Chief Complaint: SOB, fevers History of Present Illness: 83 year old woman with pmh HTN, HLD, MVR, afib on eliquis and cardizem, chronic diastolic CHF, COPD, CVA, h/o GI bleed admitted with sob, fever, flank and suprapubic pain, urosepsis with afib with RVR in this setting. pt seen and examined today in nad. lying comfortably not currently sob but pts daughter notes she had sob when ambulating to the bathroom. HR has improved to 80s-90s currently after treatment for sepsis initiated. Pt does admit to palpitations in addition to sob. no chest pain. no LE edema. - Past Medical History Cardio/Vascular: Yes: AFIB, HTN, Mitral Insufficiency (Mitral/Tricupsid Regurgitation), Other (Afib) Pulmonary: Yes: Asthma, COPD ...: No Musculoskeletal: Yes: Osteoarthritis Endocrine: Yes: Hypothyroidism (previously on synthroid, but this has now been stopped.) - Past Surgical History Past Surgical History: Yes: Appendectomy ('Many years ago') - Alcohol/Substance Use Hx Alcohol Use: No History of Substance Use: reports: None - Smoking History Smoking history: Never smoked Have you smoked in the past 12 months: No Aproximately how many cigarettes per day: 0 - Social History Usual Living Arrangement: Other (lives with sister) ADL: Independent 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 [employer] History of Recent Travel: No Home Medications - Allergies Allergies/Adverse Reactions: Allergies Allergy/AdvReac Type Severity Reaction Status Date / Time budesonide [From Symbicort] Allergy Severe Verified 10/13/18 05:16 formoterol fumarate Allergy Severe Verified 10/13/18 05:16 [From Symbicort] moxifloxacin HCl Allergy Intermediate Verified 10/13/18 05:16 [From Avelox] Penicillins Allergy Mild Hives Verified 10/13/18 05:16 - Home Medications Home Medications: Ambulatory Orders Atorvastatin Ca [Lipitor] 10 mg PO HS 01/07/16 Diltiazem Cd [Cardizem Cd -] 120 mg PO DAILY 01/07/16 Colchicine 0.6 mg PO PRN 07/11/16 Levothyroxine [Synthroid -] 125 mcg PO DAILY 06/17/17 Acetaminophen [Tylenol] 650 mg PO Q4HWA PRN 07/26/17 Calcium 250Mg/Vit-D 125 Units [Oscal 250 mg+D -] 1 tab PO DAILY 07/26/17 Dextran 70/Hypromellose/Pf [Tears Naturale Free Drops] 1 drop OD QID 07/26/17 Acetaminophen [Tylenol .Regular Strength -] 650 mg PO Q4H PRN tablet 02/24/18 Allopurinol [Zyloprim -] 100 mg PO DAILY 10/13/18 Apixaban [Eliquis] 2.5 mg PO BID 10/13/18 Baclofen 10 mg PO DAILY PRN 10/13/18 Calcium 250Mg/Vit-D 125 Units [Oscal 250 mg+D -] 1 tab PO DAILY 10/13/18 Colchicine 0.6 mg PO DAILY PRN 10/13/18 Fluticasone/Salmeterol [Advair Hfa 115-21 Mcg Inhaler] 2 puff IN QID PRN Meclizine HCl 12.5 mg PO DAILY PRN 10/13/18 Montelukast Sodium [Singulair] 10 mg PO DAILY 10/13/18 Spironolact/Hydrochlorothiazid [Spironolactone-Hctz 25-25 Tab] 1 each PO DAILY 10/13/18 Family Disease History - Family Disease History Family Disease History: Diabetes: Brother (asthma), Heart Disease: Father ( unspecified heart disease but reportedly of a 'heart attack'), Mother ( of an [place]), Respiratory: Brother, Sister (lung cancer, asthma/COPD), Other: Sister Vital Signs: Vital Signs Temperature 100.5 F H 10/14/18 14:45 Pulse Rate 93 H 10/14/18 14:45 Respiratory Rate 21 H 10/14/18 14:45 Blood Pressure 108/64 10/14/18 14:45 O2 Sat by Pulse Oximetry (%) 99 10/14/18 09:00 - Other Data Labs, Other Data: CBC, BMP 10/14/18 07:00 10/14/18 07:00 INR, PTT INR 1.65 (0.83-1.09) H 10/13/18 06:05 Assessment/Plan 83 year old woman with pmh HTN, HLD, MVR, afib on eliquis and cardizem, chronic diastolic CHF, COPD, CVA, h/o GI bleed admitted with sob, fever, flank and suprapubic pain, urosepsis with afib with RVR in this setting. pt seen and examined today in nad. lying comfortably not currently sob but pts daughter notes she had sob when ambulating to the bathroom. HR has improved to 80s-90s currently after treatment for sepsis initiated. Pt does admit to palpitations in addition to sob. no chest pain. no LE edema. Afib with RVR-known h/o Afib -in setting of urosepsis and fever -improved with IVF hydration and fever control -HR now adequately controlled -cont cardizem cd 120mg daily -cont eliquis -can dc tele if HR remains adequately controlled SOB-pulmonary edema on exam -no sob lying at rest currently -likely degree of mild flash pulmonary edema in setting of afib with RVR and chronic diastolic CHF, as well as with fluid resuscitation needed for sepsis -can dose Lasix IV prn, will start with Lasix 20mg IV x 1 now and re-evaluate Hold spironolactone/HCTZ for now due to elevated creatinine, low normal BP in setting of sepsis and can resume when improves.
[2018-10-14] MEDS: MONTELUKAST NA 10 MG TABLET PO SCH (21:40)
[2018-10-14] MEDS: ATORVASTATIN CA 10 MG TABLET (FP) PO SCH (21:40)
--- NOTE | 2018-10-14 23:34 | PN ---
Progress Note (short form) - Note Progress Note: seen and examined in room Laying in bed comfortable daughter reports she had CARLISLE when walking to bathroom Vital Signs Period Temp Pulse Resp BP Sys/Peck Pulse Ox Last 24 Hr 97.7 F-100.5 F 88-105 20-21 95-126/47-64 99 neck supple heart s1/S2 irreg lungs rales at right base no wheezing abd soft suprapubic tenderness / BS + ext no edema / no calf tenderness CBC, BMP 10/14/18 07:00 10/14/18 07:00 Microbiology 10/13/18 06:05 Blood - Peripheral Venous Blood Culture - Preliminary Non Lactose Fermenting Gnb 10/13/18 06:35 Urine - Urine - Catheterized Urine Culture - Preliminary Non Lactose Fermenting Gnb 10/13/18 06:05 Blood - Peripheral Venous Blood Culture - Preliminary NO GROWTH OBTAINED AFTER 24 HOURS, INCUBATION TO CONTINUE FOR [address] Abd / pelvis Moderate right Hydronephrosis & mild to moderate right hydroureter Active Medications Acetaminophen (Tylenol -) 650 mg PO Q4H PRN PRN Reason: PAIN LEVEL 1-5 Last Admin: 10/14/18 09:52 Dose: 650 mg Albuterol/Ipratropium (Duoneb -) 1 amp NEB RQID [facility] Last Admin: 10/14/18 20:28 Dose: 1 amp Allopurinol (Zyloprim -) 100 mg PO DAILY [facility] Last Admin: 10/14/18 09:51 Dose: 100 mg Apixaban (Eliquis -) 2.5 mg PO BID [facility] Last Admin: 10/14/18 21:40 Dose: 2.5 mg Artificial Tears (Artificial Tears) 1 drop OD QID [facility] Last Admin: 10/14/18 21:45 Dose: 1 drop Atorvastatin Calcium (Lipitor -) 10 mg PO HS [facility] Last Admin: 10/14/18 21:40 Dose: 10 mg Baclofen (Lioresal -) 10 mg PO DAILY PRN PRN Reason: SPASMS Diltiazem HCl (Cardizem Cd -) 120 mg PO DAILY [facility] Last Admin: 10/14/18 09:51 Dose: 120 mg Docusate Sodium (Colace -) 100 mg PO BID [facility] Last Admin: 10/14/18 21:40 Dose: 100 mg Ceftriaxone Sodium 2 gm/ (Dextrose) 100 mls @ 200 mls/hr IVPB DAILY [facility] Last Admin: 10/14/18 09:51 Dose: 200 mls/hr Sodium Chloride (1/2 Normal Saline) 1,000 mls @ 60 mls/hr IV ASDIR [facility] Last Admin: 10/14/18 12:16 Dose: 60 mls/hr Levothyroxine Sodium (Synthroid -) 125 mcg PO DAILY@0700 [facility] Last Admin: 10/14/18 06:13 Dose: 125 mcg Meclizine HCl (Antivert -) 12.5 mg PO DAILY PRN PRN Reason: ANXIETY Montelukast Sodium (Singulair -) 10 mg PO HS [facility] Last Admin: 10/14/18 21:40 Dose: 10 mg Non-Formulary Medication (Fluticasone/Salmeterol [Advair Hfa 115-21 Mcg Inhaler] ) 2 puff IN QID PRN PRN Reason: ASTHMA Pantoprazole Sodium (Protonix -) 40 mg PO DAILY [facility] Last Admin: 10/14/18 09:51 Dose: 40 mg Tramadol HCl (Ultram -) 50 mg PO Q8H PRN PRN Reason: PAIN LEVEL 6-10 Last Admin: 10/14/18 12:16 Dose: 50 mg 83 year old woman with pmh HTN, HLD, MVR, afib on eliquis and cardizem, chronic diastolic CHF, COPD, CVA, h/o GI bleed admitted with sob, fever, flank and suprapubic pain, urosepsis with afib with RVR in this setting. # sepsis/uro sepsis hydronephrosis Iv ABX urology consult # Afib continue NOAC rate control # dHF mild HF 2/2 to a.fib RVR and IV fluid IV lasix this am follow clinically - Lasix PRN follow daily weights trend renal function #hypothyroid continue synthroid # HTN continue home meds # HX CVA stable - at baseline per family Problem List - Problems (1) Sepsis Code(s): A41.9 - SEPSIS, UNSPECIFIED ORGANISM Qualifiers: Sepsis type: sepsis due to unspecified organism Qualified Code(s): A41.9 - Sepsis, unspecified organism (2) Complicated UTI (urinary tract infection) Code(s): N39.0 - URINARY TRACT INFECTION, SITE NOT SPECIFIED (3) Left flank pain Code(s): R10.9 - UNSPECIFIED ABDOMINAL PAIN (4) SHARON (acute kidney injury) Code(s): N17.9 - ACUTE KIDNEY FAILURE, UNSPECIFIED (5) Arthralgia Code(s): M25.50 - PAIN IN UNSPECIFIED JOINT Qualifiers: Joint pain location: unspecified Qualified Code(s): M25.50 - Pain in unspecified joint (6) Atrial fibrillation Code(s): I48.91 - UNSPECIFIED ATRIAL FIBRILLATION (7) CHF (congestive heart failure) Code(s): I50.9 - HEART FAILURE, UNSPECIFIED (8) COPD (chronic obstructive pulmonary disease) Code(s): J44.9 - CHRONIC OBSTRUCTIVE PULMONARY DISEASE, UNSPECIFIED (9) Fever Code(s): R50.9 - FEVER, UNSPECIFIED (10) Leukocytosis Code(s): D72.829 - ELEVATED WHITE BLOOD CELL COUNT, UNSPECIFIED (11) Osteoarthritis Code(s): M19.90 - UNSPECIFIED OSTEOARTHRITIS, UNSPECIFIED SITE Qualifiers: Osteoarthritis location: knee Osteoarthritis type: primary Laterality: left Qualified Code(s): M17.12 - Unilateral primary osteoarthritis, left knee (12) UTI (urinary tract infection) Code(s): N39.0 - URINARY TRACT INFECTION, SITE NOT SPECIFIED Qualifiers: Urinary tract infection type: acute cystitis Hematuria presence: without hematuria Qualified Code(s): N30.00 - Acute cystitis without hematuria
[2018-10-15] MEDS: LEVOTHYROXINE NA 125 MCG TABLET (FP) PO SCH (06:13)
[2018-10-15] MEDS: ALBUTEROL SO4 2.5/IPRATROPIUM 0.5 INH SOL 3 ML VIAL.NEB. NEB SCH ×4 (07:39→20:46)
[2018-10-15] MEDS: ACETAMINOPHEN 325 MG TABLET (FP) PO PRN (09:04)
--- NOTE | 2018-10-15 09:08 | PN ---
Progress Note (short form) - Note Progress Note: 83 y/o female found in bed with O2 in place via nasal cannula. Pmh of HTN, HLD, MVR, afib on eliquis and cardizem, chronic diastolic CHF, COPD, CVA, h/o GI bleed admitted with sob, fever, flank and suprapubic pain, urosepsis with afib with RVR. Reports intermittent flank pain. Vital Signs Period Temp Pulse Resp BP Sys/Peck Pulse Ox Last 24 Hr 97.7 F-100.5 F 92-126 18-21 108-127/51-93 95-97 CBC, BMP 10/14/18 07:00 10/14/18 07:00 HEENT- Normocephalic Neck-Supple Lungs- CTAB Heart-S1/S2 Abd- soft, tender Ext- No LE edema Active Medications Acetaminophen (Tylenol -) 650 mg PO Q4H PRN PRN Reason: PAIN LEVEL 1-5 Last Admin: 10/15/18 09:04 Dose: 650 mg Albuterol/Ipratropium (Duoneb -) 1 amp NEB RQID [facility] Last Admin: 10/15/18 07:39 Dose: 1 amp Allopurinol (Zyloprim -) 100 mg PO DAILY [facility] Last Admin: 10/14/18 09:51 Dose: 100 mg Apixaban (Eliquis -) 2.5 mg PO BID [facility] Last Admin: 10/14/18 21:40 Dose: 2.5 mg Artificial Tears (Artificial Tears) 1 drop OD QID [facility] Last Admin: 10/14/18 21:45 Dose: 1 drop Atorvastatin Calcium (Lipitor -) 10 mg PO HS [facility] Last Admin: 10/14/18 21:40 Dose: 10 mg Baclofen (Lioresal -) 10 mg PO DAILY PRN PRN Reason: SPASMS Diltiazem HCl (Cardizem Cd -) 120 mg PO DAILY [facility] Last Admin: 10/14/18 09:51 Dose: 120 mg Docusate Sodium (Colace -) 100 mg PO BID [facility] Last Admin: 10/14/18 21:40 Dose: 100 mg Ceftriaxone Sodium 2 gm/ (Dextrose) 100 mls @ 200 mls/hr IVPB DAILY [facility] Last Admin: 10/14/18 09:51 Dose: 200 mls/hr Sodium Chloride (1/2 Normal Saline) 1,000 mls @ 60 mls/hr IV ASDIR [facility] Last Admin: 10/14/18 12:16 Dose: 60 mls/hr Levothyroxine Sodium (Synthroid -) 125 mcg PO DAILY@0700 [facility] Last Admin: 10/15/18 06:13 Dose: 125 mcg Meclizine HCl (Antivert -) 12.5 mg PO DAILY PRN PRN Reason: ANXIETY Montelukast Sodium (Singulair -) 10 mg PO HS [facility] Last Admin: 10/14/18 21:40 Dose: 10 mg Non-Formulary Medication (Fluticasone/Salmeterol [Advair Hfa 115-21 Mcg Inhaler] ) 2 puff IN QID PRN PRN Reason: ASTHMA Pantoprazole Sodium (Protonix -) 40 mg PO DAILY [facility] Last Admin: 10/14/18 09:51 Dose: 40 mg Tramadol HCl (Ultram -) 50 mg PO Q8H PRN PRN Reason: PAIN LEVEL 6-10 Last Admin: 10/14/18 12:16 Dose: 50 mg # sepsis/uro sepsis hydronephrosis Iv ABX per ID urology consult pending #Pain Continue Baclofen and Tramadol PRN # Afib continue NOAC # CHF Cardiac consult appreciated Continue AC Hold spironolactone/ HCTZ due to elevated creatinine trend renal function #hypothyroid continue synthroid # HTN continue home meds # HX CVA stable Problem List - Problems (1) Sepsis Code(s): A41.9 - SEPSIS, UNSPECIFIED ORGANISM Qualifiers: Sepsis type: sepsis due to unspecified organism Qualified Code(s): A41.9 - Sepsis, unspecified organism (2) Complicated UTI (urinary tract infection) Code(s): N39.0 - URINARY TRACT INFECTION, SITE NOT SPECIFIED (3) Left flank pain Code(s): R10.9 - UNSPECIFIED ABDOMINAL PAIN (4) SHARON (acute kidney injury) Code(s): N17.9 - ACUTE KIDNEY FAILURE, UNSPECIFIED (5) Arthralgia Code(s): M25.50 - PAIN IN UNSPECIFIED JOINT Qualifiers: Joint pain location: unspecified Qualified Code(s): M25.50 - Pain in unspecified joint (6) Atrial fibrillation Code(s): I48.91 - UNSPECIFIED ATRIAL FIBRILLATION (7) CHF (congestive heart failure) Code(s): I50.9 - HEART FAILURE, UNSPECIFIED (8) COPD (chronic obstructive pulmonary disease) Code(s): J44.9 - CHRONIC OBSTRUCTIVE PULMONARY DISEASE, UNSPECIFIED (9) Fever Code(s): R50.9 - FEVER, UNSPECIFIED (10) Leukocytosis Code(s): D72.829 - ELEVATED WHITE BLOOD CELL COUNT, UNSPECIFIED (11) Osteoarthritis Code(s): M19.90 - UNSPECIFIED OSTEOARTHRITIS, UNSPECIFIED SITE Qualifiers: Osteoarthritis location: knee Osteoarthritis type: primary Laterality: left Qualified Code(s): M17.12 - Unilateral primary osteoarthritis, left knee (12) UTI (urinary tract infection) Code(s): N39.0 - URINARY TRACT INFECTION, SITE NOT SPECIFIED Qualifiers: Urinary tract infection type: acute cystitis Hematuria presence: without hematuria Qualified Code(s): N30.00 - Acute cystitis without hematuria
[2018-10-15] MEDS ORDERED: PT OWN MED DRAWER 7, Y5N ONE (09:20)
[2018-10-15] MEDS ORDERED: DEXTROSE 5%-WATER 100 ML IVPB ONE (09:20)
[2018-10-15] MEDS: ARTIFICIAL TEARS (POLYVINYL ALCOHOL) OPTH DROPS OD SCH ×4 (09:43→21:29)
[2018-10-15] MEDS: DOCUSATE SODIUM 100 MG CAPSULE (FP) PO SCH ×2 (09:44→21:21)
[2018-10-15] MEDS: APIXABAN 2.5 MG TABLET PO SCH ×2 (09:44→21:21)
[2018-10-15] MEDS: PANTOPRAZOLE 40 MG TABLET (FP) PO SCH (09:44)
[2018-10-15] MEDS: CEFTRIAXONE 2 GM in DEXTROSE 5%-WATER 100 ML IVPB SCH (09:44)
[2018-10-15] MEDS: ALLOPURINOL 100 MG TABLET (FP) PO SCH (09:45)
[2018-10-15 10:47] LABS: HEMATOCRIT 36.3 % (32.4-45.2); HEMOGLOBIN 12.3 GM/dL (10.7-15.3); MCH 35.5 pg (25.7-33.7); MCHC 33.9 g/dl (32.0-36.0); MEAN CELL VOLUME 104.9 fl (80-96); MEAN PLT VOLUME 8.6 fl (7.5-11.1); PLATELET COUNT 189 K/MM3 (134-434); RBC 3.46 M/mm3 (3.60-5.2); RDW 14.3 % (11.6-15.6); WHITE BLOOD COUNT 17.7 K/mm3 (4.0-10.0)
[2018-10-15 11:41] LABS: ANION GAP 12 MMOL/L (8-16); BLOOD UREA NITROGEN 38 mg/dL (7-18); CALCIUM 8.2 mg/dL (8.5-10.1); CHLORIDE 104 mmol/L (98-107); CO2 19 mmol/L (21-32); CREATININE 1.7 mg/dL (0.55-1.3); GLUCOSE,RANDOM 122 mg/dL (74-106); POTASSIUM 4.1 mmol/L (3.5-5.1); SODIUM 135 mmol/L (136-145)
[2018-10-15] MEDS: SODIUM CHLORIDE 0.45% 1,000 ML IV SCH (14:09)
--- NOTE | 2018-10-15 14:37 | PN ---
Progress Note, Physician History of Present Illness: seen and examined today in nad. no overnight events. - Current Medication List Current Medications: Active Medications Acetaminophen (Tylenol -) 650 mg PO Q4H PRN PRN Reason: PAIN LEVEL 1-5 Last Admin: 10/15/18 09:04 Dose: 650 mg Albuterol/Ipratropium (Duoneb -) 1 amp NEB RQID [facility] Last Admin: 10/15/18 11:27 Dose: 1 amp Allopurinol (Zyloprim -) 100 mg PO DAILY [facility] Last Admin: 10/15/18 09:45 Dose: 100 mg Apixaban (Eliquis -) 2.5 mg PO BID [facility] Last Admin: 10/15/18 09:44 Dose: 2.5 mg Artificial Tears (Artificial Tears) 1 drop OD QID [facility] Last Admin: 10/15/18 14:07 Dose: 1 drop Atorvastatin Calcium (Lipitor -) 10 mg PO HS [facility] Last Admin: 10/14/18 21:40 Dose: 10 mg Baclofen (Lioresal -) 10 mg PO DAILY PRN PRN Reason: SPASMS Diltiazem HCl (Cardizem Cd -) 120 mg PO DAILY [facility] Last Admin: 10/15/18 09:44 Dose: 120 mg Docusate Sodium (Colace -) 100 mg PO BID [facility] Last Admin: 10/15/18 09:44 Dose: 100 mg Ceftriaxone Sodium 2 gm/ (Dextrose) 100 mls @ 200 mls/hr IVPB DAILY [facility] Last Admin: 10/15/18 09:44 Dose: 200 mls/hr Sodium Chloride (1/2 Normal Saline) 1,000 mls @ 60 mls/hr IV ASDIR [facility] Last Admin: 10/15/18 14:09 Dose: Not Given Levothyroxine Sodium (Synthroid -) 125 mcg PO DAILY@0700 [facility] Last Admin: 10/15/18 06:13 Dose: 125 mcg Meclizine HCl (Antivert -) 12.5 mg PO DAILY PRN PRN Reason: ANXIETY Montelukast Sodium (Singulair -) 10 mg PO HS [facility] Last Admin: 10/14/18 21:40 Dose: 10 mg Non-Formulary Medication (Fluticasone/Salmeterol [Advair Hfa 115-21 Mcg Inhaler] ) 2 puff IN QID PRN PRN Reason: ASTHMA Pantoprazole Sodium (Protonix -) 40 mg PO DAILY [facility] Last Admin: 10/15/18 09:44 Dose: 40 mg Tramadol HCl (Ultram -) 50 mg PO Q8H PRN PRN Reason: PAIN LEVEL 6-10 Last Admin: 10/14/18 12:16 Dose: 50 mg - Objective Vital Signs: Vital Signs Temperature 99.6 F 10/15/18 14:21 Pulse Rate 102 H 10/15/18 14:21 Respiratory Rate 18 10/15/18 14:21 Blood Pressure 117/87 10/15/18 14:21 O2 Sat by Pulse Oximetry (%) 97 10/15/18 08:17 Constitutional: Yes: No Distress, Calm Eyes: Yes: Conjunctiva Clear, EOM Intact, PERRL HENT: Yes: Atraumatic, Normocephalic Neck: Yes: Supple, Trachea Midline Cardiovascular: Yes: Pulse Irregular, S1, S2. No: Regular Rate and Rhythm, Bradycardia, Tachycardia, Bruit, JVD, Gallop, Murmur, Rub, S3, S4, Varicosities Respiratory: Yes: Regular, Diminished, Rales, Wheezes. No: Rhonchi, SOB Gastrointestinal: Yes: Normal Bowel Sounds, Soft Extremities: Yes: WNL Edema: No Peripheral Pulses WNL: Yes Neurological: Yes: Alert, Oriented Psychiatric: Yes: Alert, Oriented Labs: CBC, BMP 10/15/18 10:33 10/15/18 10:33 INR, PTT INR 1.65 (0.83-1.09) H 10/13/18 06:05 - ....Imaging Chest X-ray: Report Reviewed, Image Reviewed EKG: Report Reviewed, Image Reviewed Other: Report Reviewed, Image Reviewed (tele-afib, HR adequately controlled) Assessment/Plan 83 year old woman with pmh HTN, HLD, MVR, afib on eliquis and cardizem, chronic diastolic CHF, COPD, CVA, h/o GI bleed admitted with sob, fever, flank and suprapubic pain, urosepsis with afib with RVR in this setting. pt seen and examined today in nad. lying comfortably not currently sob but pts daughter notes she had sob when ambulating to the bathroom. HR has improved to 80s-90s currently after treatment for sepsis initiated. Pt does admit to palpitations in addition to sob. no chest pain. no LE edema. Afib with RVR-known h/o Afib -in setting of urosepsis and fever -improved with IVF hydration and fever control -HR now adequately controlled -cont cardizem cd 120mg daily -cont eliquis -can dc tele as HR has remained adequately controlled SOB-pulmonary edema on exam eysterday, improved today, still mild rales, expiratory wheezes -no sob lying at rest currently -likely degree of mild flash pulmonary edema in setting of afib with RVR and chronic diastolic CHF, as well as with fluid resuscitation needed for sepsis -can dose Lasix IV prn, received Lasix 20mg IV x 1 yesterday -can give additional dose today and re-evaluate tomorrow Hold spironolactone/HCTZ for now due to elevated creatinine, low normal BP in setting of sepsis and can resume when improves.
[2018-10-15] MEDS ORDERED: FUROSEMIDE 40 MG/4 ML INJECTABLE VIAL IVPUSH ONE (15:34)
--- NOTE | 2018-10-15 19:42 | PN ---
Progress Note, Physician Chief Complaint: Fever History of Present Illness: Pt is an 83 yr old female admitted with flank pain and weakness. She was well until a day ago, noted increasing flank pains. This persisted and she developed nausea and was brought to the ED where she was found to be febrile. W/Up showed leukocytosis, pyuria and was given Levaquin. Now on CTX, Urine c/s EColi. - Current Medication List Current Medications: Active Medications Acetaminophen (Tylenol -) 650 mg PO Q4H PRN PRN Reason: PAIN LEVEL 1-5 Last Admin: 10/15/18 09:04 Dose: 650 mg Albuterol/Ipratropium (Duoneb -) 1 amp NEB RQID [facility] Last Admin: 10/15/18 11:27 Dose: 1 amp Allopurinol (Zyloprim -) 100 mg PO DAILY [facility] Last Admin: 10/15/18 09:45 Dose: 100 mg Apixaban (Eliquis -) 2.5 mg PO BID [facility] Last Admin: 10/15/18 09:44 Dose: 2.5 mg Artificial Tears (Artificial Tears) 1 drop OD QID [facility] Last Admin: 10/15/18 18:06 Dose: 1 drop Atorvastatin Calcium (Lipitor -) 10 mg PO HS [facility] Last Admin: 10/14/18 21:40 Dose: 10 mg Baclofen (Lioresal -) 10 mg PO DAILY PRN PRN Reason: SPASMS Diltiazem HCl (Cardizem Cd -) 120 mg PO DAILY [facility] Last Admin: 10/15/18 09:44 Dose: 120 mg Docusate Sodium (Colace -) 100 mg PO BID [facility] Last Admin: 10/15/18 09:44 Dose: 100 mg Ceftriaxone Sodium 2 gm/ (Dextrose) 100 mls @ 200 mls/hr IVPB DAILY [facility] Last Admin: 10/15/18 09:44 Dose: 200 mls/hr Sodium Chloride (1/2 Normal Saline) 1,000 mls @ 60 mls/hr IV ASDIR [facility] Last Admin: 10/15/18 14:09 Dose: Not Given Levothyroxine Sodium (Synthroid -) 125 mcg PO DAILY@0700 [facility] Last Admin: 10/15/18 06:13 Dose: 125 mcg Meclizine HCl (Antivert -) 12.5 mg PO DAILY PRN PRN Reason: ANXIETY Montelukast Sodium (Singulair -) 10 mg PO HS [facility] Last Admin: 10/14/18 21:40 Dose: 10 mg Non-Formulary Medication (Fluticasone/Salmeterol [Advair Hfa 115-21 Mcg Inhaler] ) 2 puff IN QID PRN PRN Reason: ASTHMA Pantoprazole Sodium (Protonix -) 40 mg PO DAILY [facility] Last Admin: 10/15/18 09:44 Dose: 40 mg Tramadol HCl (Ultram -) 50 mg PO Q8H PRN PRN Reason: PAIN LEVEL 6-10 Last Admin: 10/14/18 12:16 Dose: 50 mg - Objective Vital Signs: Vital Signs Temperature 99.6 F 10/15/18 14:21 Pulse Rate 102 H 10/15/18 14:21 Respiratory Rate 18 10/15/18 14:21 Blood Pressure 117/87 10/15/18 14:21 O2 Sat by Pulse Oximetry (%) 97 10/15/18 08:17 Constitutional: Yes: Calm Eyes: Yes: PERRL Neck: Yes: Supple Cardiovascular: Yes: Regular Rate and Rhythm Respiratory: Yes: CTA Bilaterally Gastrointestinal: Yes: Normal Bowel Sounds, Soft Labs: CBC, BMP 10/15/18 10:33 10/15/18 10:33 INR, PTT INR 1.65 (0.83-1.09) H 10/13/18 06:05 Problem List - Problems (1) Atrial fibrillation Code(s): I48.91 - UNSPECIFIED ATRIAL FIBRILLATION (2) Complicated UTI (urinary tract infection) Code(s): N39.0 - URINARY TRACT INFECTION, SITE NOT SPECIFIED (3) SHARON (acute kidney injury) Code(s): N17.9 - ACUTE KIDNEY FAILURE, UNSPECIFIED Assessment/Plan Pt with AF, HTN admitted with Fever, Leukocytosis, UTI Moxifloxacin and PCN allergy Gram Negative Bacteremia Micro amended c/s - GNR Continue CTX Awaiting Urology evaluation.
[2018-10-15] MEDS: MONTELUKAST NA 10 MG TABLET PO SCH (21:21)
[2018-10-15] MEDS: ATORVASTATIN CA 10 MG TABLET (FP) PO SCH (21:21)
[2018-10-16 06:30] LABS: BASO % 0.2 % (0-2.0); EOS % 4.1 % (0-4.5); HEMATOCRIT 36.1 % (32.4-45.2); HEMOGLOBIN 11.5 GM/dL (10.7-15.3); LYMPH % 12.5 % (8-40); MCH 33.8 pg (25.7-33.7); MEAN CELL VOLUME 105.8 fl (80-96); MEAN PLT VOLUME 8.4 fl (7.5-11.1); MONO % 10.3 % (3.8-10.2); NEUT % 72.9 % (42.8-82.8); PLATELET COUNT 190 K/MM3 (134-434); RBC 3.41 M/mm3 (3.60-5.2); RDW 13.9 % (11.6-15.6); WHITE BLOOD COUNT 13.2 K/mm3 (4.0-10.0)
[2018-10-16] MEDS: LEVOTHYROXINE NA 125 MCG TABLET (FP) PO SCH (06:51)
[2018-10-16 07:05] LABS: ANION GAP 9 MMOL/L (8-16); BLOOD UREA NITROGEN 38 mg/dL (7-18); CALCIUM 8.6 mg/dL (8.5-10.1); CHLORIDE 102 mmol/L (98-107); CO2 25 mmol/L (21-32); CREATININE 1.7 mg/dL (0.55-1.3); GLUCOSE,RANDOM 108 mg/dL (74-106); POTASSIUM 3.9 mmol/L (3.5-5.1); SODIUM 135 mmol/L (136-145)
[2018-10-16] MEDS: ALBUTEROL SO4 2.5/IPRATROPIUM 0.5 INH SOL 3 ML VIAL.NEB. NEB SCH ×4 (07:20→20:26)
[2018-10-16] MEDS ORDERED: DEXTROSE 5%-WATER 100 ML IVPB ONE (09:00)
[2018-10-16] MEDS ORDERED: PT OWN MED DRAWER 7, Y5N ONE (09:10)
--- NOTE | 2018-10-16 09:20 | CONSULT ---
Consult - text type - Consultation Consultation Note: CC: urosepsis with right moderate hydronephrosis hpi: Patient with history of uti and sepsis with leukocytosis. Patient is currently afebrile with improving leukocytosis on Ceftriaxone. The patient denies nausea or vomiting and reports much improved right flank pain. vss; afeb abd-soft nontender with minimal right CVAT ct scan and labs/cultures reviewed discussed with Dr. Gonzalez. imp urosepsis right hydronephrosis without evidence of obstructing stone mild renal insufficiency plan continue antibiotics consider repeating CT scan if clinical situation changes 20 minutes spent with patient and medical staff
[2018-10-16] MEDS: APIXABAN 2.5 MG TABLET PO SCH ×2 (09:24→21:42)
[2018-10-16] MEDS: ALLOPURINOL 100 MG TABLET (FP) PO SCH (09:24)
[2018-10-16] MEDS: PANTOPRAZOLE 40 MG TABLET (FP) PO SCH (09:24)
[2018-10-16] MEDS: CEFTRIAXONE 2 GM in DEXTROSE 5%-WATER 100 ML IVPB SCH (09:24)
[2018-10-16] MEDS: DOCUSATE SODIUM 100 MG CAPSULE (FP) PO SCH ×2 (09:24→21:42)
[2018-10-16] MEDS: ARTIFICIAL TEARS (POLYVINYL ALCOHOL) OPTH DROPS OD SCH ×4 (09:25→21:42)
--- NOTE | 2018-10-16 10:28 | PN ---
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 Reports no BM since Friday. C/o pain in b/l LEs. Vital Signs Period Temp Pulse Resp BP Sys/Peck Pulse Ox Last 24 Hr 97.8 F-99.6 F 89-108 17-20 117-134/80-89 97 CBC, BMP 10/16/18 05:30 10/16/18 05:30 HEENT- Normocephalic Neck-supple Lungs- CTAB Heart- S1/S2 Abd- soft, nt, Musc- Rt flank tenderness on palpation Ext- No LE edema Active Medications Acetaminophen (Tylenol -) 650 mg PO Q4H PRN PRN Reason: PAIN LEVEL 1-5 Last Admin: 10/15/18 09:04 Dose: 650 mg Albuterol/Ipratropium (Duoneb -) 1 amp NEB RQID [facility] Last Admin: 10/15/18 20:46 Dose: 1 amp Allopurinol (Zyloprim -) 100 mg PO DAILY [facility] Last Admin: 10/16/18 09:24 Dose: 100 mg Apixaban (Eliquis -) 2.5 mg PO BID [facility] Last Admin: 10/16/18 09:24 Dose: 2.5 mg Artificial Tears (Artificial Tears) 1 drop OD QID [facility] Last Admin: 10/16/18 09:25 Dose: 1 drop Atorvastatin Calcium (Lipitor -) 10 mg PO HS [facility] Last Admin: 10/15/18 21:21 Dose: 10 mg Baclofen (Lioresal -) 10 mg PO DAILY PRN PRN Reason: SPASMS Diltiazem HCl (Cardizem Cd -) 120 mg PO DAILY [facility] Last Admin: 10/16/18 09:24 Dose: 120 mg Docusate Sodium (Colace -) 100 mg PO BID [facility] Last Admin: 10/16/18 09:24 Dose: 100 mg Ceftriaxone Sodium 2 gm/ (Dextrose) 100 mls @ 200 mls/hr IVPB DAILY [facility] Last Admin: 10/16/18 09:24 Dose: 200 mls/hr Sodium Chloride (1/2 Normal Saline) 1,000 mls @ 60 mls/hr IV ASDIR [facility] Last Admin: 10/15/18 14:09 Dose: Not Given Levothyroxine Sodium (Synthroid -) 125 mcg PO DAILY@0700 [facility] Last Admin: 10/16/18 06:51 Dose: 125 mcg Meclizine HCl (Antivert -) 12.5 mg PO DAILY PRN PRN Reason: ANXIETY Montelukast Sodium (Singulair -) 10 mg PO HS [facility] Last Admin: 10/15/18 21:21 Dose: 10 mg Non-Formulary Medication (Fluticasone/Salmeterol [Advair Hfa 115-21 Mcg Inhaler] ) 2 puff IN QID PRN PRN Reason: ASTHMA Pantoprazole Sodium (Protonix -) 40 mg PO DAILY [facility] Last Admin: 10/16/18 09:24 Dose: 40 mg Tramadol HCl (Ultram -) 50 mg PO Q8H PRN PRN Reason: PAIN LEVEL 6-10 Last Admin: 10/14/18 12:16 Dose: 50 mg # sepsis/uro sepsis hydronephrosis Afebrile WBC improving- now 13.2 urology consult appreciated Continue IV ABX per ID #Pain Continue Baclofen and Tramadol PRN #Constipation Continue Colace BID # Afib continue NOAC # CHF Continue AC Hold spironolactone/ HCTZ due to elevated creatinine No change in renal function #hypothyroid continue synthroid # HTN- BP stable continue home meds # HX CVA stable Problem List - Problems (1) Sepsis Code(s): A41.9 - SEPSIS, UNSPECIFIED ORGANISM Qualifiers: Sepsis type: sepsis due to unspecified organism Qualified Code(s): A41.9 - Sepsis, unspecified organism (2) Complicated UTI (urinary tract infection) Code(s): N39.0 - URINARY TRACT INFECTION, SITE NOT SPECIFIED (3) Left flank pain Code(s): R10.9 - UNSPECIFIED ABDOMINAL PAIN (4) SHARON (acute kidney injury) Code(s): N17.9 - ACUTE KIDNEY FAILURE, UNSPECIFIED (5) Arthralgia Code(s): M25.50 - PAIN IN UNSPECIFIED JOINT Qualifiers: Joint pain location: unspecified Qualified Code(s): M25.50 - Pain in unspecified joint (6) Atrial fibrillation Code(s): I48.91 - UNSPECIFIED ATRIAL FIBRILLATION (7) CHF (congestive heart failure) Code(s): I50.9 - HEART FAILURE, UNSPECIFIED (8) COPD (chronic obstructive pulmonary disease) Code(s): J44.9 - CHRONIC OBSTRUCTIVE PULMONARY DISEASE, UNSPECIFIED (9) Fever Code(s): R50.9 - FEVER, UNSPECIFIED (10) Leukocytosis Code(s): D72.829 - ELEVATED WHITE BLOOD CELL COUNT, UNSPECIFIED (11) Osteoarthritis Code(s): M19.90 - UNSPECIFIED OSTEOARTHRITIS, UNSPECIFIED SITE Qualifiers: Osteoarthritis location: knee Osteoarthritis type: primary Laterality: left Qualified Code(s): M17.12 - Unilateral primary osteoarthritis, left knee (12) UTI (urinary tract infection) Code(s): N39.0 - URINARY TRACT INFECTION, SITE NOT SPECIFIED Qualifiers: Urinary tract infection type: acute cystitis Hematuria presence: without hematuria Qualified Code(s): N30.00 - Acute cystitis without hematuria
[2018-10-16] MEDS: traMADol HCL 50 MG TABLET PO PRN (11:52)
[2018-10-16] MEDS: SODIUM CHLORIDE 0.45% 1,000 ML IV SCH (12:15)
[2018-10-16] MEDS: POLYETHYLENE GLYCOL 3350 119 GM BTL PO SCH (13:58)
[2018-10-16] MEDS: ACETAMINOPHEN 325 MG TABLET (FP) PO PRN (14:09)
[2018-10-16] MEDS ORDERED: dilTIAZem HCL 25 MG/5 ML - 5 ML VIAL IVPUSH PRN (14:49)
--- NOTE | 2018-10-16 14:51 | PN ---
Progress Note, Physician History of Present Illness: seen and examined today in nad. daughter reports constipation and pt having occasional hallucinations. - Current Medication List Current Medications: Active Medications Acetaminophen (Tylenol -) 650 mg PO Q4H PRN PRN Reason: PAIN LEVEL 1-5 Last Admin: 10/16/18 14:09 Dose: 650 mg Albuterol/Ipratropium (Duoneb -) 1 amp NEB RQID [facility] Last Admin: 10/16/18 11:27 Dose: 1 amp Allopurinol (Zyloprim -) 100 mg PO DAILY [facility] Last Admin: 10/16/18 09:24 Dose: 100 mg Apixaban (Eliquis -) 2.5 mg PO BID [facility] Last Admin: 10/16/18 09:24 Dose: 2.5 mg Artificial Tears (Artificial Tears) 1 drop OD QID [facility] Last Admin: 10/16/18 13:20 Dose: 1 drop Atorvastatin Calcium (Lipitor -) 10 mg PO HS [facility] Last Admin: 10/15/18 21:21 Dose: 10 mg Baclofen (Lioresal -) 10 mg PO DAILY PRN PRN Reason: SPASMS Diltiazem HCl (Cardizem Cd -) 120 mg PO DAILY [facility] Last Admin: 10/16/18 09:24 Dose: 120 mg Docusate Sodium (Colace -) 100 mg PO BID [facility] Last Admin: 10/16/18 09:24 Dose: 100 mg Ceftriaxone Sodium 2 gm/ (Dextrose) 100 mls @ 200 mls/hr IVPB DAILY [facility] Last Admin: 10/16/18 09:24 Dose: 200 mls/hr Sodium Chloride (1/2 Normal Saline) 1,000 mls @ 60 mls/hr IV ASDIR [facility] Last Admin: 10/16/18 12:15 Dose: 60 mls/hr Levothyroxine Sodium (Synthroid -) 125 mcg PO DAILY@0700 [facility] Last Admin: 10/16/18 06:51 Dose: 125 mcg Meclizine HCl (Antivert -) 12.5 mg PO DAILY PRN PRN Reason: ANXIETY Montelukast Sodium (Singulair -) 10 mg PO HS [facility] Last Admin: 10/15/18 21:21 Dose: 10 mg Non-Formulary Medication (Fluticasone/Salmeterol [Advair Hfa 115-21 Mcg Inhaler] ) 2 puff IN QID PRN PRN Reason: ASTHMA Pantoprazole Sodium (Protonix -) 40 mg PO DAILY [facility] Last Admin: 10/16/18 09:24 Dose: 40 mg Polyethylene Glycol (Miralax (For Daily Use) -) 17 gm PO DAILY [facility] Last Admin: 10/16/18 13:58 Dose: 17 gm Tramadol HCl (Ultram -) 50 mg PO Q8H PRN PRN Reason: PAIN LEVEL 6-10 Last Admin: 10/16/18 11:52 Dose: 50 mg - Objective Vital Signs: Vital Signs Temperature 97.9 F 10/16/18 10:00 Pulse Rate 112 H 10/16/18 10:00 Respiratory Rate 20 10/16/18 10:00 Blood Pressure 141/96 10/16/18 10:00 O2 Sat by Pulse Oximetry (%) 95 10/16/18 09:00 Constitutional: Yes: No Distress, Calm Eyes: Yes: Conjunctiva Clear, EOM Intact, PERRL HENT: Yes: Atraumatic, Normocephalic Neck: Yes: Supple, Trachea Midline Cardiovascular: Yes: Tachycardia, Pulse Irregular, S1, S2. No: Regular Rate and Rhythm, Bradycardia, Bruit, JVD, Gallop, Murmur, Rub, S3, S4, Varicosities Respiratory: Yes: Regular, Diminished. No: Rales, Rhonchi, SOB, Wheezes Gastrointestinal: Yes: Normal Bowel Sounds, Soft. No: Distention, Tenderness Extremities: Yes: WNL Edema: No Peripheral Pulses WNL: Yes Neurological: Yes: Alert, Oriented Psychiatric: Yes: Alert, Oriented Labs: CBC, BMP 10/16/18 05:30 10/16/18 05:30 INR, PTT INR 1.65 (0.83-1.09) H 10/13/18 06:05 - ....Imaging Chest X-ray: Report Reviewed, Image Reviewed EKG: Report Reviewed, Image Reviewed Other: Report Reviewed, Image Reviewed (tele-AFib, periods of RVR, currently low 100s) Assessment/Plan 83 year old woman with pmh HTN, HLD, MVR, afib on eliquis and cardizem, chronic diastolic CHF, COPD, CVA, h/o GI bleed admitted with sob, fever, flank and suprapubic pain, urosepsis with afib with RVR in this setting. pt seen and examined today in nad. lying comfortably not currently sob but pts daughter notes she had sob when ambulating to the bathroom. HR has improved to 80s-90s currently after treatment for sepsis initiated. Pt does admit to palpitations in addition to sob. no chest pain. no LE edema. Afib with RVR-known h/o Afib -HR overall adequately controlled with periods of RVR -in setting of urosepsis and fever -HR currently adequately controlled -increase cardizem CD to 240mg daily -can use IV cardizem prn if HR uncontrolled -cont eliquis SOB-pulmonary edema on exam eysterday, improved today, still mild rales, expiratory wheezes -no sob lying at rest currently -likely degree of mild flash pulmonary edema in setting of afib with RVR and chronic diastolic CHF, as well as with fluid resuscitation needed for sepsis -cont Lasix IV prn, does not require currently Hold spironolactone/HCTZ for now due to elevated creatinine, low normal BP in setting of sepsis and can resume when improves.
--- NOTE | 2018-10-16 15:10 | PN ---
Progress Note (short form) - Note Progress Note: Pt well known to me. She c/o acute on chronic bilateral knee pain. She has been admitted for urosepsis. No recent trauma. I have given her multiple injections into both knees of both cortisone and gel, with limited relief. She has a history of severe, bilateral knee OA. I have recommended knee replacements in the past. She c/o pain in the knees with weight bearing activities. AVSS PE B/L knees at her baseline. No changes. + OA, mildly swollen, + tender globally No signs of acute trauma Xrays Not necessary Imp Severe bilateral knee OA, failed nonoperative treatment. Rec I am recommending knee replacement surgery, she will more seriously consider this. We can continue nonoperative treatment as an out pt. We should not give her intra articular injections in the setting of uro sepsis. Will follow PRN
--- NOTE | 2018-10-16 20:01 | PN ---
Progress Note, Physician Chief Complaint: Fever History of Present Illness: Pt is an 83 yr old female admitted with flank pain and weakness. She was well until a day ago, noted increasing flank pains. This persisted and she developed nausea and was brought to the ED where she was found to be febrile. W/Up showed leukocytosis, pyuria and was given Levaquin. Now on CTX, Urine c/s and BC (+) for EColi. Her WBC has downtrended however developed fever today. Also with confusion ? hallucinations. - Current Medication List Current Medications: Active Medications Acetaminophen (Tylenol -) 650 mg PO Q4H PRN PRN Reason: PAIN LEVEL 1-5 Last Admin: 10/16/18 14:09 Dose: 650 mg Albuterol/Ipratropium (Duoneb -) 1 amp NEB RQID [facility] Last Admin: 10/16/18 15:51 Dose: 1 amp Allopurinol (Zyloprim -) 100 mg PO DAILY [facility] Last Admin: 10/16/18 09:24 Dose: 100 mg Apixaban (Eliquis -) 2.5 mg PO BID [facility] Last Admin: 10/16/18 09:24 Dose: 2.5 mg Artificial Tears (Artificial Tears) 1 drop OD QID [facility] Last Admin: 10/16/18 17:35 Dose: 1 drop Atorvastatin Calcium (Lipitor -) 10 mg PO HS [facility] Last Admin: 18 21:21 Dose: 10 mg Baclofen (Lioresal -) 10 mg PO DAILY PRN PRN Reason: SPASMS Diltiazem HCl (Cardizem Cd -) 240 mg PO DAILY [facility] Diltiazem HCl (Cardizem Injection -) 5 mg IVPUSH Q4H PRN PRN Reason: TACHYCARDIA Docusate Sodium (Colace -) 100 mg PO BID [facility] Last Admin: 10/16/18 09:24 Dose: 100 mg Ceftriaxone Sodium 2 gm/ (Dextrose) 100 mls @ 200 mls/hr IVPB DAILY [facility] Last Admin: 10/16/18 09:24 Dose: 200 mls/hr Sodium Chloride (1/2 Normal Saline) 1,000 mls @ 60 mls/hr IV ASDIR [facility] Last Admin: 10/16/18 12:15 Dose: 60 mls/hr Levothyroxine Sodium (Synthroid -) 125 mcg PO DAILY@0700 [facility] Last Admin: 10/16/18 06:51 Dose: 125 mcg Meclizine HCl (Antivert -) 12.5 mg PO DAILY PRN PRN Reason: ANXIETY Montelukast Sodium (Singulair -) 10 mg PO HS [facility] Last Admin: 10/15/18 21:21 Dose: 10 mg Non-Formulary Medication (Fluticasone/Salmeterol [Advair Hfa 115-21 Mcg Inhaler] ) 2 puff IN QID PRN PRN Reason: ASTHMA Pantoprazole Sodium (Protonix -) 40 mg PO DAILY [facility] Last Admin: 10/16/18 09:24 Dose: 40 mg Polyethylene Glycol (Miralax (For Daily Use) -) 17 gm PO DAILY [facility] Last Admin: 10/16/18 13:58 Dose: 17 gm Tramadol HCl (Ultram -) 50 mg PO Q8H PRN PRN Reason: PAIN LEVEL 6-10 Last Admin: 10/16/18 11:52 Dose: 50 mg - Objective Vital Signs: Vital Signs Temperature 100.5 F H 10/16/18 17:59 Pulse Rate 107 H 10/16/18 18:00 Respiratory Rate 20 10/16/18 18:00 Blood Pressure 130/54 L 10/16/18 18:00 O2 Sat by Pulse Oximetry (%) 95 10/16/18 09:00 Constitutional: Yes: No Distress, Calm Eyes: Yes: PERRL Neck: Yes: Supple Cardiovascular: Yes: Regular Rate and Rhythm Respiratory: Yes: Regular, CTA Bilaterally Gastrointestinal: Yes: Normal Bowel Sounds, Soft Labs: CBC, BMP 10/16/18 05:30 10/16/18 05:30 INR, PTT INR 1.65 (0.83-1.09) H 10/13/18 06:05 Problem List - Problems (1) Atrial fibrillation Code(s): I48.91 - UNSPECIFIED ATRIAL FIBRILLATION (2) Complicated UTI (urinary tract infection) Code(s): N39.0 - URINARY TRACT INFECTION, SITE NOT SPECIFIED (3) SHARON (acute kidney injury) Code(s): N17.9 - ACUTE KIDNEY FAILURE, UNSPECIFIED Assessment/Plan Pt with AF, HTN admitted with Fever, Leukocytosis, UTI Moxifloxacin and PCN allergy EColi UTI, EColi Bacteremia Cont CTX Ribera c/s for T > 101 Repeat BC in AM
[2018-10-16] MEDS: ATORVASTATIN CA 10 MG TABLET (FP) PO SCH (21:42)
[2018-10-16] MEDS: MONTELUKAST NA 10 MG TABLET PO SCH (21:42)
[2018-10-17] MEDS: LEVOTHYROXINE NA 125 MCG TABLET (FP) PO SCH (06:33)
[2018-10-17] MEDS: ACETAMINOPHEN 325 MG TABLET (FP) PO PRN (06:33)
[2018-10-17 08:02] LABS: BASO % 0.3 % (0-2.0); EOS % 6.7 % (0-4.5); HEMATOCRIT 34.8 % (32.4-45.2); HEMOGLOBIN 11.9 GM/dL (10.7-15.3); LYMPH % 17.3 % (8-40); MCH 35.6 pg (25.7-33.7); MCHC 34.1 g/dl (32.0-36.0); MEAN CELL VOLUME 104.2 fl (80-96); MEAN PLT VOLUME 8.6 fl (7.5-11.1); MONO % 16.4 % (3.8-10.2); NEUT % 59.3 % (42.8-82.8); PLATELET COUNT 202 K/MM3 (134-434); RBC 3.34 M/mm3 (3.60-5.2); RDW 14.4 % (11.6-15.6); WHITE BLOOD COUNT 9.1 K/mm3 (4.0-10.0)
[2018-10-17] MEDS: ALBUTEROL SO4 2.5/IPRATROPIUM 0.5 INH SOL 3 ML VIAL.NEB. NEB SCH ×4 (08:05→20:17)
[2018-10-17 09:04] LABS: ALBUMIN 2.8 g/dl (3.4-5.0); ALK PHOS 95 U/L (45-117); ANION GAP 10 MMOL/L (8-16); BILIRUBIN,TOTAL 0.3 mg/dL (0.2-1); BLOOD UREA NITROGEN 29 mg/dL (7-18); CALCIUM 8.3 mg/dL (8.5-10.1); CHLORIDE 102 mmol/L (98-107); CO2 23 mmol/L (21-32); CREATININE 1.3 mg/dL (0.55-1.3); GLUCOSE,RANDOM 105 mg/dL (74-106); POTASSIUM 3.6 mmol/L (3.5-5.1); SGOT/AST 21 U/L (15-37); SGPT/ALT 21 U/L (13-61); SODIUM 135 mmol/L (136-145); TOT PROT 6.5 g/dl (6.4-8.2)
[2018-10-17] MEDS ORDERED: DEXTROSE 5%-WATER 100 ML IVPB ONE (10:26)
[2018-10-17] MEDS: ALLOPURINOL 100 MG TABLET (FP) PO SCH (11:15)
[2018-10-17] MEDS: PANTOPRAZOLE 40 MG TABLET (FP) PO SCH (11:15)
[2018-10-17] MEDS: DOCUSATE SODIUM 100 MG CAPSULE (FP) PO SCH ×2 (11:15→21:38)
[2018-10-17] MEDS: POLYETHYLENE GLYCOL 3350 119 GM BTL PO SCH ×2 (11:18→23:44)
[2018-10-17] MEDS: APIXABAN 2.5 MG TABLET PO SCH ×2 (11:18→21:38)
[2018-10-17] MEDS: CEFTRIAXONE 2 GM in DEXTROSE 5%-WATER 100 ML IVPB SCH (11:21)
[2018-10-17] MEDS: ARTIFICIAL TEARS (POLYVINYL ALCOHOL) OPTH DROPS OD SCH ×3 (11:21→21:39)
[2018-10-17] MEDS: SODIUM CHLORIDE 0.45% 1,000 ML IV SCH (13:11)
[2018-10-17] MEDS: ATORVASTATIN CA 10 MG TABLET (FP) PO SCH (21:38)
[2018-10-17] MEDS: MONTELUKAST NA 10 MG TABLET PO SCH (21:38)
--- NOTE | 2018-10-17 22:02 | PN ---
Progress Note (short form) - Note Progress Note: seen and examined in room Laying in bed comfortable episodes of confusion ? hallucinations per staff per family patient no BS in last 2 days Vital Signs Period Temp Pulse Resp BP Sys/Peck Pulse Ox Last 24 Hr 97.9 F-100.5 F 87-99 18-20 124-138/75-82 98 neck supple heart s1/S2 irreg lungs rales at right base no wheezing abd soft suprapubic tenderness / BS + ext no edema / no calf tenderness CBC, BMP 10/17/18 06:00 10/17/18 06:00 CBC, BMP 10/14/18 07:00 10/14/18 07:00 Microbiology 10/13/18 06:05 Blood - Peripheral Venous Blood Culture - Preliminary NO GROWTH OBTAINED AFTER 96 HOURS, INCUBATION TO CONTINUE FOR 1 DAYS. 10/13/18 06:05 Blood - Peripheral Venous Blood Culture - Final Escherichia Coli 10/13/18 06:35 Urine - Urine - Catheterized Urine Culture - Final Escherichia Coli CT Abd / pelvis Moderate right Hydronephrosis & mild to moderate right hydroureter Active Medications Acetaminophen (Tylenol -) 650 mg PO Q4H PRN PRN Reason: PAIN LEVEL 1-5 Last Admin: 10/17/18 06:33 Dose: 650 mg Albuterol/Ipratropium (Duoneb -) 1 amp NEB RQID [facility] [place] Last Admin: 10/17/18 20:17 Dose: 1 amp Allopurinol (Zyloprim -) 100 mg PO DAILY [facility] [place] Last Admin: 10/17/18 11:15 Dose: 100 mg Apixaban (Eliquis -) 2.5 mg PO BID [facility] [place] Last Admin: 10/17/18 21:38 Dose: 2.5 mg Artificial Tears (Artificial Tears) 1 drop OD QID [facility] [place] Last Admin: 10/17/18 21:39 Dose: 1 drop Atorvastatin Calcium (Lipitor -) 10 mg PO HS [facility] [place] Last Admin: 10/17/18 21:38 Dose: 10 mg Baclofen (Lioresal -) 10 mg PO DAILY PRN PRN Reason: SPASMS Diltiazem HCl (Cardizem Cd -) 240 mg PO DAILY [facility] [place] Last Admin: 10/17/18 11:17 Dose: 240 mg Diltiazem HCl (Cardizem Injection -) 5 mg IVPUSH Q4H PRN PRN Reason: TACHYCARDIA Docusate Sodium (Colace -) 200 mg PO BID [facility] [place] Ceftriaxone Sodium 2 gm/ (Dextrose) 100 mls @ 200 mls/hr IVPB DAILY [facility] [place] Last Admin: 10/17/18 11:21 Dose: 200 mls/hr Sodium Chloride (1/2 Normal Saline) 1,000 mls @ 60 mls/hr IV ASDIR [facility] [place] Last Admin: 10/17/18 13:11 Dose: 60 mls/hr Levothyroxine Sodium (Synthroid -) 125 mcg PO DAILY@0700 [facility] [place] Last Admin: 10/17/18 06:33 Dose: 125 mcg Meclizine HCl (Antivert -) 12.5 mg PO DAILY PRN PRN Reason: ANXIETY Montelukast Sodium (Singulair -) 10 mg PO HS [facility] [place] Last Admin: 10/17/18 21:38 Dose: 10 mg Non-Formulary Medication (Fluticasone/Salmeterol [Advair Hfa 115-21 Mcg Inhaler] ) 2 puff IN QID PRN PRN Reason: ASTHMA Pantoprazole Sodium (Protonix -) 40 mg PO DAILY [facility] [place] Last Admin: 10/17/18 11:15 Dose: 40 mg Polyethylene Glycol (Miralax (For Daily Use) -) 17 gm PO BID [facility] [place] 83 year old woman with pmh HTN, HLD, MVR, afib on eliquis and cardizem, chronic diastolic CHF, COPD, CVA, h/o GI bleed admitted with sob, fever, flank and suprapubic pain, urosepsis with afib with RVR in this setting. # sepsis/uro sepsis hydronephrosis Iv ABX urology consult # Afib continue NOAC rate control # dHF mild HF 2/2 to a.fib RVR and IV fluid IV lasix this am follow clinically - Lasix PRN follow daily weights trend renal function #hypothyroid continue synthroid # HTN continue home meds # HX CVA stable - at baseline per family Problem List - Problems (1) Sepsis Code(s): A41.9 - SEPSIS, UNSPECIFIED ORGANISM Qualifiers: Sepsis type: sepsis due to unspecified organism Qualified Code(s): A41.9 - Sepsis, unspecified organism (2) Complicated UTI (urinary tract infection) Code(s): N39.0 - URINARY TRACT INFECTION, SITE NOT SPECIFIED (3) Left flank pain Code(s): R10.9 - UNSPECIFIED ABDOMINAL PAIN (4) SHARON (acute kidney injury) Code(s): N17.9 - ACUTE KIDNEY FAILURE, UNSPECIFIED (5) Arthralgia Code(s): M25.50 - PAIN IN UNSPECIFIED JOINT Qualifiers: Joint pain location: unspecified Qualified Code(s): M25.50 - Pain in unspecified joint (6) Atrial fibrillation Code(s): I48.91 - UNSPECIFIED ATRIAL FIBRILLATION (7) CHF (congestive heart failure) Code(s): I50.9 - HEART FAILURE, UNSPECIFIED (8) COPD (chronic obstructive pulmonary disease) Code(s): J44.9 - CHRONIC OBSTRUCTIVE PULMONARY DISEASE, UNSPECIFIED (9) Fever Code(s): R50.9 - FEVER, UNSPECIFIED (10) Leukocytosis Code(s): D72.829 - ELEVATED WHITE BLOOD CELL COUNT, UNSPECIFIED (11) Osteoarthritis Code(s): M19.90 - UNSPECIFIED OSTEOARTHRITIS, UNSPECIFIED SITE Qualifiers: Osteoarthritis location: knee Osteoarthritis type: primary Laterality: left Qualified Code(s): M17.12 - Unilateral primary osteoarthritis, left knee (12) UTI (urinary tract infection) Code(s): N39.0 - URINARY TRACT INFECTION, SITE NOT SPECIFIED Qualifiers: Urinary tract infection type: acute cystitis Hematuria presence: without hematuria Qualified Code(s): N30.00 - Acute cystitis without hematuria
[2018-10-18] MEDS: DOCUSATE SODIUM 100 MG CAPSULE (FP) PO SCH ×3 (00:46→21:16)
[2018-10-18] MEDS: ACETAMINOPHEN 325 MG TABLET (FP) PO PRN ×3 (01:08→21:17)
[2018-10-18] MEDS: LEVOTHYROXINE NA 125 MCG TABLET (FP) PO SCH (06:10)
[2018-10-18 07:29] LABS: BASO % 0.1 % (0-2.0); EOS % 5.3 % (0-4.5); HEMOGLOBIN 11.4 GM/dL (10.7-15.3); LYMPH % 18.6 % (8-40); MCH 33.5 pg (25.7-33.7); MCHC 31.7 g/dl (32.0-36.0); MEAN CELL VOLUME 105.7 fl (80-96); MEAN PLT VOLUME 8.3 fl (7.5-11.1); MONO % 14.9 % (3.8-10.2); NEUT % 61.1 % (42.8-82.8); PLATELET COUNT 219 K/MM3 (134-434); RDW 14.2 % (11.6-15.6); WHITE BLOOD COUNT 13.1 K/mm3 (4.0-10.0)
[2018-10-18] MEDS: ALBUTEROL SO4 2.5/IPRATROPIUM 0.5 INH SOL 3 ML VIAL.NEB. NEB SCH ×4 (07:34→20:54)
[2018-10-18 08:06] LABS: ANION GAP 11 MMOL/L (8-16); BLOOD UREA NITROGEN 28 mg/dL (7-18); CALCIUM 8.2 mg/dL (8.5-10.1); CHLORIDE 105 mmol/L (98-107); CO2 21 mmol/L (21-32); CREATININE 1.3 mg/dL (0.55-1.3); GLUCOSE,RANDOM 117 mg/dL (74-106); POTASSIUM 3.7 mmol/L (3.5-5.1); SODIUM 136 mmol/L (136-145)
[2018-10-18] MEDS ORDERED: DEXTROSE 5%-WATER 100 ML IVPB ONE (08:53)
[2018-10-18] MEDS: CEFTRIAXONE 2 GM in DEXTROSE 5%-WATER 100 ML IVPB SCH (09:23)
[2018-10-18] MEDS: PANTOPRAZOLE 40 MG TABLET (FP) PO SCH (09:27)
[2018-10-18] MEDS: APIXABAN 2.5 MG TABLET PO SCH ×2 (09:28→21:16)
[2018-10-18] MEDS: ALLOPURINOL 100 MG TABLET (FP) PO SCH (09:28)
[2018-10-18] MEDS: POLYETHYLENE GLYCOL 3350 119 GM BTL PO SCH (09:30)
[2018-10-18] MEDS: ARTIFICIAL TEARS (POLYVINYL ALCOHOL) OPTH DROPS OD SCH ×3 (09:30→17:29)
[2018-10-18 11:30] LABS: ANISOCYTOSIS 1+; MACROCYTOSIS 1+
--- NOTE | 2018-10-18 13:27 | PN ---
Progress Note (short form) - Note Progress Note: seen and examined in room reports having loose stool less abdominal pain / but still with right flank pain will repeat CT in am Vital Signs Period Temp Pulse Resp BP Sys/Peck Pulse Ox Last 24 Hr 97.9 F-101.3 F 82-99 18-22 126-136/55-79 96-96 neck supple heart s1/S2 irreg lungs rales at right base no wheezing abd soft / mildly distended right flank tenderness / BS + ext no edema / no calf tenderness CBC, BMP 10/18/18 06:00 10/18/18 06:00 CBC, BMP 10/17/18 06:00 10/17/18 06:00 Microbiology 10/13/18 06:05 Blood - Peripheral Venous Blood Culture - Final NO GROWTH AFTER 5 DAYS INCUBATION 10/13/18 06:05 Blood - Peripheral Venous Blood Culture - Final Escherichia Coli 10/13/18 06:35 Urine - Urine - Catheterized Urine Culture - Final Escherichia Coli CT Abd / pelvis Moderate right Hydronephrosis & mild to moderate right hydroureter Active Medications Acetaminophen (Tylenol -) 650 mg PO Q4H PRN PRN Reason: PAIN LEVEL 1-5 Last Admin: 10/18/18 06:09 Dose: 650 mg Albuterol/Ipratropium (Duoneb -) 1 amp NEB RQID [facility] Last Admin: 10/18/18 11:22 Dose: 1 amp Allopurinol (Zyloprim -) 100 mg PO DAILY [facility] Last Admin: 10/18/18 09:28 Dose: 100 mg Apixaban (Eliquis -) 2.5 mg PO BID [facility] Last Admin: 10/18/18 09:28 Dose: 2.5 mg Artificial Tears (Artificial Tears) 1 drop OD QID [facility] Last Admin: 10/18/18 09:30 Dose: 1 drop Atorvastatin Calcium (Lipitor -) 10 mg PO HS [facility] Last Admin: 10/17/18 21:38 Dose: 10 mg Baclofen (Lioresal -) 10 mg PO DAILY PRN PRN Reason: SPASMS Diltiazem HCl (Cardizem Cd -) 240 mg PO DAILY [facility] Last Admin: 10/18/18 09:27 Dose: 240 mg Diltiazem HCl (Cardizem Injection -) 5 mg IVPUSH Q4H PRN PRN Reason: TACHYCARDIA Docusate Sodium (Colace -) 200 mg PO HS [facility] Ceftriaxone Sodium 2 gm/ (Dextrose) 100 mls @ 200 mls/hr IVPB DAILY [facility] Last Admin: 10/18/18 09:23 Dose: 200 mls/hr Sodium Chloride (1/2 Normal Saline) 1,000 mls @ 60 mls/hr IV ASDIR [facility] Last Admin: 10/17/18 13:11 Dose: 60 mls/hr Levothyroxine Sodium (Synthroid -) 125 mcg PO DAILY@0700 [facility] Last Admin: 10/18/18 06:10 Dose: 125 mcg Meclizine HCl (Antivert -) 12.5 mg PO DAILY PRN PRN Reason: ANXIETY Montelukast Sodium (Singulair -) 10 mg PO HS [facility] Last Admin: 10/17/18 21:38 Dose: 10 mg Non-Formulary Medication (Fluticasone/Salmeterol [Advair Hfa 115-21 Mcg Inhaler] ) 2 puff IN QID PRN PRN Reason: ASTHMA Pantoprazole Sodium (Protonix -) 40 mg PO DAILY [facility] Last Admin: 10/18/18 09:27 Dose: 40 mg 83 year old woman with pmh HTN, HLD, MVR, afib on eliquis and cardizem, chronic diastolic CHF, COPD, CVA, h/o GI bleed admitted with sob, fever, flank and suprapubic pain, urosepsis with afib with RVR in this setting. # sepsis/uro sepsis hydronephrosis - persist flamk pain repeat CT in am Iv ABX per ID urology consult # Afib continue NOAC rate control # dHF mild HF 2/2 to a.fib RVR and IV fluid IV lasix this am follow clinically - Lasix PRN follow daily weights trend renal function #hypothyroid continue synthroid # HTN continue home meds # HX CVA stable - at baseline per family Problem List - Problems (1) Sepsis Code(s): A41.9 - SEPSIS, UNSPECIFIED ORGANISM Qualifiers: Sepsis type: sepsis due to unspecified organism Qualified Code(s): A41.9 - Sepsis, unspecified organism (2) Complicated UTI (urinary tract infection) Code(s): N39.0 - URINARY TRACT INFECTION, SITE NOT SPECIFIED (3) Left flank pain Code(s): R10.9 - UNSPECIFIED ABDOMINAL PAIN (4) SHAORN (acute kidney injury) Code(s): N17.9 - ACUTE KIDNEY FAILURE, UNSPECIFIED (5) Arthralgia Code(s): M25.50 - PAIN IN UNSPECIFIED JOINT Qualifiers: Joint pain location: unspecified Qualified Code(s): M25.50 - Pain in unspecified joint (6) Atrial fibrillation Code(s): I48.91 - UNSPECIFIED ATRIAL FIBRILLATION (7) CHF (congestive heart failure) Code(s): I50.9 - HEART FAILURE, UNSPECIFIED (8) COPD (chronic obstructive pulmonary disease) Code(s): J44.9 - CHRONIC OBSTRUCTIVE PULMONARY DISEASE, UNSPECIFIED (9) Fever Code(s): R50.9 - FEVER, UNSPECIFIED (10) Leukocytosis Code(s): D72.829 - ELEVATED WHITE BLOOD CELL COUNT, UNSPECIFIED (11) Osteoarthritis Code(s): M19.90 - UNSPECIFIED OSTEOARTHRITIS, UNSPECIFIED SITE Qualifiers: Osteoarthritis location: knee Osteoarthritis type: primary Laterality: left Qualified Code(s): M17.12 - Unilateral primary osteoarthritis, left knee (12) UTI (urinary tract infection) Code(s): N39.0 - URINARY TRACT INFECTION, SITE NOT SPECIFIED Qualifiers: Urinary tract infection type: acute cystitis Hematuria presence: without hematuria Qualified Code(s): N30.00 - Acute cystitis without hematuria
[2018-10-18] MEDS: SODIUM CHLORIDE 0.45% 1,000 ML IV SCH (17:12)
[2018-10-18] MEDS: ATORVASTATIN CA 10 MG TABLET (FP) PO SCH (21:16)
[2018-10-18] MEDS: MONTELUKAST NA 10 MG TABLET PO SCH (21:16)
[2018-10-19] MEDS: LEVOTHYROXINE NA 125 MCG TABLET (FP) PO SCH (06:15)
[2018-10-19 07:14] LABS: BASO % 0.4 % (0-2.0); EOS % 6.5 % (0-4.5); HEMATOCRIT 37.7 % (32.4-45.2); HEMOGLOBIN 11.9 GM/dL (10.7-15.3); LYMPH % 14.1 % (8-40); MCH 33.6 pg (25.7-33.7); MCHC 31.6 g/dl (32.0-36.0); MEAN CELL VOLUME 106.2 fl (80-96); MEAN PLT VOLUME 8.3 fl (7.5-11.1); MONO % 9.6 % (3.8-10.2); NEUT % 69.4 % (42.8-82.8); PLATELET COUNT 268 K/MM3 (134-434); RBC 3.55 M/mm3 (3.60-5.2); RDW 14.3 % (11.6-15.6); WHITE BLOOD COUNT 11.7 K/mm3 (4.0-10.0)
[2018-10-19 07:44] LABS: ANION GAP 9 MMOL/L (8-16); BLOOD UREA NITROGEN 21 mg/dL (7-18); CALCIUM 8.6 mg/dL (8.5-10.1); CHLORIDE 109 mmol/L (98-107); CO2 23 mmol/L (21-32); CREATININE 1.2 mg/dL (0.55-1.3); GLUCOSE,RANDOM 106 mg/dL (74-106); SODIUM 140 mmol/L (136-145)
[2018-10-19] MEDS: ALBUTEROL SO4 2.5/IPRATROPIUM 0.5 INH SOL 3 ML VIAL.NEB. NEB SCH ×3 (08:24→20:09)
[2018-10-19] MEDS ORDERED: DEXTROSE 5%-WATER 100 ML IVPB ONE (09:27)
[2018-10-19] MEDS: PANTOPRAZOLE 40 MG TABLET (FP) PO SCH (10:00)
[2018-10-19] MEDS: APIXABAN 2.5 MG TABLET PO SCH ×2 (10:00→21:58)
[2018-10-19] MEDS: CEFTRIAXONE 2 GM in DEXTROSE 5%-WATER 100 ML IVPB SCH (10:01)
[2018-10-19] MEDS: ALLOPURINOL 100 MG TABLET (FP) PO SCH (10:01)
[2018-10-19] MEDS: ARTIFICIAL TEARS (POLYVINYL ALCOHOL) OPTH DROPS OD SCH ×4 (10:02→21:58)
[2018-10-19 13:58] LABS: ANISOCYTOSIS 1+; MACROCYTOSIS 1+
[2018-10-19] MEDS: SODIUM CHLORIDE 0.45% 1,000 ML IV SCH (16:58)
--- NOTE | 2018-10-19 17:59 | PN ---
Progress Note, Physician Chief Complaint: The patient complains of right flank pain. She denies palpitation, SOB at rest or chest pain. Tele was discontinued. History of Present Illness: 83 year old woman with a PMHx of HTN, HLD, MVR, afib on Eliquis, CVA, chronic diastolic CHF, COPD, GI bleed admitted with sob, fever, flank and suprapubic pain, urosepsis and afib with RVR in this setting. Ventricular rate is well controlled and tele was discontinued. Afib with RVR-known h/o Afib -HR overall adequately controlled with periods of RVR -in setting of urosepsis and fever -HR currently adequately controlled -increase cardizem CD to 240mg daily -can use IV cardizem prn if HR uncontrolled -cont eliquis SOB-pulmonary edema on exam eysterday, improved today, still mild rales, expiratory wheezes -no sob lying at rest currently -likely degree of mild flash pulmonary edema in setting of afib with RVR and chronic diastolic CHF, as well as with fluid resuscitation needed for sepsis -cont Lasix IV prn, does not require currently Hold spironolactone/HCTZ for now due to elevated creatinine, low normal BP in setting of sepsis and can resume when improves. - Current Medication List Current Medications: Active Medications Acetaminophen (Tylenol -) 650 mg PO Q4H PRN PRN Reason: PAIN LEVEL 1-5 Last Admin: 10/18/18 21:17 Dose: 650 mg Albuterol/Ipratropium (Duoneb -) 1 amp NEB RQID [facility] Last Admin: 10/19/18 12:24 Dose: 1 amp Allopurinol (Zyloprim -) 100 mg PO DAILY [facility] Last Admin: 10/19/18 10:01 Dose: 100 mg Apixaban (Eliquis -) 2.5 mg PO BID [facility] Last Admin: 10/19/18 10:00 Dose: 2.5 mg Artificial Tears (Artificial Tears) 1 drop OD QID [facility] Last Admin: 10/19/18 17:23 Dose: 1 drop Atorvastatin Calcium (Lipitor -) 10 mg PO HS [facility] Last Admin: 10/18/18 21:16 Dose: 10 mg Baclofen (Lioresal -) 10 mg PO DAILY PRN PRN Reason: SPASMS Diltiazem HCl (Cardizem Cd -) 240 mg PO DAILY [facility] Last Admin: 10/19/18 10:00 Dose: 240 mg Diltiazem HCl (Cardizem Injection -) 5 mg IVPUSH Q4H PRN PRN Reason: TACHYCARDIA Docusate Sodium (Colace -) 200 mg PO HS [facility] Last Admin: 10/18/18 21:16 Dose: 200 mg Ceftriaxone Sodium 2 gm/ (Dextrose) 100 mls @ 200 mls/hr IVPB DAILY [facility] Last Admin: 10/19/18 10:01 Dose: 200 mls/hr Levothyroxine Sodium (Synthroid -) 125 mcg PO DAILY@0700 [facility] Last Admin: 10/19/18 06:15 Dose: 125 mcg Meclizine HCl (Antivert -) 12.5 mg PO DAILY PRN PRN Reason: ANXIETY Montelukast Sodium (Singulair -) 10 mg PO HS [facility] Last Admin: 10/18/18 21:16 Dose: 10 mg Pantoprazole Sodium (Protonix -) 40 mg PO DAILY [facility] Last Admin: 10/19/18 10:00 Dose: 40 mg - Objective Vital Signs: Vital Signs Temperature 98.1 F 10/19/18 13:44 Pulse Rate 81 10/19/18 13:44 Respiratory Rate 20 10/19/18 13:44 Blood Pressure 110/61 10/19/18 13:44 O2 Sat by Pulse Oximetry (%) 99 10/19/18 09:00 General: Well developed. Obese. No acute distress. Head: Normocephalic. Atraumatic, Eyes: PERRLA, EOMI. Sclerae anicteric. Conjunctivae clear. Neck: Supple. No JVD. No bruits. Heart: Normal S1, S2: Irregular rhythm and rate. No murmur. No gallop or rub. Lungs: Symmetrical air entry. Bibasilar crackle disappears after deep inspiration. No wheezing or rhonchi. Abdomen: Soft. Bowel sound positive. Non tender. No masses. Extremities: No edema. No clubbing or cyanosis. Labs: CBC, BMP 10/19/18 06:45 10/19/18 06:45 INR, PTT INR 1.65 (0.83-1.09) H 10/13/18 06:05 Assessment/Plan 83 year old woman with a PMHx of HTN, HLD, MVR, afib on Eliquis, CVA, chronic diastolic CHF, COPD, GI bleed admitted with sob, fever, flank and suprapubic pain, urosepsis and afib with RVR in this setting. Ventricular rate is well controlled and tele was discontinued. 1) Persistent Afib with controlled ventricular respons. -continue cardizem CD to 240mg daily -continue Eliquis 2.5 mg BID for stroke prevention. 2) Acute diastolic CHF: SOB-with evidence of pulmonary edema. Physical signs of fluid overload resolved (Bibasilar crackle disappears after deep inspiration). -likely degree of mild flash pulmonary edema in setting of rapid afib and chronic diastolic CHF, as well as with fluid resuscitation needed for sepsis -Should restart PO Lasix 40 mg daily as maintenance dose. -Monitor renal function. Spironolactone/HCTZ should be discontinued. Please call us for reconsult as needed.
--- NOTE | 2018-10-19 19:46 | PN ---
Progress Note, Physician Chief Complaint: Fever History of Present Illness: Pt is an 83 yr old female admitted with flank pain and weakness. She was well until a day ago, noted increasing flank pains. This persisted and she developed nausea and was brought to the ED where she was found to be febrile. W/Up showed leukocytosis, pyuria and was given Levaquin. Now on CTX, Urine c/s and BC (+) for EColi. Her WBC has downtrended however has had intermittent fevers. Repeat BC NGTD. - Current Medication List Current Medications: Active Medications Acetaminophen (Tylenol -) 650 mg PO Q4H PRN PRN Reason: PAIN LEVEL 1-5 Last Admin: 10/18/18 21:17 Dose: 650 mg Albuterol/Ipratropium (Duoneb -) 1 amp NEB RQID [facility] Last Admin: 10/19/18 12:24 Dose: 1 amp Allopurinol (Zyloprim -) 100 mg PO DAILY [facility] Last Admin: 10/19/18 10:01 Dose: 100 mg Apixaban (Eliquis -) 2.5 mg PO BID [facility] Last Admin: 10/19/18 10:00 Dose: 2.5 mg Artificial Tears (Artificial Tears) 1 drop OD QID [facility] Last Admin: 10/19/18 17:23 Dose: 1 drop Atorvastatin Calcium (Lipitor -) 10 mg PO HS [facility] Last Admin: 10/18/18 21:16 Dose: 10 mg Baclofen (Lioresal -) 10 mg PO DAILY PRN PRN Reason: SPASMS Diltiazem HCl (Cardizem Cd -) 240 mg PO DAILY [facility] Last Admin: 10/19/18 10:00 Dose: 240 mg Diltiazem HCl (Cardizem Injection -) 5 mg IVPUSH Q4H PRN PRN Reason: TACHYCARDIA Docusate Sodium (Colace -) 200 mg PO HS [facility] Last Admin: 10/18/18 21:16 Dose: 200 mg Ceftriaxone Sodium 2 gm/ (Dextrose) 100 mls @ 200 mls/hr IVPB DAILY [facility] Last Admin: 10/19/18 10:01 Dose: 200 mls/hr Levothyroxine Sodium (Synthroid -) 125 mcg PO DAILY@0700 [facility] Last Admin: 10/19/18 06:15 Dose: 125 mcg Meclizine HCl (Antivert -) 12.5 mg PO DAILY PRN PRN Reason: ANXIETY Montelukast Sodium (Singulair -) 10 mg PO HS [facility] Last Admin: 10/18/18 21:16 Dose: 10 mg Pantoprazole Sodium (Protonix -) 40 mg PO DAILY [facility] Last Admin: 10/19/18 10:00 Dose: 40 mg - Objective Vital Signs: Vital Signs Temperature 99.2 F 10/19/18 16:55 Pulse Rate 85 10/19/18 16:55 Respiratory Rate 20 10/19/18 16:55 Blood Pressure 114/75 10/19/18 16:55 O2 Sat by Pulse Oximetry (%) 99 10/19/18 09:00 Constitutional: Yes: No Distress Eyes: Yes: PERRL Neck: Yes: Supple Cardiovascular: Yes: Regular Rate and Rhythm Respiratory: Yes: Rhonchi Gastrointestinal: Yes: Normal Bowel Sounds, Soft. No: Tenderness Labs: CBC, BMP 10/19/18 06:45 10/19/18 06:45 INR, PTT INR 1.65 (0.83-1.09) H 10/13/18 06:05 Problem List - Problems (1) Atrial fibrillation Code(s): I48.91 - UNSPECIFIED ATRIAL FIBRILLATION (2) Complicated UTI (urinary tract infection) Code(s): N39.0 - URINARY TRACT INFECTION, SITE NOT SPECIFIED (3) SHARON (acute kidney injury) Code(s): N17.9 - ACUTE KIDNEY FAILURE, UNSPECIFIED Assessment/Plan Pt with AF, HTN admitted with Fever, Leukocytosis, UTI Moxifloxacin and PCN allergy EColi UTI, EColi Bacteremia Cont CTX Repeat CT Scan done - await results.
--- NOTE | 2018-10-19 20:55 | PN ---
Progress Note (short form) - Note Progress Note: seen and examined in room reports feeling better today less abdominal pain repeat CT done this am Vital Signs Period Temp Pulse Resp BP Sys/Peck Pulse Ox Last 24 Hr 97.6 F-99.2 F 67-85 20-21 110-126/48-75 98-99 neck supple heart s1/S2 irreg lungs grossly clear / poor inspiration no wheezing abd soft / mildly distended right flank tenderness / BS + ext no edema / no calf tenderness CBC, BMP 10/19/18 06:45 10/19/18 06:45 CBC, BMP 10/18/18 06:00 10/18/18 06:00 CBC, BMP 10/17/18 06:00 10/17/18 06:00 Microbiology 10/18/18 06:00 Blood - Peripheral Venous Blood Culture - Preliminary NO GROWTH OBTAINED AFTER 24 HOURS, INCUBATION TO CONTINUE FOR 4 DAYS. 10/18/18 06:00 Blood - Peripheral Venous Blood Culture - Preliminary NO GROWTH OBTAINED AFTER 24 HOURS, INCUBATION TO CONTINUE FOR 4 DAYS. 10/13/18 06:05 Blood - Peripheral Venous Blood Culture - Final NO GROWTH AFTER 5 DAYS INCUBATION 10/13/18 06:05 Blood - Peripheral Venous Blood Culture - Final Escherichia Coli 10/13/18 06:35 Urine - Urine - Catheterized Urine Culture - Final Escherichia Coli initial CT : CT Abd / pelvis Moderate right Hydronephrosis & mild to moderate right hydroureter repeat CT 10/19/18 results still pending Active Medications Acetaminophen (Tylenol -) 650 mg PO Q4H PRN PRN Reason: PAIN LEVEL 1-5 Last Admin: 10/18/18 21:17 Dose: 650 mg Albuterol/Ipratropium (Duoneb -) 1 amp NEB RQID [facility] Last Admin: 10/19/18 20:09 Dose: 1 amp Allopurinol (Zyloprim -) 100 mg PO DAILY [facility] Last Admin: 10/19/18 10:01 Dose: 100 mg Apixaban (Eliquis -) 2.5 mg PO BID [facility] Last Admin: 10/19/18 10:00 Dose: 2.5 mg Artificial Tears (Artificial Tears) 1 drop OD QID [facility] Last Admin: 10/19/18 17:23 Dose: 1 drop Atorvastatin Calcium (Lipitor -) 10 mg PO HS [facility] Last Admin: 10/18/18 21:16 Dose: 10 mg Baclofen (Lioresal -) 10 mg PO DAILY PRN PRN Reason: SPASMS Diltiazem HCl (Cardizem Cd -) 240 mg PO DAILY [facility] Last Admin: 10/19/18 10:00 Dose: 240 mg Diltiazem HCl (Cardizem Injection -) 5 mg IVPUSH Q4H PRN PRN Reason: TACHYCARDIA Docusate Sodium (Colace -) 200 mg PO HS [facility] Last Admin: 10/18/18 21:16 Dose: 200 mg Ceftriaxone Sodium 2 gm/ (Dextrose) 100 mls @ 200 mls/hr IVPB DAILY [facility] Last Admin: 10/19/18 10:01 Dose: 200 mls/hr Levothyroxine Sodium (Synthroid -) 125 mcg PO DAILY@0700 [facility] Last Admin: 10/19/18 06:15 Dose: 125 mcg Meclizine HCl (Antivert -) 12.5 mg PO DAILY PRN PRN Reason: ANXIETY Montelukast Sodium (Singulair -) 10 mg PO HS [facility] Last Admin: 10/18/18 21:16 Dose: 10 mg Pantoprazole Sodium (Protonix -) 40 mg PO DAILY [facility] Last Admin: 10/19/18 10:00 Dose: 40 mg 83 year old woman with pmh HTN, HLD, MVR, afib on eliquis and cardizem, chronic diastolic CHF, COPD, CVA, h/o GI bleed admitted with sob, fever, flank and suprapubic pain, urosepsis with afib with RVR in this setting. # sepsis/uro sepsis hydronephrosis - persist flamk pain repeat CT --pending results Iv ABX per ID urology consult # Afib continue NOAC rate control # dHF mild HF 2/2 to a.fib RVR and IV fluid IV lasix this am follow clinically - Lasix PRN follow daily weights trend renal function #hypothyroid continue synthroid # HTN continue home meds # HX CVA stable - at baseline per family Problem List - Problems (1) Sepsis Code(s): A41.9 - SEPSIS, UNSPECIFIED ORGANISM Qualifiers: Sepsis type: sepsis due to unspecified organism Qualified Code(s): A41.9 - Sepsis, unspecified organism (2) Complicated UTI (urinary tract infection) Code(s): N39.0 - URINARY TRACT INFECTION, SITE NOT SPECIFIED (3) Left flank pain Code(s): R10.9 - UNSPECIFIED ABDOMINAL PAIN (4) SHARON (acute kidney injury) Code(s): N17.9 - ACUTE KIDNEY FAILURE, UNSPECIFIED (5) Arthralgia Code(s): M25.50 - PAIN IN UNSPECIFIED JOINT Qualifiers: Joint pain location: unspecified Qualified Code(s): M25.50 - Pain in unspecified joint (6) Atrial fibrillation Code(s): I48.91 - UNSPECIFIED ATRIAL FIBRILLATION (7) CHF (congestive heart failure) Code(s): I50.9 - HEART FAILURE, UNSPECIFIED (8) COPD (chronic obstructive pulmonary disease) Code(s): J44.9 - CHRONIC OBSTRUCTIVE PULMONARY DISEASE, UNSPECIFIED (9) Fever Code(s): R50.9 - FEVER, UNSPECIFIED (10) Leukocytosis Code(s): D72.829 - ELEVATED WHITE BLOOD CELL COUNT, UNSPECIFIED (11) Osteoarthritis Code(s): M19.90 - UNSPECIFIED OSTEOARTHRITIS, UNSPECIFIED SITE Qualifiers: Osteoarthritis location: knee Osteoarthritis type: primary Laterality: left Qualified Code(s): M17.12 - Unilateral primary osteoarthritis, left knee (12) UTI (urinary tract infection) Code(s): N39.0 - URINARY TRACT INFECTION, SITE NOT SPECIFIED Qualifiers: Urinary tract infection type: acute cystitis Hematuria presence: without hematuria Qualified Code(s): N30.00 - Acute cystitis without hematuria
[2018-10-19] MEDS: DOCUSATE SODIUM 100 MG CAPSULE (FP) PO SCH (21:58)
[2018-10-19] MEDS: ATORVASTATIN CA 10 MG TABLET (FP) PO SCH (21:58)
[2018-10-19] MEDS: MONTELUKAST NA 10 MG TABLET PO SCH (21:58)
[2018-10-20] MEDS: LEVOTHYROXINE NA 125 MCG TABLET (FP) PO SCH (06:20)
[2018-10-20 07:57] LABS: ANION GAP 8 MMOL/L (8-16); BLOOD UREA NITROGEN 22 mg/dL (7-18); CALCIUM 8.4 mg/dL (8.5-10.1); CHLORIDE 109 mmol/L (98-107); CO2 22 mmol/L (21-32); CREATININE 1.1 mg/dL (0.55-1.3); GLUCOSE,RANDOM 101 mg/dL (74-106); MAGNESIUM 1.5 mg/dL (1.8-2.4); POTASSIUM 4.1 mmol/L (3.5-5.1); SODIUM 140 mmol/L (136-145)
[2018-10-20] MEDS: ALBUTEROL SO4 2.5/IPRATROPIUM 0.5 INH SOL 3 ML VIAL.NEB. NEB SCH ×4 (08:23→19:45)
[2018-10-20] MEDS ORDERED: PT OWN MED DRAWER 7, Y5N ONE (08:43)
[2018-10-20] MEDS ORDERED: DEXTROSE 5%-WATER 100 ML IVPB ONE (10:35)
[2018-10-20] MEDS: CEFTRIAXONE 2 GM in DEXTROSE 5%-WATER 100 ML IVPB SCH (10:42)
[2018-10-20] MEDS: APIXABAN 2.5 MG TABLET PO SCH ×2 (10:45→21:47)
[2018-10-20] MEDS: PANTOPRAZOLE 40 MG TABLET (FP) PO SCH (10:46)
[2018-10-20] MEDS: ARTIFICIAL TEARS (POLYVINYL ALCOHOL) OPTH DROPS OD SCH ×2 (10:46→21:46)
[2018-10-20] MEDS: ALLOPURINOL 100 MG TABLET (FP) PO SCH (10:46)
[2018-10-20] MEDS: ATORVASTATIN CA 10 MG TABLET (FP) PO SCH (21:47)
[2018-10-20] MEDS: MONTELUKAST NA 10 MG TABLET PO SCH (21:47)
[2018-10-20] MEDS: DOCUSATE SODIUM 100 MG CAPSULE (FP) PO SCH (21:47)
[2018-10-20] MEDS ORDERED: guaiFENesin/D-METHORPHAN HB 10 ML UNIT-DOSE CUPS PO PRN (22:59)
--- NOTE | 2018-10-20 23:17 | PN ---
Progress Note (short form) - Note Progress Note: seen and examined in room reports feeling better today no abdominal pain repeat CT done Vital Signs Period Temp Pulse Resp BP Sys/Peck Pulse Ox Last 24 Hr 97.6 F-99.2 F 67-85 20-21 110-126/48-75 98-99 neck supple heart s1/S2 irreg lungs grossly clear / poor inspiration no wheezing abd soft / mildly distended right flank tenderness / BS + ext no edema / no calf tenderness CBC, BMP 10/19/18 06:45 10/19/18 06:45 CBC, BMP 10/18/18 06:00 10/18/18 06:00 CBC, BMP 10/17/18 06:00 10/17/18 06:00 Microbiology 10/18/18 06:00 Blood - Peripheral Venous Blood Culture - Preliminary NO GROWTH OBTAINED AFTER 24 HOURS, INCUBATION TO CONTINUE FOR 4 DAYS. 10/18/18 06:00 Blood - Peripheral Venous Blood Culture - Preliminary NO GROWTH OBTAINED AFTER 24 HOURS, INCUBATION TO CONTINUE FOR 4 DAYS. 10/13/18 06:05 Blood - Peripheral Venous Blood Culture - Final NO GROWTH AFTER 5 DAYS INCUBATION 10/13/18 06:05 Blood - Peripheral Venous Blood Culture - Final Escherichia Coli 10/13/18 06:35 Urine - Urine - Catheterized Urine Culture - Final Escherichia Coli initial CT : CT Abd / pelvis Moderate right Hydronephrosis & mild to moderate right hydroureter repeat CT 10/19/18 results right hydro persist but mild improvement Active Medications Acetaminophen (Tylenol -) 650 mg PO Q4H PRN PRN Reason: PAIN LEVEL 1-5 Last Admin: 10/18/18 21:17 Dose: 650 mg Albuterol/Ipratropium (Duoneb -) 1 amp NEB RQID [facility] Last Admin: 10/19/18 20:09 Dose: 1 amp Allopurinol (Zyloprim -) 100 mg PO DAILY [facility] Last Admin: 10/19/18 10:01 Dose: 100 mg Apixaban (Eliquis -) 2.5 mg PO BID [facility] Last Admin: 10/19/18 10:00 Dose: 2.5 mg Artificial Tears (Artificial Tears) 1 drop OD QID [facility] Last Admin: 10/19/18 17:23 Dose: 1 drop Atorvastatin Calcium (Lipitor -) 10 mg PO HS [facility] Last Admin: 12/16/18 21:16 Dose: 10 mg Baclofen (Lioresal -) 10 mg PO DAILY PRN PRN Reason: SPASMS Diltiazem HCl (Cardizem Cd -) 240 mg PO DAILY [facility] Last Admin: 10/19/18 10:00 Dose: 240 mg Diltiazem HCl (Cardizem Injection -) 5 mg IVPUSH Q4H PRN PRN Reason: TACHYCARDIA Docusate Sodium (Colace -) 200 mg PO HS [facility] Last Admin: 10/18/18 21:16 Dose: 200 mg Ceftriaxone Sodium 2 gm/ (Dextrose) 100 mls @ 200 mls/hr IVPB DAILY [facility] Last Admin: 10/19/18 10:01 Dose: 200 mls/hr Levothyroxine Sodium (Synthroid -) 125 mcg PO DAILY@0700 [facility] Last Admin: 10/19/18 06:15 Dose: 125 mcg Meclizine HCl (Antivert -) 12.5 mg PO DAILY PRN PRN Reason: ANXIETY Montelukast Sodium (Singulair -) 10 mg PO HS [facility] Last Admin: 10/18/18 21:16 Dose: 10 mg Pantoprazole Sodium (Protonix -) 40 mg PO DAILY [facility] Last Admin: 10/19/18 10:00 Dose: 40 mg 83 year old woman with pmh HTN, HLD, MVR, afib on eliquis and cardizem, chronic diastolic CHF, COPD, CVA, h/o GI bleed admitted with sob, fever, flank and suprapubic pain, urosepsis with afib with RVR in this setting. # sepsis/uro sepsis hydronephrosis - persist flamk pain repeat CT --hydro persist with mild resolution will recall Urology Iv ABX per ID # Afib continue NOAC rate control # dHF follow clinically - Lasix PRN follow daily weights trend renal function #hypothyroid continue synthroid # HTN continue home meds # HX CVA stable - at baseline per family Problem List - Problems (1) Sepsis Code(s): A41.9 - SEPSIS, UNSPECIFIED ORGANISM Qualifiers: Sepsis type: sepsis due to unspecified organism Qualified Code(s): A41.9 - Sepsis, unspecified organism (2) Complicated UTI (urinary tract infection) Code(s): N39.0 - URINARY TRACT INFECTION, SITE NOT SPECIFIED (3) Left flank pain Code(s): R10.9 - UNSPECIFIED ABDOMINAL PAIN (4) SHARON (acute kidney injury) Code(s): N17.9 - ACUTE KIDNEY FAILURE, UNSPECIFIED (5) Arthralgia Code(s): M25.50 - PAIN IN UNSPECIFIED JOINT Qualifiers: Joint pain location: unspecified Qualified Code(s): M25.50 - Pain in unspecified joint (6) Atrial fibrillation Code(s): I48.91 - UNSPECIFIED ATRIAL FIBRILLATION (7) CHF (congestive heart failure) Code(s): I50.9 - HEART FAILURE, UNSPECIFIED (8) COPD (chronic obstructive pulmonary disease) Code(s): J44.9 - CHRONIC OBSTRUCTIVE PULMONARY DISEASE, UNSPECIFIED (9) Fever Code(s): R50.9 - FEVER, UNSPECIFIED (10) Leukocytosis Code(s): D72.829 - ELEVATED WHITE BLOOD CELL COUNT, UNSPECIFIED (11) Osteoarthritis Code(s): M19.90 - UNSPECIFIED OSTEOARTHRITIS, UNSPECIFIED SITE Qualifiers: Osteoarthritis location: knee Osteoarthritis type: primary Laterality: left Qualified Code(s): M17.12 - Unilateral primary osteoarthritis, left knee (12) UTI (urinary tract infection) Code(s): N39.0 - URINARY TRACT INFECTION, SITE NOT SPECIFIED Qualifiers: Urinary tract infection type: acute cystitis Hematuria presence: without hematuria Qualified Code(s): N30.00 - Acute cystitis without hematuria
[2018-10-21] MEDS ORDERED: PT OWN MED DRAWER 7, Y5N ONE ×2 (06:00→06:42)
[2018-10-21] MEDS ORDERED: guaiFENesin/D-METHORPHAN HB 5 ML UNIT-DOSE CUPS PO PRN (06:44)
[2018-10-21] MEDS ORDERED: guaiFENesin/D-METHORPHAN HB 10 ML UNIT-DOSE CUPS PO PRN (06:46)
[2018-10-21] MEDS: ALBUTEROL SO4 2.5/IPRATROPIUM 0.5 INH SOL 3 ML VIAL.NEB. NEB SCH ×5 (07:30→20:17)
[2018-10-21] MEDS: LEVOTHYROXINE NA 125 MCG TABLET (FP) PO SCH (07:55)
[2018-10-21] MEDS ORDERED: DEXTROSE 5%-WATER 100 ML IVPB ONE (09:40)
[2018-10-21] MEDS: APIXABAN 2.5 MG TABLET PO SCH ×2 (10:22→22:17)
[2018-10-21] MEDS: ALLOPURINOL 100 MG TABLET (FP) PO SCH (10:23)
[2018-10-21] MEDS: PANTOPRAZOLE 40 MG TABLET (FP) PO SCH (10:23)
[2018-10-21 16:11] VITALS: BMI 25.9
--- NOTE | 2018-10-21 20:25 | PN ---
Progress Note (short form) - Note Progress Note: seen and examined in room reports feeling better today no abdominal pain repeat CT done -improve hydro afebrile Vital Signs Period Temp Pulse Resp BP Sys/Peck Pulse Ox Last 24 Hr 98.7 F-99.7 F 80-96 18-20 116-133/47-65 98-99 neck supple heart s1/S2 irreg lungs grossly clear / poor inspiration no wheezing abd soft / mildly distended right flank tenderness / BS + ext no edema / no calf tenderness CBC, BMP 10/19/18 06:45 10/19/18 06:45 CBC, BMP 10/18/18 06:00 10/18/18 06:00 CBC, BMP 10/17/18 06:00 10/17/18 06:00 Microbiology 10/18/18 06:00 Blood - Peripheral Venous Blood Culture - Preliminary NO GROWTH OBTAINED AFTER 72 HOURS, INCUBATION TO CONTINUE FOR 2 DAYS. 10/18/18 06:00 Blood - Peripheral Venous Blood Culture - Preliminary NO GROWTH OBTAINED AFTER 72 HOURS, INCUBATION TO CONTINUE FOR 2 DAYS. 10/13/18 06:05 Blood - Peripheral Venous Blood Culture - Final NO GROWTH AFTER 5 DAYS INCUBATION 10/13/18 06:05 Blood - Peripheral Venous Blood Culture - Final Escherichia Coli 10/13/18 06:35 Urine - Urine - Catheterized Urine Culture - Final Escherichia Coli initial CT : CT Abd / pelvis Moderate right Hydronephrosis & mild to moderate right hydroureter repeat CT 10/19/18 results right hydro persist but mild improvement Active Medications Acetaminophen (Tylenol -) 650 mg PO Q4H PRN PRN Reason: PAIN LEVEL 1-5 Last Admin: 10/18/18 21:17 Dose: 650 mg Albuterol/Ipratropium (Duoneb -) 1 amp NEB RQID [facility] Last Admin: 10/21/18 20:17 Dose: 1 amp Allopurinol (Zyloprim -) 100 mg PO DAILY [facility] Last Admin: 10/21/18 10:23 Dose: 100 mg Apixaban (Eliquis -) 2.5 mg PO BID [facility] Last Admin: 10/21/18 10:22 Dose: 2.5 mg Artificial Tears (Artificial Tears) 1 drop OD QID [facility] Last Admin: 10/20/18 21:46 Dose: Not Given Atorvastatin Calcium (Lipitor -) 10 mg PO HS [facility] Last Admin: 10/20/18 21:47 Dose: 10 mg Baclofen (Lioresal -) 10 mg PO DAILY PRN PRN Reason: SPASMS Diltiazem HCl (Cardizem Cd -) 240 mg PO DAILY [facility] Last Admin: 10/21/18 10:22 Dose: 240 mg Diltiazem HCl (Cardizem Injection -) 5 mg IVPUSH Q4H PRN PRN Reason: TACHYCARDIA Docusate Sodium (Colace -) 200 mg PO HS [facility] Last Admin: 10/20/18 21:47 Dose: 200 mg Guaifenesin (Robitussin Dm -) 10 ml PO Q4H PRN PRN Reason: COUGH Levothyroxine Sodium (Synthroid -) 125 mcg PO DAILY@0700 [facility] Last Admin: 10/21/18 07:55 Dose: 125 mcg Meclizine HCl (Antivert -) 12.5 mg PO DAILY PRN PRN Reason: ANXIETY Montelukast Sodium (Singulair -) 10 mg PO HS [facility] Last Admin: 10/20/18 21:47 Dose: 10 mg Pantoprazole Sodium (Protonix -) 40 mg PO DAILY [facility] Last Admin: 10/21/18 10:23 Dose: 40 mg 83 year old woman with pmh HTN, HLD, MVR, afib on eliquis and cardizem, chronic diastolic CHF, COPD, CVA, h/o GI bleed admitted with sob, fever, flank and suprapubic pain, urosepsis with afib with RVR in this setting. # sepsis/uro sepsis hydronephrosis - persist flamk pain repeat CT --hydro persist with mild resolution discussed with Urology - no intervention necessary Iv ABX per ID - will discuss # Afib continue NOAC rate control # dHF follow clinically - Lasix PRN follow daily weights trend renal function #hypothyroid continue synthroid # HTN continue home meds # HX CVA stable - at baseline per family Problem List - Problems (1) Sepsis Code(s): A41.9 - SEPSIS, UNSPECIFIED ORGANISM Qualifiers: Sepsis type: sepsis due to unspecified organism Qualified Code(s): A41.9 - Sepsis, unspecified organism (2) Complicated UTI (urinary tract infection) Code(s): N39.0 - URINARY TRACT INFECTION, SITE NOT SPECIFIED (3) Left flank pain Code(s): R10.9 - UNSPECIFIED ABDOMINAL PAIN (4) SHARON (acute kidney injury) Code(s): N17.9 - ACUTE KIDNEY FAILURE, UNSPECIFIED (5) Arthralgia Code(s): M25.50 - PAIN IN UNSPECIFIED JOINT Qualifiers: Joint pain location: unspecified Qualified Code(s): M25.50 - Pain in unspecified joint (6) Atrial fibrillation Code(s): I48.91 - UNSPECIFIED ATRIAL FIBRILLATION (7) CHF (congestive heart failure) Code(s): I50.9 - HEART FAILURE, UNSPECIFIED (8) COPD (chronic obstructive pulmonary disease) Code(s): J44.9 - CHRONIC OBSTRUCTIVE PULMONARY DISEASE, UNSPECIFIED (9) Fever Code(s): R50.9 - FEVER, UNSPECIFIED (10) Leukocytosis Code(s): D72.829 - ELEVATED WHITE BLOOD CELL COUNT, UNSPECIFIED (11) Osteoarthritis Code(s): M19.90 - UNSPECIFIED OSTEOARTHRITIS, UNSPECIFIED SITE Qualifiers: Osteoarthritis location: knee Osteoarthritis type: primary Laterality: left Qualified Code(s): M17.12 - Unilateral primary osteoarthritis, left knee (12) UTI (urinary tract infection) Code(s): N39.0 - URINARY TRACT INFECTION, SITE NOT SPECIFIED Qualifiers: Urinary tract infection type: acute cystitis Hematuria presence: without hematuria Qualified Code(s): N30.00 - Acute cystitis without hematuria
[2018-10-21] MEDS: ARTIFICIAL TEARS (POLYVINYL ALCOHOL) OPTH DROPS OD SCH (22:16)
[2018-10-21] MEDS: DOCUSATE SODIUM 100 MG CAPSULE (FP) PO SCH (22:16)
[2018-10-21] MEDS: MONTELUKAST NA 10 MG TABLET PO SCH (22:17)
[2018-10-21] MEDS: ATORVASTATIN CA 10 MG TABLET (FP) PO SCH (22:17)
[2018-10-22] MEDS: LEVOTHYROXINE NA 125 MCG TABLET (FP) PO SCH (06:07)
[2018-10-22] MEDS: ALBUTEROL SO4 2.5/IPRATROPIUM 0.5 INH SOL 3 ML VIAL.NEB. NEB SCH (07:30)
--- NOTE | 2018-10-22 08:51 | DS ---
Physical Examination Vital Signs: Vital Signs Temperature 97.9 F 10/22/18 06:00 Pulse Rate 76 10/22/18 06:00 Respiratory Rate 20 10/22/18 06:00 Blood Pressure 123/63 10/22/18 06:00 O2 Sat by Pulse Oximetry (%) 99 10/21/18 21:00 Findings/Remarks: 83 year old female With past medical history of hypertension, pneumonia, CHF, COPD, asthma, cataract surgery, gout, appendectomy, hypothyroidism, stroke, hyperlipidemia, arthritis, A. fib, MVR, glaucoma, GI bleed brought in by ambulance from home complaining of difficulty breathing, wheezing and low-grade temps for one day. Patient also had been complaining of right flank pain and suprapubic pain. Patient is noted to be tachycardic and febrile in the emergency room. Patient was admitted , work up reviled hydronephrosis on right along with + urine and blood c/s for E.Coli. She was treated with IV Rocephin for 7 days and will be discharged on 7 days cefuroxime. She is scheuled for follow up with Dr Barragan on Friday 10/26/ at noon. assmt # sepsis/uro sepsis hydronephrosis - right flamk pain repeat CT --hydro persist with mild resolution discussed with Urology - no intervention necessary discussed with ID - 7 additional days of PO Abx follow up with PCP on Friday10/26/18 # Afib continue NOAC rate controlled Follow up with Cardiology as out patient # dHF - Lasix daily - follow daily weights / low salt diet #hypothyroid continue synthroid # HTN continue home meds # HX CVA stable - at baseline per family Constitutional: Yes: No Distress, Calm Eyes: Yes: Conjunctiva Clear, EOM Intact HENT: Yes: Atraumatic Neck: Yes: Supple, Trachea Midline Cardiovascular: Yes: Pulse Irregular Respiratory: Yes: CTA Bilaterally Gastrointestinal: Yes: Normal Bowel Sounds, Soft ...Rectal Exam: Yes: Deferred Renal/: Yes: WNL. No: Bladder Distention, CVA Tenderness - Right Breast(s): Yes: WNL Musculoskeletal: Yes: WNL Extremities: Yes: WNL Edema: No Peripheral Pulses WNL: Yes Integumentary: Yes: WNL Neurological: Yes: WNL, Alert, Oriented, Pre-Existing Deficit Psychiatric: Yes: Alert, Oriented Labs: CBC, BMP 10/19/18 06:45 10/20/18 06:30 Discharge Summary Reason For Visit: SEPSIS Current Active Problems Complicated UTI (urinary tract infection) (Acute) Left flank pain (Acute) Sepsis (Acute) Condition: Good - Instructions Referrals: Kleber Barragan MD [Primary Care Provider] - Disposition: HOME - Home Medications Comprehensive Discharge Medication List: Ambulatory Orders Atorvastatin Ca [Lipitor] 10 mg PO HS 01/07/16 Diltiazem Cd [Cardizem Cd -] 120 mg PO DAILY 01/07/16 Colchicine 0.6 mg PO PRN 07/11/16 Levothyroxine [Synthroid -] 125 mcg PO DAILY 06/17/17 Acetaminophen [Tylenol] 650 mg PO Q4HWA PRN 07/26/17 Calcium 250Mg/Vit-D 125 Units [Oscal 250 mg+D -] 1 tab PO DAILY 07/26/17 Dextran 70/Hypromellose/Pf [Tears Naturale Free Drops] 1 drop OD QID 07/26/17 Acetaminophen [Tylenol .Regular Strength -] 650 mg PO Q4H PRN tablet 02/24/18 Allopurinol [Zyloprim -] 100 mg PO DAILY 10/13/18 Apixaban [Eliquis] 2.5 mg PO BID 10/13/18 Baclofen 10 mg PO DAILY PRN 10/13/18 Calcium 250Mg/Vit-D 125 Units [Oscal 250 mg+D -] 1 tab PO DAILY 10/13/18 Colchicine 0.6 mg PO DAILY PRN 10/13/18 Fluticasone/Salmeterol [Advair Hfa 115-21 Mcg Inhaler] 2 puff IN QID PRN Meclizine HCl 12.5 mg PO DAILY PRN 10/13/18 Montelukast Sodium [Singulair] 10 mg PO DAILY 10/13/18 Spironolact/Hydrochlorothiazid [Spironolactone-Hctz 25-25 Tab] 1 each PO DAILY 10/13/18 cefuroxime 250 BID for 7 days follow up with Dr Barragan 10/26/18
[2018-10-22] MEDS: ARTIFICIAL TEARS (POLYVINYL ALCOHOL) OPTH DROPS OD SCH (09:16)
[2018-10-22] MEDS: ALLOPURINOL 100 MG TABLET (FP) PO SCH (09:17)
[2018-10-22] MEDS: APIXABAN 2.5 MG TABLET PO SCH (09:17)
[2018-10-22] MEDS: PANTOPRAZOLE 40 MG TABLET (FP) PO SCH (09:17)
--- NOTE | 2018-10-22 09:58 | PN ---
Progress Note (short form) - Note Progress Note: Pt seen, doing fine, + c/o [id number] pain in both knees. She can be DC'd from an orthopedic pov. Follow up as an out pt
[2018-10-22] MEDS ORDERED: CEFUROXIME AXETIL 250 MG TABLET PO SCH (10:00)
--- NOTE | 2018-10-22 10:20 | PN ---
Progress Note (short form) - Note Progress Note: She has been afebrile, Repeat BC have been negative. Day 9 antibiotics. Awake and alert, NAD C/L Coarse BS CVS RRR Abd Soft. A/P EColi Bacteremia EColi UTI Hydronephrosis CAn give PO Cefdinir 300 mg Q 12 X 5 more days to complete 14 days. Foolow in my office on Friday, 10/26 Problem List - Problems (1) Atrial fibrillation Code(s): I48.91 - UNSPECIFIED ATRIAL FIBRILLATION (2) Complicated UTI (urinary tract infection) Code(s): N39.0 - URINARY TRACT INFECTION, SITE NOT SPECIFIED (3) SHARON (acute kidney injury) Code(s): N17.9 - ACUTE KIDNEY FAILURE, UNSPECIFIED
[2018-10-22] MEDS: ACETAMINOPHEN 325 MG TABLET (FP) PO PRN (13:19)
[2018-10-22] MEDS ORDERED: PT OWN MED DRAWER 7, Y5N ONE (13:46)
[2018-10-22 14:22] VITALS: BP 133/64; PULSE 101; TEMP 99.5
== END 2018-10-22 14:28 | disposition home health service (06) | DRG 871 ==
LOC: JER 05:12 → JERBED 08:08 → J4W 17:04 → J7W 10-19 13:15
PROVIDERS: ADMIT Family Medicine; ATTEND Family Medicine
DX: A41.9 Sepsis, unspecified organism (principal); I50.33 Acute on chronic diastolic (congestive) heart failure; J81.0 Acute pulmonary edema; J98.11 Atelectasis; N13.2 Hydronephrosis with renal and ureteral calculous obstruction; N39.0 Urinary tract infection, site not specified; N17.9 Acute kidney failure, unspecified; I50.32 Chronic diastolic (congestive) heart failure; I48.1 Persistent atrial fibrillation; J44.9 Chronic obstructive pulmonary disease, unspecified; M10.9 Gout, unspecified; E03.9 Hypothyroidism, unspecified; E78.5 Hyperlipidemia, unspecified; I34.0 Nonrheumatic mitral (valve) insufficiency; H40.9 Unspecified glaucoma; I11.0 Hypertensive heart disease with heart failure; I50.9 Heart failure, unspecified; Z88.0 Allergy status to penicillin; Z79.01 Long term (current) use of anticoagulants; I36.1 Nonrheumatic tricuspid (valve) insufficiency; B96.20 Unspecified Escherichia coli [E. coli] as the cause of diseases classified elsewhere; K59.00 Constipation, unspecified; M17.0 Bilateral primary osteoarthritis of knee
CPT/HCPCS: 36415; 71045-TC-FY; 74176; 74176-TC; 80048; 80053; 81003; 81015; 82803; 83605; 83735; 83880; 84484; 85025; 85027; 85610; 85730; 87040; 87086; 87186; 87804; 93005; 93010; 94640; 97116-GP; 97161-GP; 99283-25; J0131; J7030

== ENCOUNTER 2019-02-02 17:02 | Emergency (ER) | payer OTHER ==
[2019-02-02 17:10] VITALS: BP 107/74; PULSE 89; TEMP 98.2; BMI 28.2
--- NOTE | 2019-02-02 17:18 | PDOC ---
History of Present Illness - General Chief Complaint: Injury Stated Complaint: FALL/HIT Time Seen by Provider: 02/02/19 17:16 History Source: Patient Exam Limitations: No Limitations - History of Present Illness Initial Comments: 02/02/19 17:19 83 year old female With past medical history of hypertension, pneumonia, CHF, COPD, asthma, cataract surgery, gout, appendectomy, hypothyroidism, stroke, hyperlipidemia, arthritis, A. fib, MVR, glaucoma, GI bleed who presents with head trauma after bending forward falling hitting her head, she did not have a loss of consciousness bending forward and fell hit head on ground opn eliquis 02/02/19 19:11 02/02/19 19:47 Past History - Past Medical History Allergies/Adverse Reactions: Allergies Allergy/AdvReac Type Severity Reaction Status Date / Time budesonide [From Symbicort] Allergy Severe Verified 02/02/19 17:10 formoterol fumarate Allergy Severe Verified 02/02/19 17:10 [From Symbicort] moxifloxacin HCl Allergy Intermediate Verified 02/02/19 17:10 [From Avelox] Penicillins Allergy Mild Hives Verified 02/02/19 17:10 Home Medications: Ambulatory Orders Atorvastatin Ca [Lipitor] 10 mg PO HS 01/07/16 Diltiazem Cd [Cardizem Cd -] 120 mg PO DAILY 01/07/16 Colchicine 0.6 mg PO PRN 07/11/16 Levothyroxine [Synthroid -] 125 mcg PO DAILY 06/17/17 Acetaminophen [Tylenol] 650 mg PO Q4HWA PRN 07/26/17 Dextran 70/Hypromellose/Pf [Tears Naturale Free Drops] 1 drop OD QID 07/26/17 Acetaminophen [Tylenol .Regular Strength -] 650 mg PO Q4H PRN tablet 02/24/18 Allopurinol [Zyloprim -] 100 mg PO DAILY 10/13/18 Apixaban [Eliquis] 2.5 mg PO BID 10/13/18 Baclofen 10 mg PO DAILY PRN 10/13/18 Colchicine 0.6 mg PO DAILY PRN 10/13/18 Fluticasone/Salmeterol [Advair Hfa 115-21 Mcg Inhaler] 2 puff IN QID PRN Meclizine HCl 12.5 mg PO DAILY PRN 10/13/18 Montelukast Sodium [Singulair] 10 mg PO DAILY 10/13/18 Spironolact/Hydrochlorothiazid [Spironolactone-Hctz 25-25 Tab] 1 each PO DAILY 10/13/18 Albuterol 2.5/Ipratropium 0.5 [Duoneb -] 1 amp NEB RQID 30 Days #120 amp Cefuroxime Axetil [Ceftin -] 250 mg PO BID 7 Days #14 tablet 10/22/18 Docusate Sodium [Colace -] 200 mg PO HS capsule 10/22/18 Guaifenesin Dm [Robitussin Dm -] 10 ml PO Q4H PRN cup 10/22/18 Guaifenesin Dm [Robitussin Dm -] 10 ml PO Q4H PRN cup 10/22/18 Guaifenesin/Dextromethorphan [Guaifenesin Dm Syrup] 10 ml PO Q4H PRN cup Anemia: No Asthma: Yes Cancer: No Cardiac Disorders: Yes (A.FIB) CVA: Yes (no residual deficet) COPD: Yes CHF: No Dementia: No Diabetes: No GI Disorders: No Disorders: No HTN: Yes Hypercholesterolemia: Yes Liver Disease: No Seizures: No Thyroid Disease: Yes (HYPO) - Surgical History Abdominal Surgery: Yes Appendectomy: Yes Cardiac Surgery: No Cholecystectomy: No Lung Surgery: No Neurologic Surgery: Yes (right eye) Orthopedic Surgery: Yes (R ARTHROSCOPY knee) - Suicide/Smoking/Psychosocial Hx Smoking Status: No Smoking History: Never smoked Have you smoked in the past 12 months: No Number of Cigarettes Smoked Daily: 0 Information on smoking cessation initiated: No Hx Alcohol Use: No Drug/Substance Use Hx: No Substance Use Type: None Hx Substance Use Treatment: No *Physical Exam - Vital Signs Last Vital Signs Temp Pulse Resp BP Pulse Ox 98.2 F 89 18 107/74 100 02/02/19 17:07 02/02/19 17:07 02/02/19 17:07 02/02/19 17:07 02/02/19 17:07 ED Treatment Course - LABORATORY CBC & Chemistry Diagram: 02/02/19 18:25 02/02/19 18:25 Medical Decision Making - Medical Decision Making 02/02/19 18:33 ED Course: CT without acute bleed or fracture ekg w/ afib 02/02/19 19:11 labs w/ slight transaminitis and nadira *DC/Admit/Observation/Transfer Diagnosis at time of Disposition: Fall, Head trauma - Discharge Dispostion Disposition: HOME Condition at time of disposition: Stable - Referrals Referrals: Kleber Barragan MD [Primary Care Provider] - - Patient Instructions Printed Discharge Instructions: DI for Closed Head Injury Additional Instructions: You were seen in the ED for complaints of head trauma after fall. In the ED you were evaluated with labwork and imaging. Your results were significant for a slight transaminitis which should be followed up by PCP. There does not appear to be an acute need for immediate hospitalization. You are advised to follow up with your Primary Care Physician within 1 week. Family should monitor the patient for 24 hours for any neurological changes or deficits. Return to the ED immediately if you experience worsening headache, confusion, lethargy, neck pain, loss of consciousness, nausea, vomiting, chest pain, shortness of breath or fever. - Post Discharge Activity
--- NOTE | 2019-02-02 17:25 | PDOC ---
Rapid Medical Evaluation Chief Complaint: Injury Medical Evaluation: Allergies Allergy/AdvReac Type Severity Reaction Status Date / Time budesonide [From Symbicort] Allergy Severe Verified 02/02/19 17:10 formoterol fumarate Allergy Severe Verified 02/02/19 17:10 [From Symbicort] moxifloxacin HCl Allergy Intermediate Verified 02/02/19 17:10 [From Avelox] Penicillins Allergy Mild Hives Verified 02/02/19 17:10 Vital Signs Temp Pulse Resp BP Pulse Ox 98.2 F 89 18 107/74 100 02/02/19 17:07 02/02/19 17:07 02/02/19 17:07 02/02/19 17:07 02/02/19 17:07 02/02/19 17:15 The patient presents with a chief complaint of: mechanical fall, hit left knee and head, + nosebleed and forehead hematoma I have performed a brief in-person evaluation of this patient; Pertinent physical exam findings: vss, no PE done I have ordered the following: head, facial, and cervical CT The patient will proceed to the ED for further evaluation. Discharge Disposition - Diagnosis Fall - Referrals - Patient Instructions - Post Discharge Activity
--- NOTE | 2019-02-02 17:35 | PDOC ---
Attending Attestation - HPI HPI: 02/02/19 19:49 The patient is a 83 year old female with a past medical history of hypertension , pneumonia, CHF, COPD, asthma, cataract surgery, gout, appendectomy, hypothyroidism, stroke, hyperlipidemia, arthritis, A. fib, MVR, glaucoma, GI bleed who presents with head injury on Eliquis. <Melissa Mo - Last Filed: 02/02/19 19:49> - Resident Resident Name: Edyta Lechuga - ED Attending Attestation I have performed the following: I have examined & evaluated the patient, The case was reviewed & discussed with the resident, I agree w/resident's findings & plan, Exceptions are as noted - Physicial Exam PE: 02/02/19 20:17 alert conversant 83 yo female fell head forehead ecchymosis ,small forehead hematoma neck no cervical midline tenderness lungs cta b/l cvs [id number] abd nontender ext no arm or leg deformities skin warm and dry neuro alert,conversant,ambulatory - Medical Decision Making 02/02/19 20:19 ct scan head.spine/face ct scans - no acute fracture 02/02/19 20:21 spoke with daughter who is a nurse and discharged instructions included the understanding that this elderly population can have delayed brain bleeds and if this pt develops lethargy,confusion,c/o severe headaches ,she is to return to the Ed for repeat imaging and assessment <Annalee Woody - Last Filed: 02/02/19 20:23> Attestations - Attestations 02/02/19 19:50 Documentation prepared by Melissa Mo, acting as medical field representative for Annalee Woody MD <Melissa Mo - Last Filed: 02/02/19 19:49>
[2019-02-02] MEDS ORDERED: ACETAMINOPHEN 1000 MG/100 ML VIAL (NON FORMULARY) IVPB ONE (18:07)
[2019-02-02] MEDS ORDERED: ACETAMINOPHEN INJECTION 100 ML IVPB ONE (18:14)
[2019-02-02 18:42] LABS: BASO % 0.6 % (0-2.0); EOS % 5.7 % (0-4.5); HEMATOCRIT 38.5 % (32.4-45.2); HEMOGLOBIN 12.6 GM/dL (10.7-15.3); LYMPH % 27.1 % (8-40); MCHC 32.8 g/dl (32.0-36.0); MEAN CELL VOLUME 106.5 fl (80-96); MONO % 9.8 % (3.8-10.2); NEUT % 56.8 % (42.8-82.8); PLATELET COUNT 205 K/MM3 (134-434); RBC 3.61 M/mm3 (3.60-5.2); RDW 14.5 % (11.6-15.6); WHITE BLOOD COUNT 8.6 K/mm3 (4.0-10.0)
[2019-02-02 18:54] LABS: INR 1.15 (0.83-1.09); PROTHROMBIN TIME (PATIENT) 13.6 SEC (9.7-13.0)
[2019-02-02 18:57] LABS: ACTIVATED PTT 32.1 SECONDS (25.2-36.5); ALBUMIN 3.8 g/dl (3.4-5.0); ANION GAP 7 MMOL/L (8-16); BLOOD UREA NITROGEN 34 mg/dL (7-18); CALCIUM 8.6 mg/dL (8.5-10.1); CHLORIDE 100 mmol/L (98-107); CO2 26 mmol/L (21-32); CREATININE 1.6 mg/dL (0.55-1.3); GLUCOSE,RANDOM 164 mg/dL (74-106); POTASSIUM 4.7 mmol/L (3.5-5.1); SODIUM 134 mmol/L (136-145); TOT PROT 7.6 g/dl (6.4-8.2)
[2019-02-02 18:58] LABS: ALK PHOS 105 U/L (45-117); BILIRUBIN,TOTAL 0.2 mg/dL (0.2-1); SGOT/AST 73 U/L (15-37); SGPT/ALT 146 U/L (13-61)
[2019-02-02 19:57] LABS: EPI CELLS 0.2 /HPF (0-5); PH,URINE 5.5 (5.0-8.0); URINE APPEARANCE CLEAR; URINE BACTERIA 3.9 /hpf (NEGATIVE); URINE BILIRUBIN NEGATIVE (NEGATIVE); URINE CASTS 1 /hpf (0-8); URINE COLOR YELLOW; URINE GLUCOSE (UA) NEGATIVE (NEGATIVE); URINE KETONE NEGATIVE (NEGATIVE); URINE LEUK ESTERASE NEGATIVE (NEGATIVE); URINE NITRITE NEGATIVE (NEGATIVE); URINE PROTEIN NEGATIVE (NEGATIVE); URINE RBC 2 /hpf (0-4); URINE UROBILINOGEN 0.2 mg/dL (0.2-1.0); URINE WBC 0 /hpf (0-5)
[2019-02-02] MEDS ORDERED: SODIUM CHLORIDE 1,000 ML IV SCH ×3 (20:00)
[2019-02-02 20:43] LABS: ANISOCYTOSIS FEW
[2019-02-02 20:44] LABS: MACROCYTOSIS FEW
--- NOTE | 2019-02-03 10:14 | EKG ---
Test Reason : Blood Pressure : / mmHG Vent. Rate : 086 BPM Atrial Rate : 090 BPM P-R Int : 000 ms QRS Dur : 076 ms QT Int : 386 ms P-R-T Axes : 000 071 049 degrees QTc Int : 461 ms POOR DATA QUALITY, INTERPRETATION MAY BE ADVERSELY AFFECTED ATRIAL FIBRILLATION ABNORMAL ECG WHEN COMPARED WITH ECG OF 13-OCT-2018 06:49, NO SIGNIFICANT CHANGE WAS FOUND Confirmed by NADEEM RODARTE, CATHY ([id number]) on 02/03/2019 10:14:06 AM Referred By: Confirmed By:CATHY SILVER MD
== END 2019-02-02 20:25 | disposition home or self-care (01) ==
LOC: JER 17:02
PROC: 3E033NZ Introduction of Analgesics, Hypnotics, Sedatives into Peripheral Vein, Percutaneous Approach (ICD-10-PCS; principal; 2019-02-02)
DX: S00.83XA Contusion of other part of head, initial encounter (principal); W18.39XA Other fall on same level, initial encounter; Y93.89 Activity, other specified; Y92.89 Other specified places as the place of occurrence of the external cause; Y99.8 Other external cause status; I11.0 Hypertensive heart disease with heart failure; I50.9 Heart failure, unspecified; I48.91 Unspecified atrial fibrillation; Z79.01 Long term (current) use of anticoagulants; J44.9 Chronic obstructive pulmonary disease, unspecified; E03.9 Hypothyroidism, unspecified; M10.9 Gout, unspecified; M12.9 Arthropathy, unspecified; Z95.2 Presence of prosthetic heart valve; Z86.73 Personal history of transient ischemic attack (TIA), and cerebral infarction without residual deficits
CPT/HCPCS: 36415; 70450-TC; 70486-TC; 72125-TC; 80053; 81003; 85025; 85610; 85730; 86850; 86900; 86901; 87086; 93005; 93010; 96374; 99283-25; J0131

== ENCOUNTER 2021-10-07 02:36 | Inpatient (IN) | payer OTHER ==
[2021-10-07 04:32] LABS: VENOUS BASE EXCESS -2.7 mmol/L (-2-2); VENOUS O2 SATURATION 61.3 % (70-80); VENOUS PCO2 41.1 mmHg (38-52); VENOUS PH 7.358 (7.310-7.410)
[2021-10-07 04:40] LABS: BASO % 0.1 % (0-2.0); HEMATOCRIT 34.6 % (32.4-45.2); HEMOGLOBIN 11.6 GM/dL (10.7-15.3); LYMPH % 6.9 % (8-40); MCH 38.1 pg (25.7-33.7); MCHC 33.4 g/dl (32.0-36.0); MEAN CELL VOLUME 113.9 fl (80-96); MEAN PLT VOLUME 7.1 fl (7.5-11.1); MONO % 4.7 % (3.8-10.2); NEUT % 88.3 % (42.8-82.8); PLATELET COUNT 225 10^3/uL (134-434); RBC 3.04 M/mm3 (3.60-5.2); WHITE BLOOD COUNT 10.2 K/mm3 (4.0-10.0)
[2021-10-07 04:51] LABS: CHLORIDE 101 mmol/L (98-107); SODIUM 135 mmol/L (136-145)
[2021-10-07 04:53] LABS: CALCIUM 9.1 mg/dL (8.5-10.1)
[2021-10-07 04:54] LABS: ALBUMIN 3.8 g/dl (3.4-5.0); ANION GAP 13 MMOL/L (8-16); BLOOD UREA NITROGEN 59.5 mg/dL (7-18); CO2 22 mmol/L (21-32); GLUCOSE,RANDOM 195 mg/dL (74-106)
[2021-10-07 04:57] LABS: CREATININE 1.8 mg/dL (0.55-1.3); SGOT/AST 16 U/L (15-37); SGPT/ALT 25 U/L (13-61)
[2021-10-07 04:59] LABS: BILIRUBIN,TOTAL 0.3 mg/dL (0.2-1); TOT PROT 7.3 g/dl (6.4-8.2)
[2021-10-07 05:00] LABS: ALK PHOS 87 U/L (45-117)
[2021-10-07 06:02] LABS: EPI CELLS 18 /uL (0-25.1); HYALINE CASTS 5 /uL (0-3.1); PH,URINE 5.5 (5.0-8.0); URINE APPEARANCE CLOUDY; URINE BACTERIA >9,000 /uL (0-1359); URINE BILIRUBIN NEGATIVE (NEGATIVE); URINE COLOR YELLOW; URINE GLUCOSE (UA) NEGATIVE (NEGATIVE); URINE KETONE NEGATIVE (NEGATIVE); URINE LEUK ESTERASE 3+ (NEGATIVE); URINE NITRITE NEGATIVE (NEGATIVE); URINE PROTEIN NEGATIVE (NEGATIVE); URINE RBC 3 /uL (0-23.9); URINE UROBILINOGEN 0.2 mg/dL (0.2-1.0); URINE WBC 425 /uL (0-25.8)
[2021-10-07] MEDS ORDERED: ALBUTEROL SO4 2.5/IPRATROPIUM 0.5 INH SOL 3 ML VIAL.NEB. NEB ONE (06:22)
[2021-10-07] MEDS: ALBUTEROL SO4 2.5/IPRATROPIUM 0.5 INH SOL 3 ML VIAL.NEB. NEB SCH (06:28)
[2021-10-07] MEDS ORDERED: ALBUTEROL SO4 2.5/IPRATROPIUM 0.5 INH SOL 3 ML VIAL.NEB. NEB SCH (06:30)
[2021-10-07] MEDS ORDERED: CEFTRIAXONE 1,000 MG in DEXTROSE 5%-WATER - 50 ML IVPB ONE (06:51)
[2021-10-07] MEDS ORDERED: CEFTRIAXONE 1 GM/50 ML BAG ONE (06:56)
[2021-10-07] MEDS ORDERED: ALBUTEROL SO4 2.5/IPRATROPIUM 0.5 INH SOL 3 ML VIAL.NEB. NEB PRN (07:27)
[2021-10-07] MEDS ORDERED: D5-1/2NS+10 MEQ KCL - 10 MEQ/1,000 ML INFUS.BAG IV SCH ×2 (07:45)
[2021-10-07] MEDS ORDERED: FUROSEMIDE 40 MG/4 ML INJECTABLE VIAL IVPUSH SCH ×3 (09:28→10:30)
[2021-10-07] MEDS ORDERED: APIXABAN 2.5 MG TABLET ONE ×2 (09:52→22:10)
[2021-10-07] MEDS ORDERED: FUROSEMIDE 40 MG/4 ML INJECTABLE VIAL ONE (09:52)
[2021-10-07] MEDS ORDERED: PANTOPRAZOLE 40 MG TABLET ONE (09:52)
[2021-10-07] MEDS ORDERED: HYDROCHLOROTHIAZIDE 25 MG TABLET (FP) PO SCH (10:00)
[2021-10-07] MEDS ORDERED: SPIRONOLACTONE 25 MG TABLET PO SCH (10:00)
[2021-10-07] MEDS ORDERED: FUROSEMIDE 40 MG/4 ML INJECTABLE VIAL IVPUSH ONE (10:00)
[2021-10-07] MEDS: APIXABAN 2.5 MG TABLET PO SCH ×2 (10:10→22:22)
[2021-10-07] MEDS: PANTOPRAZOLE 40 MG TABLET PO SCH (10:10)
[2021-10-07] MEDS: LEVALBUTEROL HCL 0.31 MG/3 ML VIAL.NEB IH SCH ×2 (16:17→22:22)
[2021-10-07] MEDS: INSULIN SLIDING SCALE (NOVOLOG) 1 VIAL SQ SCH (16:20)
[2021-10-07] MEDS ORDERED: MONTELUKAST NA 10 MG TABLET ONE (22:10)
[2021-10-07] MEDS ORDERED: ATORVASTATIN CA 10 MG TABLET (FP) ONE (22:10)
[2021-10-07] MEDS: ATORVASTATIN CA 10 MG TABLET (FP) PO SCH (22:22)
[2021-10-07] MEDS: MONTELUKAST NA 10 MG TABLET PO SCH (22:22)
[2021-10-08] MEDS: LEVOTHYROXINE NA 25 MCG TABLET (FP) PO SCH (07:30)
[2021-10-08 08:03] LABS: BASO % 0.1 % (0-2.0); HEMATOCRIT 37.5 % (32.4-45.2); HEMOGLOBIN 12.4 GM/dL (10.7-15.3); LYMPH % 21.8 % (8-40); MCH 37.7 pg (25.7-33.7); MCHC 33.1 g/dl (32.0-36.0); MEAN CELL VOLUME 113.8 fl (80-96); MEAN PLT VOLUME 7.4 fl (7.5-11.1); MONO % 10.6 % (3.8-10.2); NEUT % 67.5 % (42.8-82.8); PLATELET COUNT 229 10^3/uL (134-434); RDW 13.8 % (11.6-15.6); WHITE BLOOD COUNT 12.8 K/mm3 (4.0-10.0)
[2021-10-08 08:23] LABS: ALBUMIN 3.6 g/dl (3.4-5.0); BLOOD UREA NITROGEN 60.1 mg/dL (7-18); CALCIUM 9.6 mg/dL (8.5-10.1)
[2021-10-08 08:24] LABS: MAGNESIUM 1.9 mg/dL (1.8-2.4)
[2021-10-08 08:26] LABS: CREATININE 1.4 mg/dL (0.55-1.3); PHOSPHOROUS 3.8 mg/dL (2.5-4.9)
[2021-10-08 08:28] LABS: BILIRUBIN,TOTAL 0.6 mg/dL (0.2-1); TOT PROT 7.4 g/dl (6.4-8.2)
[2021-10-08] MEDS: LEVALBUTEROL HCL 0.31 MG/3 ML VIAL.NEB IH SCH ×2 (08:30→13:41)
[2021-10-08] MEDS ORDERED: LEVOTHYROXINE NA 25 MCG TABLET (FP) ONE (09:07)
[2021-10-08] MEDS ORDERED: dilTIAZem HCL 60 MG TABLET ONE (09:07)
[2021-10-08] MEDS ORDERED: PANTOPRAZOLE 40 MG TABLET ONE (09:07)
[2021-10-08] MEDS ORDERED: APIXABAN 2.5 MG TABLET ONE (09:07)
[2021-10-08] MEDS ORDERED: FUROSEMIDE 40 MG/4 ML INJECTABLE VIAL ONE (09:08)
[2021-10-08] MEDS ORDERED: CEFTRIAXONE 1 GM/50 ML BAG ONE (09:08)
[2021-10-08] MEDS: APIXABAN 2.5 MG TABLET PO SCH ×2 (10:00→21:08)
[2021-10-08] MEDS: INSULIN SLIDING SCALE (NOVOLOG) 1 VIAL SQ SCH ×2 (10:32→16:57)
[2021-10-08] MEDS: PANTOPRAZOLE 40 MG TABLET PO SCH (10:33)
[2021-10-08] MEDS: FUROSEMIDE 40 MG/4 ML INJECTABLE VIAL IVPUSH SCH (10:33)
[2021-10-08] MEDS: CEFTRIAXONE 1 GM in DEXTROSE 5%-WATER - 50 ML IVPB SCH (10:33)
[2021-10-08] MEDS ORDERED: methylPREDNISolone NA SUCC 40 MG/1 ML VIAL ONE (16:43)
[2021-10-08] MEDS: methylPREDNISolone NA SUCC 40 MG/1 ML VIAL IVPUSH SCH ×2 (16:57→18:17)
[2021-10-08] MEDS: ATORVASTATIN CA 10 MG TABLET (FP) PO SCH (21:08)
[2021-10-08] MEDS: MONTELUKAST NA 10 MG TABLET PO SCH (21:08)
[2021-10-09] MEDS: methylPREDNISolone NA SUCC 40 MG/1 ML VIAL IVPUSH SCH ×3 (01:19→17:03)
[2021-10-09] MEDS: INSULIN SLIDING SCALE (NOVOLOG) 1 VIAL SQ SCH ×2 (06:15→17:02)
[2021-10-09] MEDS: LEVOTHYROXINE NA 25 MCG TABLET (FP) PO SCH (06:15)
[2021-10-09] MEDS: LEVALBUTEROL HCL 0.31 MG/3 ML VIAL.NEB IH SCH ×3 (08:00→20:54)
[2021-10-09 09:57] LABS: BASO % 0.1 % (0-2.0); HEMATOCRIT 40.7 % (32.4-45.2); HEMOGLOBIN 13.5 GM/dL (10.7-15.3); MCH 38.3 pg (25.7-33.7); MCHC 33.3 g/dl (32.0-36.0); MEAN CELL VOLUME 115.1 fl (80-96); MEAN PLT VOLUME 7.7 fl (7.5-11.1); MONO % 1.4 % (3.8-10.2); NEUT % 76.5 % (42.8-82.8); PLATELET COUNT 236 10^3/uL (134-434); RBC 3.53 M/mm3 (3.60-5.2); RDW 14.1 % (11.6-15.6); WHITE BLOOD COUNT 8.5 K/mm3 (4.0-10.0)
[2021-10-09] MEDS ORDERED: cefTRIAXone SODIUM 1 GM VIAL ONE (10:11)
[2021-10-09] MEDS ORDERED: DEXTROSE 5%-WATER - 50 ML IVPB ONE (10:11)
[2021-10-09 10:16] LABS: CALCIUM 9.4 mg/dL (8.5-10.1)
[2021-10-09 10:17] LABS: BLOOD UREA NITROGEN 61.5 mg/dL (7-18)
[2021-10-09 10:20] LABS: CREATININE 1.3 mg/dL (0.55-1.3)
[2021-10-09] MEDS: CEFTRIAXONE 1 GM in DEXTROSE 5%-WATER - 50 ML IVPB SCH (11:00)
[2021-10-09] MEDS: FUROSEMIDE 40 MG/4 ML INJECTABLE VIAL IVPUSH SCH (11:00)
[2021-10-09] MEDS: PANTOPRAZOLE 40 MG TABLET PO SCH (11:00)
[2021-10-09] MEDS: APIXABAN 2.5 MG TABLET PO SCH ×2 (11:00→21:26)
[2021-10-09] MEDS: MONTELUKAST NA 10 MG TABLET PO SCH (21:26)
[2021-10-09] MEDS: ATORVASTATIN CA 10 MG TABLET (FP) PO SCH (21:26)
[2021-10-09] MEDS ORDERED: guaiFENesin/CODEINE 10 ML UNIT-DOSE CUPS PO PRN (22:09)
[2021-10-10] MEDS: IPRATROPIUM BR 0.02% 0.5 MG/2.5 ML VIAL.NEB. NEB PRN (01:32)
[2021-10-10] MEDS ORDERED: FAMOTIDINE 20 MG TABLET PO ONE (02:10)
[2021-10-10] MEDS: methylPREDNISolone NA SUCC 40 MG/1 ML VIAL IVPUSH SCH ×3 (02:37→17:46)
[2021-10-10] MEDS: INSULIN SLIDING SCALE (NOVOLOG) 1 VIAL SQ SCH ×2 (06:25→17:47)
[2021-10-10] MEDS: LEVOTHYROXINE NA 25 MCG TABLET (FP) PO SCH (06:26)
[2021-10-10] MEDS: LEVALBUTEROL HCL 0.31 MG/3 ML VIAL.NEB IH SCH ×3 (07:30→19:43)
[2021-10-10 09:49] LABS: BASO % 0.2 % (0-2.0); HEMATOCRIT 41.2 % (32.4-45.2); HEMOGLOBIN 13.6 GM/dL (10.7-15.3); LYMPH % 11.7 % (8-40); MCHC 33.1 g/dl (32.0-36.0); MONO % 2.2 % (3.8-10.2); NEUT % 85.9 % (42.8-82.8); PLATELET COUNT 258 10^3/uL (134-434); RBC 3.58 M/mm3 (3.60-5.2); RDW 13.7 % (11.6-15.6); WHITE BLOOD COUNT 13.7 K/mm3 (4.0-10.0)
[2021-10-10] MEDS ORDERED: DEXTROSE 5%-WATER - 50 ML IVPB ONE (10:44)
[2021-10-10] MEDS ORDERED: cefTRIAXone SODIUM 1 GM VIAL ONE (10:44)
[2021-10-10] MEDS: APIXABAN 2.5 MG TABLET PO SCH ×2 (10:55→21:39)
[2021-10-10] MEDS: PANTOPRAZOLE 40 MG TABLET PO SCH (10:55)
[2021-10-10] MEDS: FUROSEMIDE 40 MG/4 ML INJECTABLE VIAL IVPUSH SCH (11:00)
[2021-10-10 11:02] LABS: BLOOD UREA NITROGEN 67.4 mg/dL (7-18); CALCIUM 9.5 mg/dL (8.5-10.1)
[2021-10-10 11:05] LABS: CREATININE 1.5 mg/dL (0.55-1.3)
[2021-10-10] MEDS: CEFTRIAXONE 1 GM in DEXTROSE 5%-WATER - 50 ML IVPB SCH (11:08)
[2021-10-10 11:57] LABS: ANISOCYTOSIS 1+; MACROCYTOSIS 1+; PLATELET ESTIMATE NORMAL
[2021-10-10] MEDS: MONTELUKAST NA 10 MG TABLET PO SCH (21:39)
[2021-10-10] MEDS: ATORVASTATIN CA 10 MG TABLET (FP) PO SCH (21:39)
[2021-10-11] MEDS: INSULIN SLIDING SCALE (NOVOLOG) 1 VIAL SQ SCH ×2 (06:05→17:43)
[2021-10-11] MEDS: LEVOTHYROXINE NA 25 MCG TABLET (FP) PO SCH (06:08)
[2021-10-11] MEDS: LEVALBUTEROL HCL 0.31 MG/3 ML VIAL.NEB IH SCH ×2 (07:57→20:04)
[2021-10-11 09:33] LABS: BASO % 0.1 % (0-2.0); HEMATOCRIT 42.1 % (32.4-45.2); LYMPH % 10.3 % (8-40); MCH 37.7 pg (25.7-33.7); MCHC 33.2 g/dl (32.0-36.0); MEAN CELL VOLUME 113.7 fl (80-96); MEAN PLT VOLUME 7.9 fl (7.5-11.1); MONO % 3.6 % (3.8-10.2); PLATELET COUNT 256 10^3/uL (134-434); RDW 13.5 % (11.6-15.6); WHITE BLOOD COUNT 12.6 K/mm3 (4.0-10.0)
[2021-10-11 09:46] LABS: BLOOD UREA NITROGEN 77.3 mg/dL (7-18)
[2021-10-11 09:50] LABS: CREATININE 1.6 mg/dL (0.55-1.3)
[2021-10-11 09:56] LABS: CALCIUM 9.5 mg/dL (8.5-10.1)
[2021-10-11] MEDS ORDERED: cefTRIAXone SODIUM 1 GM VIAL ONE (10:36)
[2021-10-11] MEDS ORDERED: DEXTROSE 5%-WATER - 50 ML IVPB ONE (10:36)
[2021-10-11] MEDS: methylPREDNISolone NA SUCC 40 MG/1 ML VIAL IVPUSH SCH ×2 (10:55→22:20)
[2021-10-11] MEDS: CEFTRIAXONE 1 GM in DEXTROSE 5%-WATER - 50 ML IVPB SCH (11:00)
[2021-10-11] MEDS: PANTOPRAZOLE 40 MG TABLET PO SCH (11:00)
[2021-10-11] MEDS: APIXABAN 2.5 MG TABLET PO SCH ×2 (11:00→22:20)
[2021-10-11] MEDS ORDERED: POTASSIUM CHLORIDE TABS 20 MEQ TABLET.ER (FP) PO ONE (12:30)
[2021-10-11] MEDS: IPRATROPIUM BR 0.02% 0.5 MG/2.5 ML VIAL.NEB. NEB PRN (13:55)
[2021-10-11 18:25] LABS: PH,URINE 5.5 (5.0-8.0); URINE APPEARANCE CLEAR; URINE BILIRUBIN NEGATIVE (NEGATIVE); URINE COLOR YELLOW; URINE GLUCOSE (UA) NEGATIVE (NEGATIVE); URINE KETONE NEGATIVE (NEGATIVE); URINE LEUK ESTERASE NEGATIVE (NEGATIVE); URINE NITRITE NEGATIVE (NEGATIVE); URINE PROTEIN NEGATIVE (NEGATIVE); URINE UROBILINOGEN 0.2 mg/dL (0.2-1.0)
[2021-10-11] MEDS: ATORVASTATIN CA 10 MG TABLET (FP) PO SCH (22:19)
[2021-10-11] MEDS: MONTELUKAST NA 10 MG TABLET PO SCH (22:20)
[2021-10-12] MEDS: INSULIN SLIDING SCALE (NOVOLOG) 1 VIAL SQ SCH ×2 (06:23→16:27)
[2021-10-12] MEDS: LEVOTHYROXINE NA 25 MCG TABLET (FP) PO SCH (06:24)
[2021-10-12] MEDS: LEVALBUTEROL HCL 0.31 MG/3 ML VIAL.NEB IH SCH ×3 (08:04→19:41)
[2021-10-12] MEDS: IPRATROPIUM BR 0.02% 0.5 MG/2.5 ML VIAL.NEB. NEB PRN (08:04)
[2021-10-12] MEDS ORDERED: POTASSIUM CHLORIDE TABS 20 MEQ TABLET.ER (FP) PO ONE (09:19)
[2021-10-12 09:23] LABS: CALCIUM 9.5 mg/dL (8.5-10.1)
[2021-10-12 09:24] LABS: ALBUMIN 3.2 g/dl (3.4-5.0); BLOOD UREA NITROGEN 67.4 mg/dL (7-18)
[2021-10-12 09:27] LABS: CREATININE 1.3 mg/dL (0.55-1.3)
[2021-10-12 09:28] LABS: BILIRUBIN,TOTAL 0.6 mg/dL (0.2-1); TOT PROT 7.2 g/dl (6.4-8.2)
[2021-10-12] MEDS ORDERED: cefTRIAXone SODIUM 1 GM VIAL ONE (10:16)
[2021-10-12] MEDS ORDERED: DEXTROSE 5%-WATER - 50 ML IVPB ONE (10:16)
[2021-10-12] MEDS: methylPREDNISolone NA SUCC 40 MG/1 ML VIAL IVPUSH SCH ×2 (10:40→21:59)
[2021-10-12] MEDS: CEFTRIAXONE 1 GM in DEXTROSE 5%-WATER - 50 ML IVPB SCH (10:47)
[2021-10-12] MEDS: PANTOPRAZOLE 40 MG TABLET PO SCH (10:47)
[2021-10-12] MEDS: APIXABAN 2.5 MG TABLET PO SCH ×2 (10:47→21:59)
[2021-10-12] MEDS: MONTELUKAST NA 10 MG TABLET PO SCH (21:59)
[2021-10-12] MEDS: ATORVASTATIN CA 10 MG TABLET (FP) PO SCH (21:59)
[2021-10-13] MEDS: INSULIN SLIDING SCALE (NOVOLOG) 1 VIAL SQ SCH ×2 (06:12→17:50)
[2021-10-13] MEDS: LEVOTHYROXINE NA 25 MCG TABLET (FP) PO SCH (06:13)
[2021-10-13] MEDS ORDERED: PT OWN MED DRAWER 7, Y5N ONE ×3 (09:45→22:01)
[2021-10-13] MEDS: APIXABAN 2.5 MG TABLET PO SCH ×2 (09:50→22:14)
[2021-10-13] MEDS: FUROSEMIDE 40 MG TABLET (FP) PO SCH (09:50)
[2021-10-13] MEDS: methylPREDNISolone NA SUCC 40 MG/1 ML VIAL IVPUSH SCH ×2 (09:50→22:13)
[2021-10-13] MEDS: PANTOPRAZOLE 40 MG TABLET PO SCH (09:50)
[2021-10-13 10:14] LABS: BASO % 0.1 % (0-2.0); HEMATOCRIT 41.1 % (32.4-45.2); HEMOGLOBIN 13.3 GM/dL (10.7-15.3); LYMPH % 9.2 % (8-40); MCH 37.6 pg (25.7-33.7); MCHC 32.4 g/dl (32.0-36.0); MEAN CELL VOLUME 116.2 fl (80-96); MEAN PLT VOLUME 8.3 fl (7.5-11.1); MONO % 3.8 % (3.8-10.2); NEUT % 86.9 % (42.8-82.8); PLATELET COUNT 221 10^3/uL (134-434); RBC 3.54 M/mm3 (3.60-5.2); RDW 13.8 % (11.6-15.6); WHITE BLOOD COUNT 12.7 K/mm3 (4.0-10.0)
[2021-10-13] MEDS: CEFUROXIME AXETIL 250 MG TABLET PO SCH ×2 (10:27→22:14)
[2021-10-13 10:39] LABS: BLOOD UREA NITROGEN 59.5 mg/dL (7-18); CALCIUM 9.2 mg/dL (8.5-10.1)
[2021-10-13 10:43] LABS: CREATININE 1.2 mg/dL (0.55-1.3)
[2021-10-13 12:14] LABS: ANISOCYTOSIS 1+; MACROCYTOSIS 1+; PLATELET ESTIMATE NORMAL
[2021-10-13] MEDS: LEVALBUTEROL HCL 0.31 MG/3 ML VIAL.NEB IH SCH (21:07)
[2021-10-13] MEDS: ATORVASTATIN CA 10 MG TABLET (FP) PO SCH (22:14)
[2021-10-13] MEDS: MONTELUKAST NA 10 MG TABLET PO SCH (22:14)
[2021-10-14] MEDS: LEVOTHYROXINE NA 25 MCG TABLET (FP) PO SCH (06:14)
[2021-10-14] MEDS: INSULIN SLIDING SCALE (NOVOLOG) 1 VIAL SQ SCH ×2 (06:14→17:09)
[2021-10-14] MEDS: LEVALBUTEROL HCL 0.31 MG/3 ML VIAL.NEB IH SCH ×3 (08:18→20:18)
[2021-10-14] MEDS ORDERED: PT OWN MED DRAWER 7, Y5N ONE ×2 (09:43→21:23)
[2021-10-14] MEDS: PANTOPRAZOLE 40 MG TABLET PO SCH (09:44)
[2021-10-14] MEDS: methylPREDNISolone NA SUCC 40 MG/1 ML VIAL IVPUSH SCH (09:44)
[2021-10-14] MEDS: CEFUROXIME AXETIL 250 MG TABLET PO SCH ×2 (09:44→21:34)
[2021-10-14] MEDS: APIXABAN 2.5 MG TABLET PO SCH ×2 (09:44→21:34)
[2021-10-14] MEDS: predniSONE 20 MG TABLET (UD) PO SCH (11:05)
[2021-10-14 12:15] LABS: BASO % 0.2 % (0-2.0); HEMATOCRIT 40.9 % (32.4-45.2); HEMOGLOBIN 13.6 GM/dL (10.7-15.3); LYMPH % 7.1 % (8-40); MCHC 33.2 g/dl (32.0-36.0); MEAN CELL VOLUME 114.7 fl (80-96); MEAN PLT VOLUME 8.6 fl (7.5-11.1); MONO % 3.6 % (3.8-10.2); NEUT % 89.1 % (42.8-82.8); PLATELET COUNT 217 10^3/uL (134-434); RBC 3.57 M/mm3 (3.60-5.2); RDW 13.4 % (11.6-15.6); WHITE BLOOD COUNT 11.5 K/mm3 (4.0-10.0)
[2021-10-14 12:22] LABS: BLOOD UREA NITROGEN 56.9 mg/dL (7-18); CALCIUM 8.8 mg/dL (8.5-10.1)
[2021-10-14 12:25] LABS: CREATININE 1.2 mg/dL (0.55-1.3)
[2021-10-14 19:33] VITALS: BMI 19.1
[2021-10-14] MEDS: MONTELUKAST NA 10 MG TABLET PO SCH (21:34)
[2021-10-14] MEDS: ATORVASTATIN CA 10 MG TABLET (FP) PO SCH (21:34)
[2021-10-15] MEDS: INSULIN SLIDING SCALE (NOVOLOG) 1 VIAL SQ SCH ×2 (06:05→17:19)
[2021-10-15] MEDS: LEVOTHYROXINE NA 25 MCG TABLET (FP) PO SCH (06:05)
[2021-10-15] MEDS: LEVALBUTEROL HCL 0.31 MG/3 ML VIAL.NEB IH SCH ×2 (07:52→14:35)
[2021-10-15] MEDS ORDERED: PT OWN MED DRAWER 7, Y5N ONE ×2 (09:39→09:53)
[2021-10-15] MEDS: predniSONE 20 MG TABLET (UD) PO SCH (09:41)
[2021-10-15] MEDS: PANTOPRAZOLE 40 MG TABLET PO SCH (09:41)
[2021-10-15] MEDS: FUROSEMIDE 40 MG TABLET (FP) PO SCH (09:41)
[2021-10-15] MEDS: APIXABAN 2.5 MG TABLET PO SCH (09:41)
[2021-10-15] MEDS: CEFUROXIME AXETIL 250 MG TABLET PO SCH (09:42)
[2021-10-15] MEDS ORDERED: predniSONE 20 MG TABLET (UD) PO SCH (10:10)
[2021-10-15 15:44] VITALS: BP 129/61; PULSE 71; TEMP 98.4
[2021-10-15] MEDS ORDERED: INSULIN (LEVEMIR) 100 UNITS/ML UNITS SQ SCH (22:00)
== END 2021-10-15 18:21 | disposition home health service (06) | DRG 291 ==
LOC: JER 02:36 → JERBED 04:04 → J5S 10-08 20:26
PROVIDERS: ADMIT Internal Medicine; ATTEND Internal Medicine
DX: I13.0 Hypertensive heart and chronic kidney disease with heart failure and stage 1 through stage 4 chronic kidney disease, or unspecified chronic kidney disease (principal); I50.33 Acute on chronic diastolic (congestive) heart failure; N39.0 Urinary tract infection, site not specified; N17.9 Acute kidney failure, unspecified; E87.1 Hypo-osmolality and hyponatremia; J44.9 Chronic obstructive pulmonary disease, unspecified; F03.90 Unspecified dementia, unspecified severity, without behavioral disturbance, psychotic disturbance, mood disturbance, and anxiety; E03.9 Hypothyroidism, unspecified; E78.5 Hyperlipidemia, unspecified; J45.909 Unspecified asthma, uncomplicated; I48.91 Unspecified atrial fibrillation; H40.9 Unspecified glaucoma; D72.829 Elevated white blood cell count, unspecified; N18.9 Chronic kidney disease, unspecified; R73.9 Hyperglycemia, unspecified; E87.6 Hypokalemia
CPT/HCPCS: 36415; 71045-TC-FY; 76775-TC; 80048; 80053; 81003; 82550; 82803; 82962; 83036; 83735; 84100; 84484; 85025; 87040; 87086; 87186; 87804; 93005; 93010; 93306-TC; 94010; 94640; 94761; 97116-GP; 97162-GP; 99285-25; C9803; U0003; U0005

== ENCOUNTER 2023-05-01 12:17 | Inpatient (IN) | payer OTHER ==
[2023-05-01 16:15] LABS: BASO % 0.4 % (0-2.0); EOS % 3.1 % (0-4.5); HEMATOCRIT 35.9 % (32.4-45.2); HEMOGLOBIN 11.5 GM/dL (10.7-15.3); LYMPH % 32.6 % (8-40); MCH 35.7 pg (25.7-33.7); MEAN CELL VOLUME 111.5 fl (80-96); MONO % 9.1 % (3.8-10.2); NEUT % 54.8 % (42.8-82.8); PLATELET COUNT 377 10^3/uL (134-434); RBC 3.22 M/mm3 (3.60-5.2); RDW 16.5 % (11.6-15.6); WHITE BLOOD COUNT 11.8 K/mm3 (4.0-10.0)
[2023-05-01 16:23] LABS: INR 1.3 (0.83-1.09)
[2023-05-01 16:26] LABS: ACTIVATED PTT 33.4 SECONDS (25.2-36.5)
[2023-05-01 16:35] LABS: ANISOCYTOSIS 2+; MACROCYTOSIS 2+; OVALOCYTE 1+; TARGET CELLS 0
[2023-05-01 16:37] LABS: POTASSIUM 4.7 mmol/L (3.5-5.1)
[2023-05-01 16:39] LABS: ALBUMIN 3.4 g/dl (3.4-5.0); BLOOD UREA NITROGEN 57.8 mg/dL (7-18)
[2023-05-01 16:41] LABS: CREATININE 1.6 mg/dL (0.55-1.3)
[2023-05-01 16:43] LABS: BILIRUBIN,TOTAL 0.4 mg/dL (0.2-1); TOT PROT 8.5 g/dl (6.4-8.2)
[2023-05-01 17:10] LABS: EPI CELLS 34 /uL (0-25.1); HYALINE CASTS 1 /uL (0-3.1); PH,URINE 6.5 (5.0-8.0); URINE APPEARANCE CLEAR; URINE BACTERIA 796 /uL (0-1359); URINE BILIRUBIN NEGATIVE (NEGATIVE); URINE COLOR YELLOW; URINE GLUCOSE (UA) NEGATIVE (NEGATIVE); URINE KETONE NEGATIVE (NEGATIVE); URINE LEUK ESTERASE 3+ (NEGATIVE); URINE NITRITE NEGATIVE (NEGATIVE); URINE PROTEIN NEGATIVE (NEGATIVE); URINE RBC 14 /uL (0-23.9); URINE UROBILINOGEN 0.2 mg/dL (0.2-1.0); URINE WBC 359 /uL (0-25.8)
[2023-05-01] MEDS ORDERED: SODIUM CHLORIDE 0.9% 500 ML INFUS.BAG IV ONE (17:30)
[2023-05-01] MEDS ORDERED: CEFTRIAXONE 1 GM in DEXTROSE 5%-WATER - 50 ML IVPB ONE (17:30)
[2023-05-01] MEDS ORDERED: CEFTRIAXONE 1 GM/50 ML BAG ONE (17:52)
[2023-05-01] MEDS ORDERED: LEVALBUTEROL HCL 0.31 MG/3 ML VIAL.NEB IH PRN (18:17)
[2023-05-01] MEDS ORDERED: ALBUTEROL SO4 2.5/IPRATROPIUM 0.5 INH SOL 3 ML VIAL.NEB. NEB PRN (18:21)
[2023-05-01] MEDS ORDERED: INSULIN SLIDING SCALE (NOVOLOG) 1 VIAL SQ SCH (18:30)
[2023-05-01] MEDS ORDERED: ACETAMINOPHEN 325 MG TABLET (FP) PO PRN (20:29)
[2023-05-01 20:52] VITALS: BMI 23.3
[2023-05-01] MEDS: ATORVASTATIN CA 10 MG TABLET (FP) PO SCH (23:31)
[2023-05-01] MEDS: DOCUSATE SODIUM 100 MG CAPSULE (FP) PO SCH (23:31)
[2023-05-01] MEDS: POTASSIUM CHLORIDE 10 MEQ in SODIUM CHLORIDE 0.45% 1,000 ML IVPB SCH (23:31)
[2023-05-02] MEDS: LEVOTHYROXINE NA 25 MCG TABLET (FP) PO SCH (06:50)
[2023-05-02] MEDS ORDERED: INSULIN SLIDING SCALE (NOVOLOG) 1 VIAL SQ SCH (07:00)
[2023-05-02] MEDS: APIXABAN 2.5 MG TABLET PO SCH ×2 (10:25→22:02)
[2023-05-02] MEDS: CEFTRIAXONE 1 GM in DEXTROSE 5%-WATER - 50 ML IVPB SCH (14:12)
[2023-05-02 19:51] LABS: BASO % 0.4 % (0-2.0); EOS % 5.5 % (0-4.5); HEMATOCRIT 34.4 % (32.4-45.2); HEMOGLOBIN 11.1 GM/dL (10.7-15.3); MCH 35.1 pg (25.7-33.7); MCHC 32.3 g/dl (32.0-36.0); MEAN CELL VOLUME 108.5 fl (80-96); MEAN PLT VOLUME 7.6 fl (7.5-11.1); MONO % 9.4 % (3.8-10.2); NEUT % 60.7 % (42.8-82.8); PLATELET COUNT 320 10^3/uL (134-434); RBC 3.17 M/mm3 (3.60-5.2); RDW 16.5 % (11.6-15.6); WHITE BLOOD COUNT 12.4 K/mm3 (4.0-10.0)
[2023-05-02 20:27] LABS: POTASSIUM 5.3 mmol/L (3.5-5.1)
[2023-05-02 20:30] LABS: BLOOD UREA NITROGEN 42.3 mg/dL (7-18); CALCIUM 10.5 mg/dL (8.5-10.1)
[2023-05-02 20:32] LABS: CREATININE 1.4 mg/dL (0.55-1.3)
[2023-05-02 20:34] LABS: BILIRUBIN,TOTAL 0.4 mg/dL (0.2-1); TOT PROT 7.2 g/dl (6.4-8.2)
[2023-05-02 20:46] LABS: ALBUMIN 2.7 g/dl (3.4-5.0)
[2023-05-02] MEDS: POTASSIUM CHLORIDE 10 MEQ in SODIUM CHLORIDE 0.45% 1,000 ML IVPB SCH (21:20)
[2023-05-02] MEDS: DOCUSATE SODIUM 100 MG CAPSULE (FP) PO SCH (22:01)
[2023-05-02] MEDS: ATORVASTATIN CA 10 MG TABLET (FP) PO SCH (22:01)
[2023-05-03] MEDS: LEVOTHYROXINE NA 25 MCG TABLET (FP) PO SCH (07:04)
[2023-05-03 08:34] VITALS: PULSE 76
[2023-05-03 09:10] LABS: BASO % 0.3 % (0-2.0); EOS % 7.5 % (0-4.5); HEMATOCRIT 33.7 % (32.4-45.2); HEMOGLOBIN 10.9 GM/dL (10.7-15.3); MCH 35.8 pg (25.7-33.7); MCHC 32.3 g/dl (32.0-36.0); MEAN CELL VOLUME 110.8 fl (80-96); MEAN PLT VOLUME 7.8 fl (7.5-11.1); MONO % 8.9 % (3.8-10.2); NEUT % 58.3 % (42.8-82.8); PLATELET COUNT 305 10^3/uL (134-434); RBC 3.05 M/mm3 (3.60-5.2); WHITE BLOOD COUNT 11.4 K/mm3 (4.0-10.0)
[2023-05-03 09:26] LABS: POTASSIUM 4.7 mmol/L (3.5-5.1)
[2023-05-03 09:27] LABS: CALCIUM 10.4 mg/dL (8.5-10.1)
[2023-05-03 09:29] LABS: BLOOD UREA NITROGEN 40.1 mg/dL (7-18)
[2023-05-03] MEDS ORDERED: SODIUM CHLORIDE 1,000 ML IV SCH (09:30)
[2023-05-03 09:31] LABS: CREATININE 1.2 mg/dL (0.55-1.3)
[2023-05-03] MEDS ORDERED: CEFUROXIME AXETIL 250 MG TABLET PO SCH (10:00)
[2023-05-03] MEDS: CEFTRIAXONE 1 GM in DEXTROSE 5%-WATER - 50 ML IVPB SCH (12:02)
[2023-05-03] MEDS: APIXABAN 2.5 MG TABLET PO SCH (12:02)
[2023-05-03 13:53] VITALS: RESP 18
[2023-05-03 14:52] VITALS: BP 118/64; TEMP 97.6
[2023-05-04] MEDS ORDERED: CEFUROXIME AXETIL 250 MG TABLET PO SCH (10:00)
== END 2023-05-03 03:00 | disposition home or self-care (01) | DRG 92 ==
LOC: JER 12:17 → JERBED 17:24 → OBSVTOIN 18:28 → J8W 20:49
PROVIDERS: ADMIT Internal Medicine; ATTEND Internal Medicine
DX: R29.6 Repeated falls (principal); I48.20 Chronic atrial fibrillation, unspecified; S01.80XA Unspecified open wound of other part of head, initial encounter; F03.90 Unspecified dementia, unspecified severity, without behavioral disturbance, psychotic disturbance, mood disturbance, and anxiety; E03.9 Hypothyroidism, unspecified; E11.9 Type 2 diabetes mellitus without complications; J44.9 Chronic obstructive pulmonary disease, unspecified; E86.0 Dehydration; E83.52 Hypercalcemia; W19.XXXA Unspecified fall, initial encounter; Y93.9 Activity, unspecified; Y92.89 Other specified places as the place of occurrence of the external cause; Y99.9 Unspecified external cause status; I10 Essential (primary) hypertension
CPT/HCPCS: 36415; 70450-TC; 71045-TC-FY; 72125-TC; 72170-TC-FY; 80048; 80053; 81003; 82607; 82962; 83036; 85025; 85610; 85730; 87086; 93005; 93010; 93306-TC; 97116-GP; 97162-GP; 99285-25; G0378

== ENCOUNTER 2023-08-01 17:26 | Inpatient (IN) | payer OTHER ==
[2023-08-01 18:27] LABS: VENOUS BASE EXCESS 5.4 mmol/L (-2-2); VENOUS O2 SATURATION 27.1 % (70-80); VENOUS PCO2 47.2 mmHg (38-52); VENOUS PH 7.429 (7.310-7.410)
[2023-08-01 18:59] LABS: POTASSIUM 5.8 mmol/L (3.5-5.1)
[2023-08-01 19:00] LABS: CALCIUM 11.5 mg/dL (8.5-10.1)
[2023-08-01 19:01] LABS: BLOOD UREA NITROGEN 29.2 mg/dL (7-18)
[2023-08-01 19:04] LABS: CREATININE 1.4 mg/dL (0.55-1.3)
[2023-08-01 19:06] LABS: BILIRUBIN,TOTAL 0.5 mg/dL (0.2-1); TOT PROT 8.7 g/dl (6.4-8.2)
[2023-08-01 19:09] LABS: N-TERMINAL BNP 5236.4 pg/ml (5-450)
[2023-08-01] MEDS ORDERED: ALBUTEROL SO4 2.5/IPRATROPIUM 0.5 INH SOL 3 ML VIAL.NEB. NEB ONE (19:35)
[2023-08-01] MEDS: ALBUTEROL SO4 2.5/IPRATROPIUM 0.5 INH SOL 3 ML VIAL.NEB. NEB SCH (19:38)
[2023-08-01 20:29] LABS: PH,URINE 6.5 (5.0-8.0); URINE APPEARANCE CLEAR; URINE BILIRUBIN NEGATIVE (NEGATIVE); URINE COLOR YELLOW; URINE GLUCOSE (UA) NEGATIVE (NEGATIVE); URINE KETONE NEGATIVE (NEGATIVE); URINE LEUK ESTERASE NEGATIVE (NEGATIVE); URINE NITRITE NEGATIVE (NEGATIVE); URINE PROTEIN NEGATIVE (NEGATIVE); URINE UROBILINOGEN 0.2 mg/dL (0.2-1.0)
[2023-08-01 20:29] LABS: BASO % 0.3 % (0-2.0); EOS % 11.6 % (0-4.5); HEMATOCRIT 35.9 % (32.4-45.2); HEMOGLOBIN 11.7 GM/dL (10.7-15.3); LYMPH % 35.1 % (8-40); MCH 35.4 pg (25.7-33.7); MCHC 32.5 g/dl (32.0-36.0); MEAN PLT VOLUME 7.3 fl (7.5-11.1); MONO % 7.1 % (3.8-10.2); NEUT % 45.9 % (42.8-82.8); PLATELET COUNT 304 10^3/uL (134-434); RBC 3.29 M/mm3 (3.60-5.2); WHITE BLOOD COUNT 12.7 K/mm3 (4.0-10.0)
[2023-08-01 20:35] LABS: INR 1.29 (0.83-1.09); PROTHROMBIN TIME (PATIENT) 14.9 SEC (9.7-13.0)
[2023-08-01 20:38] LABS: ACTIVATED PTT 36.4 SECONDS (25.2-36.5)
[2023-08-01 20:44] LABS: POTASSIUM 4.3 mmol/L (3.5-5.1)
[2023-08-01 20:46] LABS: CALCIUM 11.5 mg/dL (8.5-10.1)
[2023-08-01 20:47] LABS: BLOOD UREA NITROGEN 28.9 mg/dL (7-18); MAGNESIUM 1.1 mg/dL (1.8-2.4)
[2023-08-01 20:49] LABS: ANISOCYTOSIS 2+; MACROCYTOSIS 2+; OVALOCYTE 1+
[2023-08-01 20:50] LABS: CREATININE 1.4 mg/dL (0.55-1.3)
[2023-08-01 20:51] LABS: BILIRUBIN,TOTAL 0.4 mg/dL (0.2-1); TOT PROT 8.1 g/dl (6.4-8.2)
[2023-08-01] MEDS ORDERED: MAGNESIUM SULF 50% (8.12 MEQ/2 ML-1 GM VIAL) IVPB ONE (20:52)
[2023-08-01] MEDS ORDERED: MAGNESIUM 1GM/D5W - 1 GM/100 ML IVPB IVPB ONE (20:53)
[2023-08-01] MEDS ORDERED: FUROSEMIDE 40 MG/4 ML INJECTABLE VIAL IVPUSH ONE (20:53)
[2023-08-01] MEDS ORDERED: FUROSEMIDE 40 MG/4 ML INJECTABLE VIAL ONE (21:09)
[2023-08-01] MEDS ORDERED: ALBUTEROL SO4 2.5/IPRATROPIUM 0.5 INH SOL 3 ML VIAL.NEB. NEB PRN (21:21)
[2023-08-01] MEDS ORDERED: PANTOPRAZOLE 40 MG TABLET PO ONE (21:59)
[2023-08-01] MEDS ORDERED: APIXABAN 2.5 MG TABLET ONE (22:09)
[2023-08-01] MEDS ORDERED: DOCUSATE SODIUM 100 MG CAPSULE (FP) PO ONE ×2 (22:09)
[2023-08-01] MEDS ORDERED: MONTELUKAST NA 10 MG TABLET ONE (22:09)
[2023-08-01] MEDS ORDERED: ATORVASTATIN CA 20 MG TABLET (FP) ONE (22:09)
[2023-08-01] MEDS: MONTELUKAST NA 10 MG TABLET PO SCH (22:12)
[2023-08-01] MEDS: PANTOPRAZOLE 40 MG TABLET PO SCH (22:12)
[2023-08-01] MEDS: ATORVASTATIN CA 10 MG TABLET (FP) PO SCH (22:12)
[2023-08-01] MEDS: DOCUSATE SODIUM 100 MG CAPSULE (FP) PO SCH (22:12)
[2023-08-01] MEDS: APIXABAN 2.5 MG TABLET PO SCH (22:12)
[2023-08-01] MEDS ORDERED: ACETAMINOPHEN 325 MG TABLET (FP) PO PRN (22:57)
[2023-08-02] MEDS: LEVOTHYROXINE NA 25 MCG TABLET (FP) PO SCH (06:05)
[2023-08-02] MEDS ORDERED: FUROSEMIDE 40 MG/4 ML INJECTABLE VIAL IVPUSH ONE (07:54)
[2023-08-02] MEDS ORDERED: MAGNESIUM SULF 50% (8.12 MEQ/2 ML-1 GM VIAL) IVPB ONE (07:55)
[2023-08-02] MEDS: APIXABAN 2.5 MG TABLET PO SCH ×2 (09:07→21:40)
[2023-08-02] MEDS: PANTOPRAZOLE 40 MG TABLET PO SCH (09:07)
[2023-08-02 09:14] LABS: BASO % 0.3 % (0-2.0); EOS % 14.8 % (0-4.5); HEMATOCRIT 34.9 % (32.4-45.2); HEMOGLOBIN 11.2 GM/dL (10.7-15.3); LYMPH % 20.1 % (8-40); MCH 35.2 pg (25.7-33.7); MCHC 32.1 g/dl (32.0-36.0); MEAN CELL VOLUME 109.7 fl (80-96); MEAN PLT VOLUME 7.5 fl (7.5-11.1); MONO % 8.5 % (3.8-10.2); NEUT % 56.3 % (42.8-82.8); PLATELET COUNT 308 10^3/uL (134-434); RBC 3.18 M/mm3 (3.60-5.2); RDW 15.7 % (11.6-15.6); WHITE BLOOD COUNT 10.6 K/mm3 (4.0-10.0)
[2023-08-02 09:46] LABS: POTASSIUM 3.6 mmol/L (3.5-5.1)
[2023-08-02 09:47] LABS: CALCIUM 11.7 mg/dL (8.5-10.1)
[2023-08-02 09:48] LABS: BLOOD UREA NITROGEN 28.3 mg/dL (7-18); MAGNESIUM 1.3 mg/dL (1.8-2.4)
[2023-08-02 09:51] LABS: CREATININE 1.5 mg/dL (0.55-1.3)
[2023-08-02] MEDS ORDERED: MAGNESIUM 2GM/50ML STERILE WATER IVPB IVPB ONE (10:00)
[2023-08-02 17:56] VITALS: BMI 23.6
[2023-08-02] MEDS: DOCUSATE SODIUM 100 MG CAPSULE (FP) PO SCH (21:39)
[2023-08-02] MEDS: MONTELUKAST NA 10 MG TABLET PO SCH (21:40)
[2023-08-02] MEDS: ATORVASTATIN CA 10 MG TABLET (FP) PO SCH (21:40)
[2023-08-03] MEDS: LEVOTHYROXINE NA 25 MCG TABLET (FP) PO SCH (06:43)
[2023-08-03] MEDS: PANTOPRAZOLE 40 MG TABLET PO SCH (09:48)
[2023-08-03] MEDS: APIXABAN 2.5 MG TABLET PO SCH ×2 (09:48→21:09)
[2023-08-03] MEDS ORDERED: FUROSEMIDE 40 MG/4 ML INJECTABLE VIAL IVPUSH SCH (10:00)
[2023-08-03 10:21] LABS: BASO % 0.3 % (0-2.0); EOS % 12.7 % (0-4.5); HEMATOCRIT 35.8 % (32.4-45.2); HEMOGLOBIN 11.4 GM/dL (10.7-15.3); LYMPH % 26.4 % (8-40); MCH 34.3 pg (25.7-33.7); MCHC 31.8 g/dl (32.0-36.0); MEAN CELL VOLUME 107.9 fl (80-96); MEAN PLT VOLUME 7.2 fl (7.5-11.1); MONO % 7.3 % (3.8-10.2); NEUT % 53.3 % (42.8-82.8); PLATELET COUNT 315 10^3/uL (134-434); RBC 3.32 M/mm3 (3.60-5.2); RDW 15.6 % (11.6-15.6); WHITE BLOOD COUNT 11.3 K/mm3 (4.0-10.0)
[2023-08-03 10:40] LABS: POTASSIUM 3.4 mmol/L (3.5-5.1)
[2023-08-03 10:43] LABS: BLOOD UREA NITROGEN 35.5 mg/dL (7-18); CALCIUM 11.1 mg/dL (8.5-10.1); MAGNESIUM 2.1 mg/dL (1.8-2.4)
[2023-08-03 10:47] LABS: CREATININE 1.8 mg/dL (0.55-1.3)
[2023-08-03] MEDS ORDERED: KCL 10 MEQ IVPB 10 MEQ/100 ML INFUS.BAG IVPB SCH (14:00)
[2023-08-03] MEDS ORDERED: POTASSIUM CHLORIDE TABS 20 MEQ TABLET.ER (FP) PO ONE (15:00)
[2023-08-03] MEDS: LEVALBUTEROL HCL 0.31 MG/3 ML VIAL.NEB IH SCH (20:05)
[2023-08-03] MEDS: DOCUSATE SODIUM 100 MG CAPSULE (FP) PO SCH (21:09)
[2023-08-03] MEDS: ATORVASTATIN CA 10 MG TABLET (FP) PO SCH (21:09)
[2023-08-03] MEDS: MONTELUKAST NA 10 MG TABLET PO SCH (21:09)
[2023-08-04] MEDS: LEVOTHYROXINE NA 25 MCG TABLET (FP) PO SCH (07:12)
[2023-08-04] MEDS: LEVALBUTEROL HCL 0.31 MG/3 ML VIAL.NEB IH SCH ×3 (07:20→19:37)
[2023-08-04 07:35] LABS: BASO % 0.2 % (0-2.0); EOS % 14.7 % (0-4.5); HEMATOCRIT 33.5 % (32.4-45.2); HEMOGLOBIN 10.6 GM/dL (10.7-15.3); LYMPH % 24.9 % (8-40); MCH 34.4 pg (25.7-33.7); MCHC 31.6 g/dl (32.0-36.0); MEAN PLT VOLUME 7.8 fl (7.5-11.1); MONO % 7.6 % (3.8-10.2); NEUT % 52.6 % (42.8-82.8); PLATELET COUNT 302 10^3/uL (134-434); RBC 3.07 M/mm3 (3.60-5.2); RDW 15.4 % (11.6-15.6); WHITE BLOOD COUNT 12.3 K/mm3 (4.0-10.0)
[2023-08-04 07:55] LABS: POTASSIUM 4.5 mmol/L (3.5-5.1)
[2023-08-04 07:58] LABS: CALCIUM 11.2 mg/dL (8.5-10.1)
[2023-08-04 07:59] LABS: BLOOD UREA NITROGEN 44.7 mg/dL (7-18); MAGNESIUM 1.7 mg/dL (1.8-2.4)
[2023-08-04 08:02] LABS: CREATININE 1.9 mg/dL (0.55-1.3)
[2023-08-04] MEDS ORDERED: MAGNESIUM 2GM/50ML STERILE WATER IVPB IVPB ONE (09:30)
[2023-08-04] MEDS: APIXABAN 2.5 MG TABLET PO SCH ×2 (09:48→21:09)
[2023-08-04] MEDS: PANTOPRAZOLE 40 MG TABLET PO SCH (09:48)
[2023-08-04] MEDS ORDERED: IRON SUCROSE INJECTION 300 MG in SODIUM CHLORIDE 235 ML IVPB ONE (10:00)
[2023-08-04] MEDS: DOCUSATE SODIUM 100 MG CAPSULE (FP) PO SCH (21:08)
[2023-08-04] MEDS: MONTELUKAST NA 10 MG TABLET PO SCH (21:09)
[2023-08-04] MEDS: ATORVASTATIN CA 10 MG TABLET (FP) PO SCH (21:09)
[2023-08-05] MEDS: LEVOTHYROXINE NA 25 MCG TABLET (FP) PO SCH (06:35)
[2023-08-05] MEDS: LEVALBUTEROL HCL 0.31 MG/3 ML VIAL.NEB IH SCH ×3 (08:35→20:36)
[2023-08-05 08:55] LABS: BASO % 0.3 % (0-2.0); EOS % 14.9 % (0-4.5); HEMOGLOBIN 10.9 GM/dL (10.7-15.3); LYMPH % 21.3 % (8-40); MCH 34.9 pg (25.7-33.7); MEAN CELL VOLUME 109.1 fl (80-96); MEAN PLT VOLUME 7.8 fl (7.5-11.1); MONO % 7.5 % (3.8-10.2); PLATELET COUNT 291 10^3/uL (134-434); RBC 3.12 M/mm3 (3.60-5.2); RDW 15.3 % (11.6-15.6); WHITE BLOOD COUNT 11.3 K/mm3 (4.0-10.0)
[2023-08-05 09:22] LABS: ANISOCYTOSIS 1+; MACROCYTOSIS 2+
[2023-08-05] MEDS: APIXABAN 2.5 MG TABLET PO SCH ×2 (09:24→21:43)
[2023-08-05] MEDS: PANTOPRAZOLE 40 MG TABLET PO SCH (09:24)
[2023-08-05 09:35] LABS: CALCIUM 10.6 mg/dL (8.5-10.1)
[2023-08-05 09:37] LABS: BLOOD UREA NITROGEN 38.8 mg/dL (7-18)
[2023-08-05 09:39] LABS: CREATININE 1.5 mg/dL (0.55-1.3)
[2023-08-05] MEDS ORDERED: LEVALBUTEROL HCL 0.31 MG/3 ML VIAL.NEB IH SCH (20:00)
[2023-08-05] MEDS: DOCUSATE SODIUM 100 MG CAPSULE (FP) PO SCH (21:43)
[2023-08-05] MEDS: ATORVASTATIN CA 10 MG TABLET (FP) PO SCH (21:43)
[2023-08-05] MEDS: MONTELUKAST NA 10 MG TABLET PO SCH (21:43)
[2023-08-06] MEDS: LEVOTHYROXINE NA 25 MCG TABLET (FP) PO SCH (06:52)
[2023-08-06 08:18] LABS: POTASSIUM 3.9 mmol/L (3.5-5.1)
[2023-08-06 08:19] LABS: ALBUMIN 2.7 g/dl (3.4-5.0); BLOOD UREA NITROGEN 35.1 mg/dL (7-18); CALCIUM 10.8 mg/dL (8.5-10.1)
[2023-08-06 08:23] LABS: CREATININE 1.4 mg/dL (0.55-1.3)
[2023-08-06 08:24] LABS: BILIRUBIN,TOTAL 0.7 mg/dL (0.2-1); TOT PROT 7.5 g/dl (6.4-8.2)
[2023-08-06] MEDS: LEVALBUTEROL HCL 0.31 MG/3 ML VIAL.NEB IH SCH ×2 (09:39→14:40)
[2023-08-06] MEDS: APIXABAN 2.5 MG TABLET PO SCH (09:40)
[2023-08-06] MEDS: PANTOPRAZOLE 40 MG TABLET PO SCH (09:40)
[2023-08-06 11:22] VITALS: BP 133/62; PULSE 110; RESP 18; TEMP 97.7
== END 2023-08-06 16:00 | disposition home or self-care (01) | DRG 291 ==
LOC: JER 17:26 → JERBED 20:54 → OBSVTOIN 21:25 → J4W 23:13
PROVIDERS: ADMIT Internal Medicine; ATTEND Internal Medicine
DX: I13.0 Hypertensive heart and chronic kidney disease with heart failure and stage 1 through stage 4 chronic kidney disease, or unspecified chronic kidney disease (principal); I50.33 Acute on chronic diastolic (congestive) heart failure; N17.9 Acute kidney failure, unspecified; E83.52 Hypercalcemia; E87.6 Hypokalemia; J98.11 Atelectasis; I48.91 Unspecified atrial fibrillation; E03.9 Hypothyroidism, unspecified; E78.00 Pure hypercholesterolemia, unspecified; F03.90 Unspecified dementia, unspecified severity, without behavioral disturbance, psychotic disturbance, mood disturbance, and anxiety; I08.1 Rheumatic disorders of both mitral and tricuspid valves; R26.81 Unsteadiness on feet; E83.42 Hypomagnesemia; R00.0 Tachycardia, unspecified; M17.12 Unilateral primary osteoarthritis, left knee; D72.829 Elevated white blood cell count, unspecified; R13.19 Other dysphagia; K80.20 Calculus of gallbladder without cholecystitis without obstruction; N18.9 Chronic kidney disease, unspecified; D50.9 Iron deficiency anemia, unspecified; Z86.73 Personal history of transient ischemic attack (TIA), and cerebral infarction without residual deficits
CPT/HCPCS: 0241U-QW; 36415; 71045-TC-FY; 71250-TC; 76775-TC; 76856-TC; 80048; 80053; 81003; 82310; 82607; 82728; 82746; 82803; 83540; 83550; 83735; 83880; 83970; 84484; 85025; 85610; 85730; 87086; 93005; 93010; 94761; 97116-GP; 97162-GP; 99285-25; G0378; J1756